=== PATIENT | female | born 1950 | race Caucasian/White ===

== ENCOUNTER → 2018-03-16 10:38 | Outpatient (CLI) | payer MEDICARE, OTHER, SELFPAY ==
--- NOTE | 2018-03-16 10:41 | BI_ITS ---
MAMMOGRAPHY - BILATERAL SCREENING REASON FOR EXAM: Female, 67 years old. Routine annual screening examination. PERTINENT HISTORY: Grandmother with breast cancer. TECHNIQUE: Digital bilateral breast festus (3D mammographic acquisition) in the CC and MLO projections. 2-D mediolateral oblique (MLO) and craniocaudad (CC) views of both breasts were obtained. CAD: Full Field Digital Mammography with Computer Added Detection was performed. COMPARISON: Comparison is made with prior study dated November 10, 2016 and July 27, 2015. FINDINGS: Breast Composition: There are scattered areas of fibroglandular density. There are no dominant masses or suspicious calcifications. There is asymmetry of breast tissue where more breast tissue is seen in the upper outer quadrant of the left breast as compared to the right side. No other significant abnormalities are identified. There has been no significant change since the prior study. BI/SCREENING MAMM (CAD), BILAT IMPRESSION: Stable bilateral screening mammogram. Yearly follow-up mammogram recommended. (A) ASSESSMENT CATEGORY: BIRADS Category 2: Benign. A letter regarding these results will be sent to the patient by the facility within 30 days. Approximately 10% of breast cancers are not detected by mammography. A normal mammogram should not delay biopsy of a clinically suspicious abnormality. [id number] Electronically Signed: Suleman Soot MD at 12:43 EDT Tel [phone], Service support ,
== END ==
PROVIDERS: Family Provider Student in an Organized Health Care Education/Training Program; PCP Student in an Organized Health Care Education/Training Program; Visit Provider Student in an Organized Health Care Education/Training Program
DX: Z12.31 Encounter for screening mammogram for malignant neoplasm of breast (principal)
CPT/HCPCS: 77063; 77067

== ENCOUNTER → 2018-07-05 06:49 | Outpatient (CLI) | payer MEDICARE, OTHER, SELFPAY ==
--- NOTE | 2018-07-05 15:05 | STRESSREP ---
Stress Test Report Exercise myocardial perfusion stress test. 68-year-old lady with a history of chest pain. Stress protocol: Resting EKG demonstrates normal sinus rhythm with a rate of 61 bpm normal intervals and noted resting blood pressure 118/70 6 m of mercury. The patient exercised according to regular Arnie protocol for total duration of 8 minutes and 30 seconds the maximum heart rate attained was 166 bpm which was 107% of maximum predicted heart rate the maximum workload was 10.1 metabolic equivalents. At rest there were no ST or T wave changes noted suggest ischemia peak exercise upsloping ST changes only were noted with no meet the criteria for ischemia. No clinical angina was noted. The test was terminated due to leg fatigue. The resting blood pressure was 118/76 with a peak blood pressure 164/72. Myocardial perfusion protocol. 11.8 mCi of technetium 99m sestamibi was injected at rest. The patient exercised according to regular Arnie protocol for 8 minutes and 30 seconds attaining 107% of maximum predicted heart rate at peak exercise 32.9 mCi of technetium 99m sestamibi was injected stress images were obtained stress and rest images were reconstructed and compared in the short axis vertical and horizontal long axis. Gated images were also obtained Perfusion SPECT analysis: Review of the stress images demonstrate normal uptake of tracer noted in all areas of the myocardium. The resting images similarly demonstrate normal uptake of tracer noted in all areas of myocardium. No areas of reversibility are noted to suggest ischemia. Gated SPECT analysis: The gated ejection fraction is 81%. Conclusion: Normal exercise myocardial perfusion stress test with no evidence of ischemia at a high workload. Preserved ejection fraction. Excellent functional capacity.
== END ==
PROVIDERS: Family Provider Student in an Organized Health Care Education/Training Program; PCP Student in an Organized Health Care Education/Training Program
DX: I25.10 Atherosclerotic heart disease of native coronary artery without angina pectoris (principal)
CPT/HCPCS: 78452; 93017; A9500; A4216

== ENCOUNTER 2018-11-06 08:59 | Emergency (ER) | payer MEDICARE, OTHER, SELFPAY ==
[2018-11-06 09:00] VITALS: BP 156/77; PULSE 72; RESP 18; TEMP 36.6; O2SAT 97; BMI 20.9
--- NOTE | 2018-11-06 10:13 | CT_ITS ---
STUDY: CTA CHEST/THORAX REASON FOR EXAM: Female, 68 years old. Left toes turning blue. RADIATION DOSAGE (If Supplied By Facility): CTDIvol = ( 5.19 ) mGy, DLP = ( 423.98 ) mGycm TECHNIQUE: The examination was performed with the intravenous administration of Isovue 370 100CC IV. Post-processing of the angiographic images was performed, with multiplanar reformation and 3D reconstruction. Individualized dose optimization techniques were used for this CT. COMPARISON: CT chest without contrast August 11, 2017 FINDINGS: Normal enhancement of the main pulmonary artery and right and left pulmonary arteries. Normal enhancement of the bilateral peripheral pulmonary arteries. There is no demonstrated pulmonary embolism. Normal thoracic aorta and visualized great vessels. There is no demonstrated aortic dissection. Normal heart and pericardium. There are calcifications of the coronary arteries. Normal mediastinum. Normal hilar regions. Normal visualized trachea and bronchi. The lungs are well expanded. Stable 2-3 mm nodular density at the anterolateral periphery of the right middle lobe on series 2 image 61. Stable 2-3 mm nodular density in the anterolateral periphery of the basilar right lower lobe on series 2 image 76. There is minor subsegmental platelike atelectasis in the inferior left lung base. Normal pleura. Normal chest wall structures. There are stable multilevel degenerative changes of the thoracic spine. There is mild left and anterior wedging of the T11 and T12 vertebrae with an exaggerated dorsal kyphosis and 25 degree dextroscoliosis centered at T12. A moderate size retrocardiac hiatal hernia is now present. IMPRESSION: 1. No demonstrated pulmonary embolism or arterial dissection. 2. Moderate size retrocardiac hiatal hernia now present. 3. Atherosclerotic vascular calcifications again noted. 4. Stable very small nodular densities in the lateral right lung base, as noted. These do not require specific radiographic follow-up. 5. Stable degenerative changes of the spine as well as exaggerated kyphosis and dextroscoliosis centered at T12. Electronically Signed: Chau Howell MD at 13:38 EST , Service support , PROCEDURE: CTA ABDOMEN AND PELVIS REASON FOR EXAM: Female, 68 years old. Left toes turning blue. RADIATION DOSAGE (If Supplied By Facility): CTDIvol = ([ ]) mGy, DLP = ([ ]) mGycm Individualized dose optimization techniques were used for this CT. ? TECHNIQUE: Axial CT angiography multi-detector data acquisition was obtained from the lung bases to the ischial tuberosities following intravenous administration of 100 ml of Isovue-370 contrast. Axial images and MIP images were reconstructed from the axial data set. Post-processing of the angiographic images was performed, with multiplanar reformation and 3D reconstruction. TECHNICAL QUALITY: Good COMPARISON: None. Descriptors of Narrowing: None (0%) Mild (< 50%) Moderate (50-70%) Severe (70-90%) Subtotal/Total Occlusion (90-100%) Non-Evaluable (technically non-diagnostic) FINDINGS: Abdominal aorta: No demonstrated plaquing, narrowing aneurysm, or dissection. Celiac artery: Mild calcific atherosclerotic ostial narrowing. Superior mesenteric artery: No demonstrated narrowing. Inferior mesenteric artery: No demonstrated narrowing. Right renal artery(arteries): No demonstrated narrowing. Left renal artery(arteries): No demonstrated narrowing. Right common iliac artery: Mild eccentric calcific atherosclerotic plaquing with no demonstrated narrowing. Right external iliac artery: No demonstrated narrowing. Right internal iliac artery: No demonstrated narrowing. Left common iliac artery: No demonstrated narrowing. Left external iliac artery: Mild narrowing at the proximal to mid third of the vessel due to mild plaquing or focal, poorly defined dissection (series 601 images 196-204). Left internal iliac artery: No demonstrated narrowing. The visualized lung bases are unremarkable. The visualized portions of the heart are within normal limits. Normal liver. The patent portal vein diameter is 10.5 mm. Normal gallbladder and extrahepatic biliary system. The diameter of the common bile duct is 5 mm. Normal spleen. Normal pancreas. Normal bilateral adrenal glands. Normal right kidney. Normal left kidney. No hydronephrosis. Normal visualized stomach. Normal small intestine. Normal colon. The appendix is visualized and appears normal. There are a few lymph nodes at the upper limits of normal size in the central left mesentery. Normal inferior vena cava. Normal retroperitoneum. Normal urinary bladder. There is absence of the uterus consistent with a prior hysterectomy. There is a very small elongated umbilical hernia containing fat. There are mild degenerative changes of the visualized lumbar spine and a 30 degree levoscoliosis centered at the upper aspect of L2. Relative lucency with coarsened trabeculae in the mid body of the L4 vertebra may represent an hemangioma. CT/CT ANGIO ABD&PEL W/O&W/DYE IMPRESSION: 1. Mild narrowing in the proximal to mid left external iliac artery due to noncalcified plaquing or focal, poorly defined dissection. No other demonstrated inflow stenosis. There is no aortic aneurysm. 2. Prior hysterectomy. 3. Degenerative changes of the spine, including a 30 degree levoscoliosis. Possible hemangioma at the L4 vertebra. Electronically Signed: Chau Howell MD at 13:50 EST , Service support ,
--- NOTE | 2018-11-06 10:14 | VDLE_ITS ---
Reason For Study: LEG PAIN RIGHT LEFT GSV is normal. GSV is normal. CFV is compressible, spontaneous, phasic, CFV is compressible, spontaneous, phasic, competent and demonstrates normal competent, and demonstrates normal augmentation. augmentation. FV is compressible, spontaneous, phasic, FV is compressible, spontaneous, phasic, competent and demonstrates normal competent and demonstrates normal augmentation. augmentation. POP V is compressible, spontaneous, phasic, POP V is compressible, spontaneous, phasic, competent and demonstrates normal competent and demonstrates normal augmentation. augmentation. T/P Trunk is compressible. T/P Trunk is compressible. PTV is compressible. PTV is compressible. RT PerV is compressible. LT PerV is compressible. Procedure Exam performed portable in ED. A preliminary report was called and/or faxed to Dr. Grullon. Interpretation Summary No evidence for acute deep venous thrombosis bilateral lower extremities with patent and compressible bilateral great saphenous veins. Ordering Physician: Maria Grullon Performed By: Jaquelin Amanda RVT
--- NOTE | 2018-11-06 10:26 | NURSING ---
LET [employer]INGLE [employer] OPERATOR KNOW OF VENOUS DOPPLER. THEY ARE IN HOUSE. HE WILL LET THEM KNOW
--- NOTE | 2018-11-06 10:32 | CT_ITS ---
STUDY: CTA CHEST/THORAX REASON FOR EXAM: Female, 68 years old. Left toes turning blue. RADIATION DOSAGE (If Supplied By Facility): CTDIvol = ( 5.19 ) mGy, DLP = ( 423.98 ) mGycm TECHNIQUE: The examination was performed with the intravenous administration of Isovue 370 100CC IV. Post-processing of the angiographic images was performed, with multiplanar reformation and 3D reconstruction. Individualized dose optimization techniques were used for this CT. COMPARISON: CT chest without contrast August 11, 2017 FINDINGS: Normal enhancement of the main pulmonary artery and right and left pulmonary arteries. Normal enhancement of the bilateral peripheral pulmonary arteries. There is no demonstrated pulmonary embolism. Normal thoracic aorta and visualized great vessels. There is no demonstrated aortic dissection. Normal heart and pericardium. There are calcifications of the coronary arteries. Normal mediastinum. Normal hilar regions. Normal visualized trachea and bronchi. The lungs are well expanded. Stable 2-3 mm nodular density at the anterolateral periphery of the right middle lobe on series 2 image 61. Stable 2-3 mm nodular density in the anterolateral periphery of the basilar right lower lobe on series 2 image 76. There is minor subsegmental platelike atelectasis in the inferior left lung base. Normal pleura. Normal chest wall structures. There are stable multilevel degenerative changes of the thoracic spine. There is mild left and anterior wedging of the T11 and T12 vertebrae with an exaggerated dorsal kyphosis and 25 degree dextroscoliosis centered at T12. A moderate size retrocardiac hiatal hernia is now present. IMPRESSION: 1. No demonstrated pulmonary embolism or arterial dissection. 2. Moderate size retrocardiac hiatal hernia now present. 3. Atherosclerotic vascular calcifications again noted. 4. Stable very small nodular densities in the lateral right lung base, as noted. These do not require specific radiographic follow-up. 5. Stable degenerative changes of the spine as well as exaggerated kyphosis and dextroscoliosis centered at T12. Electronically Signed: Chau Howell MD at 13:38 EST , Service support , PROCEDURE: CTA ABDOMEN AND PELVIS REASON FOR EXAM: Female, 68 years old. Left toes turning blue. RADIATION DOSAGE (If Supplied By Facility): CTDIvol = ([ ]) mGy, DLP = ([ ]) mGycm Individualized dose optimization techniques were used for this CT. ? TECHNIQUE: Axial CT angiography multi-detector data acquisition was obtained from the lung bases to the ischial tuberosities following intravenous administration of 100 ml of Isovue-370 contrast. Axial images and MIP images were reconstructed from the axial data set. Post-processing of the angiographic images was performed, with multiplanar reformation and 3D reconstruction. TECHNICAL QUALITY: Good COMPARISON: None. Descriptors of Narrowing: None (0%) Mild (< 50%) Moderate (50-70%) Severe (70-90%) Subtotal/Total Occlusion (90-100%) Non-Evaluable (technically non-diagnostic) FINDINGS: Abdominal aorta: No demonstrated plaquing, narrowing aneurysm, or dissection. Celiac artery: Mild calcific atherosclerotic ostial narrowing. Superior mesenteric artery: No demonstrated narrowing. Inferior mesenteric artery: No demonstrated narrowing. Right renal artery(arteries): No demonstrated narrowing. Left renal artery(arteries): No demonstrated narrowing. Right common iliac artery: Mild eccentric calcific atherosclerotic plaquing with no demonstrated narrowing. Right external iliac artery: No demonstrated narrowing. Right internal iliac artery: No demonstrated narrowing. Left common iliac artery: No demonstrated narrowing. Left external iliac artery: Mild narrowing at the proximal to mid third of the vessel due to mild plaquing or focal, poorly defined dissection (series 601 images 196-204). Left internal iliac artery: No demonstrated narrowing. The visualized lung bases are unremarkable. The visualized portions of the heart are within normal limits. Normal liver. The patent portal vein diameter is 10.5 mm. Normal gallbladder and extrahepatic biliary system. The diameter of the common bile duct is 5 mm. Normal spleen. Normal pancreas. Normal bilateral adrenal glands. Normal right kidney. Normal left kidney. No hydronephrosis. Normal visualized stomach. Normal small intestine. Normal colon. The appendix is visualized and appears normal. There are a few lymph nodes at the upper limits of normal size in the central left mesentery. Normal inferior vena cava. Normal retroperitoneum. Normal urinary bladder. There is absence of the uterus consistent with a prior hysterectomy. There is a very small elongated umbilical hernia containing fat. There are mild degenerative changes of the visualized lumbar spine and a 30 degree levoscoliosis centered at the upper aspect of L2. Relative lucency with coarsened trabeculae in the mid body of the L4 vertebra may represent an hemangioma. CT/CTA Chest W/WO Contrast IMPRESSION: 1. Mild narrowing in the proximal to mid left external iliac artery due to noncalcified plaquing or focal, poorly defined dissection. No other demonstrated inflow stenosis. There is no aortic aneurysm. 2. Prior hysterectomy. 3. Degenerative changes of the spine, including a 30 degree levoscoliosis. Possible hemangioma at the L4 vertebra. Electronically Signed: Chau Howell MD at 13:50 EST , Service support ,
[2018-11-06 10:44] LABS: Absolute Lymphocyte Count 1.25 X10^3/ul (0.83-4.51); Absolute Neutrophil Count 5.4 X10^3/uL (2.0-7.7); Basophil# 0.02 X10^3/uL; Basophil% 0.3 % (0-1); Eosinophil# 0.02 X10^3/uL; Eosinophils% 0.3 % (0-5); Hematocrit 37.7 % (37-47); Hemoglobin 12.7 g/dl (12.0-15.0); Lymphocyte # 1.25 X10^3/ul (4.0); Lymphocyte % 17.3 % (19-41); Mean Corp Hgb Conc 33.7 g/gl (32-36); Mean Corpuscular Hgb 30.1 pg (27.0-32.0); Mean Corpuscular Volume 89.3 fL (81-99); Mean Platelet Vol. 9.4 fl (6.2-12.0); Monocyte# 0.56 X10^3/uL; Monocyte% 7.8 % (0-10); Neutrophil # 5.35 X10^3/uL (2.7-7.7); Neutrophil % 74.2 % (47-70); Platelet Count 310 K/mm3 (150-450); RBC Distribution Width CV 13.3 % (11.6-14.6); RBC Distribution Width SD 42.7 fl (35.1-43.9); Red Blood Count 4.22 M/mm3 (4.2-5.4); White Blood Count 7.2 K/mm3 (4.4-11.0)
[2018-11-06 10:45] LABS: POSITIVE COUNT NO; POSITIVE DIFFERENTIAL NO; POSITIVE MORPHOLOGY NO
[2018-11-06] MEDS: 0.9% Normal Saline 1,000 ML 150 ML IV (10:50)
[2018-11-06 10:56] LABS: Anion Gap 10 (5-15); BUN 12 mg/dL (7-18); BUN/Creat Ratio 17.1 RATIO (10-20); Calcium,Total 9.2 mg/dL (8.5-10.1); Chloride 102 mmol/L (98-107); EST Glomerular Filtration Rate 88 mL/min (>60); Est Glom Filt Rate - Afr Amer 107 mL/min (>60); Estimated Creatinine Clearance 51.51 ml/min; Glucose 102 mg/dL (74-106); Sodium Level 137 mmol/L (136-145)
--- NOTE | 2018-11-06 12:04 | EKG12_ITS ---
Test Reason : CHEST PRESSUE Blood Pressure : / mmHG Vent. Rate : 068 BPM Atrial Rate : 068 BPM P-R Int : 140 ms QRS Dur : 078 ms QT Int : 428 ms P-R-T Axes : 046 001 053 degrees QTc Int : 455 ms Normal sinus rhythm with sinus arrhythmia Possible Left atrial enlargement Borderline ECG Confirmed by JIMMIE WARD, PARRIS ([id number]), video news editor ELÍAS BARBOUR ([id number]) on 11/09/2018 10:03:22 AM Referred By: YRN Confirmed By:PARRIS SAMUEL MD
[2018-11-06 12:18] VITALS: PULSE 67; RESP 16; O2SAT 100
--- NOTE | 2018-11-06 15:00 | NURSING ---
PAGED DR JONAS, VASCULAR FROM [facility]. DR DERICK WAYNE IS THE [employer] MOLDER
--- NOTE | 2018-11-06 15:28 | ED.VISSUMM ---
- ER Visit Summary Date of Service: 11/06/18 Chief Complaint: [New discoloration to toes] History of Present Illness: The patient is a 68 F [presents to the emergency department complaint of discoloration to the left toes that started 3 weeks ago. Patient was seen as an outpatient by primary care and had ABIs performed which apparently were normal. Patient was told to follow-up with vascular surgery. Patient states that over the last couple days she has noticed increased discoloration to her right toes as well intermittently. Patient also developed discomfort in her left calf today. Patient denies any claudication symptoms. Patient is able to walk on a treadmill without difficulty. Patient states that if she props her feet up the discoloration tends to resolve. She denies any chest pain or shortness of breath. She denies any fevers. Patient states overall she feels great otherwise.] Physical Examination: [HEENT-PERRLA, EOMI. Cranial nerves II through XII grossly intact. TMs clear. Mucous membranes moist. No adenopathy. Cardiovascular-regular rate and rhythm with 2 out of 6 systolic ejection murmur noted. Lungs-clear to auscultation, chest wall stable without crepitus or subcu emphysema Abdomen-normoactive bowel sounds, soft, nontender, no rebound or rigidity, no peritoneal signs. Extremities-intact ?4, normal range of motion, normal pulses, atraumatic. Evaluation of the toes does reveal a bluish discoloration to the toes on the left and right feet. Patient has normal pulses in both lower extremities. No erythema or cellulitis. There are no septic emboli noted. No petechiae. No Janeway lesions on the hands.] Test Results: [CBC with differential obtained was normal. Chemistries were normal. Venous ultrasounds of both lower extremities were negative for DVT. CTA of the chest obtained showed nothing acute. CT of the abdomen and pelvis showed a mild stenosis in the left external iliac artery with possible ill-defined dissection.] Emergency Department Course and Treatment: [Patient case was discussed with who was covering for Dr. Marie at [facility]. I discussed findings on CTA of the abdomen and it was not felt that these findings were significant however I was advised that patient follow-up with our office next week. Based on discussions I had with the vascular surgeon today and my exam I suspect patient may have a rainouts type phenomenon. I do not feel she has septic emboli or endocarditis. I was asked to have patient start nifedipine ER.] Treatment Plan: [Start patient on nifedipine ER and follow-up with vascular surgery] Disposition: [Discharged home in stable condition] Impression: [Vasculitis/Raynaud's phenomena] This note was generated with [employer] dictation software. It may contain incorrect words, spelling, and punctuation that were not noted in review of the chart prior to signing ED Disposition - Plan for ED Patient: Referrals: Naresh Payne DO [Primary Care Provider] -
--- NOTE | 2018-11-06 15:33 | ED.DCSUM_ITS ---
- ER Visit Summary Date of Service: 11/06/18 Chief Complaint: [New discoloration to toes] History of Present Illness: The patient is a 68 F [presents to the emergency department complaint of discoloration to the left toes that started 3 weeks ago. Patient was seen as an outpatient by primary care and had ABIs performed which apparently were normal. Patient was told to follow-up with vascular surgery. Patient states that over the last couple days she has noticed increased discoloration to her right toes as well intermittently. Patient also developed discomfort in her left calf today. Patient denies any claudication symptoms. Patient is able to walk on a treadmill without difficulty. Patient states that if she props her feet up the discoloration tends to resolve. She denies any chest pain or shortness of breath. She denies any fevers. Patient states overall she feels great otherwise.] Physical Examination: [HEENT-PERRLA, EOMI. Cranial nerves II through XII grossly intact. TMs clear. Mucous membranes moist. No adenopathy. Cardiovascular-regular rate and rhythm with 2 out of 6 systolic ejection murmur noted. Lungs-clear to auscultation, chest wall stable without crepitus or subcu emphysema Abdomen-normoactive bowel sounds, soft, nontender, no rebound or rigidity, no peritoneal signs. Extremities-intact ?4, normal range of motion, normal pulses, atraumatic. Evaluation of the toes does reveal a bluish discoloration to the toes on the left and right feet. Patient has normal pulses in both lower extremities. No erythema or cellulitis. There are no septic emboli noted. No petechiae. No Janeway lesions on the hands.] Test Results: [CBC with differential obtained was normal. Chemistries were normal. Venous ultrasounds of both lower extremities were negative for DVT. CTA of the chest obtained showed nothing acute. CT of the abdomen and pelvis showed a mild stenosis in the left external iliac artery with possible ill- defined dissection.] Emergency Department Course and Treatment: [Patient case was discussed with who was covering for Dr. Marie at [facility]. I discussed findings on CTA of the abdomen and it was not felt that these findings were significant however I was advised that patient follow-up with our office next week. Based on discussions I had with the vascular surgeon today and my exam I suspect patient may have a rainouts type phenomenon. I do not feel she has septic emboli or endocarditis. I was asked to have patient start nifedipine ER.] Treatment Plan: [Start patient on nifedipine ER and follow-up with vascular surgery] Disposition: [Discharged home in stable condition] Impression: [Vasculitis/Raynaud's phenomena] This note was generated with [employer] dictation software. It may contain incorrect words, spelling, and punctuation that were not noted in review of the chart prior to signing ED Disposition - Plan for ED Patient: Referrals: Naresh Payne DO [Primary Care Provider] -
--- NOTE | 2018-11-06 15:33 | ED.DEP ---
ED Disposition - Plan for ED Patient: Instructions: Raynaud's Disease Prescriptions: Nifedipine [Nifedipine ER] 30 mg PO PRN PRN #30 tablet.er PRN Reason: Rash/Topical Irritation Referrals: Naresh Payne DO [Primary Care Provider] - Additional Instructions: See Dr. Marie next week or Dr. Anthony Cartwright
[2018-11-06 15:40] VITALS: BP 116/69; PULSE 74; RESP 16; O2SAT 98
== END 2018-11-06 15:44 | disposition home or self-care (01) ==
LOC: ED 10:31
PROVIDERS: Emergency Provider Emergency Medicine; Family Provider Student in an Organized Health Care Education/Training Program; PCP Student in an Organized Health Care Education/Training Program
DX: I77.6 Arteritis, unspecified (principal); I73.00 Raynaud's syndrome without gangrene; I10 Essential (primary) hypertension; E78.00 Pure hypercholesterolemia, unspecified; M79.605 Pain in left leg; M79.604 Pain in right leg
CPT/HCPCS: 71275; 74174; 80048; 85025; 93005; 93970; 96360; 96361; 99283; J7030; Q9967; A4216

== ENCOUNTER → 2019-07-07 08:40 | Outpatient (CLI) | payer MEDICARE, OTHER, SELFPAY ==
[2019-06-01 10:21] VITALS: BMI 21.6
--- NOTE | 2019-07-07 08:48 | RAD_ITS ---
STUDY: X-RAY - LUMBAR SPINE REASON FOR EXAM: Female, 69 years old. Increasing low back pain. TECHNIQUE: 3 view(s) of the lumbar spine were obtained. COMPARISON: 07/16/2017 radiographs. FINDINGS: No visible fracture. No osseous destruction. Alignment unchanged with moderate to severe left scoliosis centered at L2. Mild degenerative changes. Soft tissues unremarkable. RAD/Lumbar Spine 2 or 3 Views IMPRESSION: No acute osseous abnormality. Moderate to severe left scoliosis centered at L2. Electronically Signed: Fabián Ribeiro, at 4:23 EDT Tel , Service support ,
== END ==
PROVIDERS: Family Provider Student in an Organized Health Care Education/Training Program; PCP Student in an Organized Health Care Education/Training Program; Referring Provider Student in an Organized Health Care Education/Training Program; Visit Provider Student in an Organized Health Care Education/Training Program
DX: M54.5 Low back pain (principal); M81.8 Other osteoporosis without current pathological fracture
CPT/HCPCS: 72100

== ENCOUNTER → 2019-07-26 10:41 | Outpatient (CLI) | payer MEDICARE, OTHER, SELFPAY ==
[2019-06-01 10:21] VITALS: BMI 21.6
--- NOTE | 2019-07-26 10:56 | BD_ITS ---
STUDY: DUAL ENERGY X-RAY ABSORPTIOMETRY / DXA REASON FOR EXAM: Female, 69 years old. The patient is postmenopausal. Loss of height. TECHNIQUE: Bone Mineral Density (BMD) measurements of lumbar spine and bilateral hips were obtained. COMPARISON: Comparison is made with prior study dated July 16, 2017. FINDINGS: Lumbar Spine (L1-L4): g/cm2 (0.822) / T-score (-3.2) / Z-score (-1.5) Findings are suggestive of osteoporosis with a high fracture risk. Increased thoracic kyphosis. Left Femur Total: g/cm2 (0.769) / T-score (-1.9) / Z-score (-0.6) Left Femoral Neck: g/cm2 (0.752) / T-score (-2.1) / Z-score (-0.5) Right Femur Total: g/cm2 (0.781) / T-score (-1.8) / Z-score (-0.5) Right Femoral Neck: g/cm2 (0.787) / T-score (-1.8) / Z-score (-0.2) The T-Scores on the most recent prior examination were: Lumbar Spine (L1-L4): There has been worsening of bone density since the previous examination. Left Femur Total: which represents a worsening of 2.5%. Right Femur Total: which represents a worsening of 2.4%. BD/Dexa Bone Density Study IMPRESSION: The patient is considered osteoporotic as outlined below according to World Jesus Organization (WHO) criteria with a high fracture risk. There has been worsening of bone density since the previous examination. Reference Information: The T-score is the number of standard deviations above or below the standard which is normal for young adults at their peak bone mineral density. The World Health Organization (WHO) interprets the T-scores as follows: Above -1 Normal bone density Between -1 and -2.5 Osteopenia Equal to / or below -2.5 Osteoporosis As a practical clinical guideline, osteopenia may be graded as follows: Mild -1 through -1.5 Moderate -1.6 through -2.0 Severe -2.1 through -2.4 The Z-score is the number of standard deviations above or below age-matched controls. A Z-score of less than -1.5 would be considered abnormal. References: 1. NIH Osteoporosis and Related Bone Diseases http://www.osteo.org 2. International Society for Clinical Densitometry http://www.iscd.org 3. National Osteoporosis Foundation http://www.nof.org Electronically Signed: Suleman Soto, at 15:14 EST , Service support ,
== END ==
PROVIDERS: Family Provider Student in an Organized Health Care Education/Training Program; PCP Student in an Organized Health Care Education/Training Program; Referring Provider Student in an Organized Health Care Education/Training Program; Visit Provider Student in an Organized Health Care Education/Training Program
DX: M81.8 Other osteoporosis without current pathological fracture (principal); M54.5 Low back pain
CPT/HCPCS: 77080

== ENCOUNTER → 2019-11-24 | Outpatient (CLI) | payer MEDICARE, SELFPAY ==
[2019-06-01 10:21] VITALS: BMI 21.6
[2019-09-26 08:23] VITALS: BMI 21.6
--- NOTE | 2019-11-24 10:05 | BI_ITS ---
MAMMOGRAPHY - BILATERAL SCREENING REASON FOR EXAM: Female, 69 years old. Routine annual screening examination. PERTINENT HISTORY: Grandmother with breast cancer. TECHNIQUE: Digital bilateral breast jude (3D mammographic acquisition) in the CC and MLO projections. 2-D mediolateral oblique (MLO) and craniocaudad (CC) views of both breasts were obtained. CAD: Full Field Digital Mammography with Computer Added Detection was performed. COMPARISON: Comparison is made with prior study dated March 16, 2018 and November 10, 2016. FINDINGS: Breast Composition: There are scattered areas of fibroglandular density. There are no dominant masses or suspicious calcifications. Stable asymmetry of breast tissue where more breast tissue is seen in the upper outer quadrant of the left breast as compared to the left side. No other significant abnormalities are identified. There has been no significant change since the prior study. BI/SCREEN MAMM (CAD) W/JUDE BILAT IMPRESSION: Stable bilateral screening mammogram. Yearly follow-up mammogram recommended. (A) ASSESSMENT CATEGORY: BIRADS Category 2: Benign. A letter regarding these results will be sent to the patient by the facility within 30 days. Approximately 10% of breast cancers are not detected by mammography. A normal mammogram should not delay biopsy of a clinically suspicious abnormality. [id number] Electronically Signed: Suleman Soto, at 12:12 EST , Service support ,
--- NOTE | 2019-11-24 10:39 | ECHOD_ITS ---
Reason For Study: MITRAL REGURGITATION Procedure This was a 2D Doppler, Color Flow transthoracic echocardiogram. Exam performed in department. Left Ventricle Normal LV size. The estimated ejection fraction is 60 %. No evidence for diastolic dysfunction. No regional wall motion abnormalities noted. Right Ventricle Normal RV size. Normal systolic function. Atria Normal left atrium. Normal right atrium. No doppler evidence for ASD. Mitral Valve Mild mitral valve prolapse, posterior leaflet. There is no mitral valve stenosis. Trivial mitral valve insufficiency. Tricuspid Valve There is no tricuspid stenosis. Trivial tricuspid valve insufficiency. Pulmonary artery systolic pressure is 30 mmHg. Aortic Valve Trisinus/trileaflet aortic valve. There is no aortic stenosis. No aortic valve insufficiency. Pulmonic Valve There is no pulmonic valvular stenosis. No pulmonic valve insufficiency. Great Vessels Normal aortic root. Pericardium/Pleural No pericardial effusion. MMode/2D Measurements & Calculations LVIDd: 4.5 cm IVSd: 0.58 cm Ao root diam: 2.9 cm LVIDs: 2.9 cm LVPWd: 0.68 cm RVDd: 3.7 cm FS: 35.9 % LAV(MOD-bp): 33.9 ml LVAd ap4: 26.8 cm2 SV(MOD-sp4): 50.5 ml LAV(MOD-bp) Indexed: 20.6 ml/m2 EDV(MOD-sp4): 76.1 ml LAV(MOD-sp2): 40.0 ml EDV(sp4-el): 81.3 ml LAV(MOD-sp4): 28.3 ml LVAs ap4: 13.6 cm2 ESV(MOD-sp4): 25.7 ml ESV(sp4-el): 27.3 ml EF(MOD-sp4): 66.3 % EF(sp4-el): 66.4 % SV(sp4-el): 54.0 ml LA A4 area: 12.4 cm2 LA dimension(2D): 3.4 cm RA A4 area: 8.4 cm2 Time Measurements MV dec time: 0.32 sec Doppler Measurements & Calculations MV E max clive: 49.7 cm/sec Lat Peak E' Clive: 14.0 cm/sec Med Peak E' Clive: 6.9 cm/sec MV A max clive: 80.4 cm/sec E/E' lat: 3.5 E/E' med: 7.2 MV E/A: 0.62 Ao V2 max: 161.5 cm/sec LV V1 max: 115.2 cm/sec PA V2 max: 159.6 cm/sec Ao max P.4 mmHg LV V1 max P.3 mmHg TR max clive: 257.4 cm/sec TR max P.5 mmHg Interpretation Summary The estimated ejection fraction is 60 %. No evidence for diastolic dysfunction. Trivial mitral valve insufficiency. Mild mitral valve prolapse, posterior leaflet Trivial tricuspid valve insufficiency. Ordering Physician: Jatin Ballesteros Referring Physician: Naresh Payne Performed By: Ayanna Almeida RDCS
== END | disposition home or self-care (01) ==
PROVIDERS: Family Provider Student in an Organized Health Care Education/Training Program; PCP Student in an Organized Health Care Education/Training Program; Referring Provider Student in an Organized Health Care Education/Training Program; Visit Provider Specialist
DX: I34.0 Nonrheumatic mitral (valve) insufficiency (principal); Z12.31 Encounter for screening mammogram for malignant neoplasm of breast
CPT/HCPCS: 77063; 77067; 93306

== ENCOUNTER 2020-07-05 08:50 | Day surgery (SDC) | payer MEDICARE, OTHER, SELFPAY ==
[2020-06-25 11:21] VITALS: BMI 21.6
--- NOTE | 2020-06-28 13:54 | RAD_ITS ---
STUDY: X-RAY CHEST REASON FOR EXAM: Female, 70 years old. chest pain, SOB -- pre heart cath TECHNIQUE: PA and lateral views of the chest. COMPARISON: 04/14/2016 FINDINGS: The lungs are clear and expanded. There is no demonstrated pleural abnormality. Normal size heart. Normal mediastinum and joe. Normal visualized pulmonary arteries. Normal visualized aortic arch and descending thoracic aorta. There is a dextroscoliosis of the thoracic spine. Normal visualized ribs, clavicles, and shoulders. There is no demonstrated abnormality of the visualized soft tissue structures of the upper abdomen. RAD/Chest PA and Lateral IMPRESSION: Normal x-ray examination of the chest. Electronically Signed: Alejo Carter MD at 15:08 EDT Tel , Service support ,
[2020-06-28 14:46] LABS: Absolute Lymphocyte Count 2.14 X10^3/uL (0.83-4.51); Absolute Neutrophil Count 4.8 X10^3/uL (2.0-7.7); Basophil# 0.04 X10^3/uL; Basophil% 0.5 % (0-1); Eosinophil# 0.06 X10^3/uL; Eosinophils% 0.8 % (0-5); Hematocrit 40.3 % (37-47); Hemoglobin 12.8 g/dL (12.0-15.0); Lymphocyte # 2.14 X10^3/ul (4.0); Lymphocyte % 28.3 % (19-41); Mean Corp Hgb Conc 31.8 g/dL (32-36); Mean Corpuscular Hgb 28.8 pg (27.0-32.0); Mean Corpuscular Volume 90.8 fL (81-99); Mean Platelet Vol. 9.8 fl (6.2-12.0); Monocyte# 0.51 X10^3/uL; Monocyte% 6.7 % (0-10); NRBC Flagged by Analyzer 0 % (0-5); Neutrophil % 63.4 % (47-70); Platelet Count 347 K/mm3 (150-450); RBC Distribution Width CV 13.1 % (11.6-14.6); RBC Distribution Width SD 43.9 fl (35.1-43.9); Red Blood Count 4.44 M/mm3 (4.2-5.4); White Blood Count 7.6 K/mm3 (4.4-11.0)
[2020-06-28 15:05] LABS: Anion Gap 6 (5-15); BUN 11 mg/dL (7-18); BUN/Creat Ratio 12.7 RATIO (10-20); Calcium,Total 9.1 mg/dL (8.5-10.1); Chloride 101 mmol/L (98-107); Creatinine, Serum 0.87 mg/dL (0.55-1.02); EST Glomerular Filtration Rate 69 mL/min (>60); Est Glom Filt Rate - Afr Amer 84 mL/min (>60); Glucose 147 mg/dL (74-106); Potassium 4.2 mmol/L (3.5-5.1); Sodium Level 136 mmol/L (136-145)
[2020-07-04 08:00] VITALS: BMI 24.0
--- NOTE | 2020-07-05 07:00 | HP_ITS ---
Intake Vital Signs 06/25/20 BMI 21.6 Intake Visit Reasons: PHONE 1 Y FU Is patient in pain?: Yes Allergies nifedipine Allergy (Intermediate, Verified 06/25/20 11:43) Unknown pantoprazole Allergy (Intermediate, Verified 06/25/20 11:43) Unknown omeprazole Adverse Reaction (Intermediate, Verified 06/25/20 11:43) Unknown Medications Multivitamin [Daily Multiple Vitamin] 1 ea PO DAILY 06/12/16 [History Confirmed 06/25/20] Lisinopril [Zestril] 5 mg PO DAILY 06/14/16 [History Confirmed 06/25/20] aspirin 325 mg tablet 325 mg PO DAILY 05/10/19 [History Confirmed 06/25/20] calcium carbonate 400 mg calcium (1,000 mg) chewable tablet 400 mg PO DAILY tab 05/10/19 [History Confirmed 06/25/20] lansoprazole 30 mg capsule,delayed release 30 mg PO DAILY 05/10/19 [History Confirmed 06/25/20] simvastatin 40 mg tablet 40 mg PO QHS 05/10/19 [History Confirmed 06/25/20] cholecalciferol (vitamin D3) 125 mcg (5,000 unit) tablet 5,000 unit PO DAILY 06/01/19 [History Confirmed 06/25/20] metoprolol tartrate 25 mg tablet 12.5 mg PO BID tab 06/01/19 [History Confirmed 06/25/20] nitroglycerin 0.4 mg sublingual tablet 0.4 mg SUBLINGUAL Q5-15M PRN 06/01/19 [History Confirmed 06/25/20] bisacodyl 5 mg tablet,delayed release 5 mg PO ONCE PRN 09/26/19 [History Confirmed 06/25/20] strontium [id number] 680 mg-30 mg tablet mg PO 09/26/19 [History Confirmed 06/25/20] zinc 50 mg tablet 50 mg PO DAILY 09/26/19 [History Confirmed 06/25/20] melatonin 10 mg capsule 30 mg PO QHS cap 06/25/20 [History Confirmed 06/25/20] [facility] Medical History Nonrheumatic mitral (valve) insufficiency (Chronic) Diastolic dysfunction (Chronic) ANDREAS treated with BiPAP (Chronic) Pulmonary hypertension (Chronic) Essential hypertension (Chronic) Hyperlipidemia (Chronic) Mitral valve prolapse (Chronic) DDD (degenerative disc disease), lumbar (Chronic) GERD (gastroesophageal reflux disease) (Chronic) Insomnia (Chronic) Osteoporosis (Chronic) Sliding hiatal hernia (Chronic) Spondylosis of lumbar region without myelopathy or radiculopathy (Chronic) Raynauds disease (Ruled-out) Surgical History History of left heart catheterization (Resolved) History of bilateral cataract extraction (Resolved) History of mandibular surgery (Resolved) History of radial keratotomy (Resolved) History of tonsillectomy (Resolved) History of total abdominal hysterectomy and bilateral salpingo-oophorectomy (Resolved) Family History Mother Seizures CVA (cerebral vascular accident) Father CVA (cerebral vascular accident) Sister , 59 years CAD (coronary artery disease) AAA (abdominal aortic aneurysm) Addiction Social History (Updated 06/25/20 @ 12:[address] Jatin Ballesteros MD) Smoking Status: Former smoker how long ago did patient quit smokin years ago alcohol intake: current alcohol intake frequency: a few times a week Alcohol type: wine substance use type: does not use caffeine: Yes Type: coffee Number of servings: 3 HPI HPI Details: Patient was informed that this visit will be billed to patient. This visit was conducted during COVID-19 pandemic 06/01/2019: 69 -year-old female with past medical history of mild coronary artery disease (50% lesion in the RCA with an FFR of 0.[address] Pereira and Dr[address] Chang), mitral valve prolapse with mild to moderate mitral regurgitation in 2017 coming to establish care with me. She had seen Dr. 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 She had a stress test in June 2018 which showed an EF of greater than 70% and no evidence of ischemia. Her last echo was in August 2017.She has some episodes of chest pain that are short-lived about 3-4 times a month. She does have a hiatal hernia and feels that it could be related to this. This has not changed since her last coronary angiogram in 2016. 06/25/2020: Patient has been having new chest discomfort that happens at rest and sometimes with exertion. It is not clearly related to exertion. However whenever she goes on a hike she has been having nausea and cold sweats. This has been over the last 1 month and symptoms appear to be getting worse. Patient does have known RCA stenosis that was diagnosed in 2016. The lesion at that time was not significant enough to perform PCI. She has also been having dyspnea on exertion. ROS Const Constitutional: Positive for excessive sweating and fatigue; no frequent falls, headache(s) or weakness Eyes Eyes: No blurry vision, change in vision, double vision, discharge, dry eyes, bulging eyes, floaters, visual disturbances, eye pain, light sensitivity, spots in vision, tunnel vision or other ENT ENT: No nosebleed/epistaxis or headache(s) Resp Respiratory: Positive for shortness of breath sob: SOB with activity (Increased from normal when hiking); no cough Cardio Cardiology: Positive for chest pain at rest (lasts about 30 seconds, increased with hiking) Symptoms: Stabbing, Squeezing, chest pain with exertion (Lasts about 30 secs, increased) Symptoms: Stabbing, Squeezing, excessive sweating, lightheadedness and palpitations (C/o heart racing, missed beats); no generalized swelling Gastro GI: Positive for nausea/dyspepsia Musc Musculoskeletal: Positive for joint pain Neuro Neurology: No dizziness, weakness, frequent falls, headache(s) or visual disturbances Endo Endocrine: Positive for excessive sweating and fatigue Exam Const Other: This is a phone visit and physical examination was not performed Details: Details:: Exam was limited due to phone visit with no video. Quality Reporting Medication Reconciliation ([facility] 68) aspirin (Sarah Aspirin) 325 mg PO DAILY bisacodyl (Dulcolax (bisacodyl)) 5 mg PO ONCE PRN calcium carbonate 400 mg PO DAILY cholecalciferol (vitamin D3) 5,000 units PO DAILY lansoprazole 30 mg PO DAILY lisinopril 5 mg PO DAILY melatonin 30 mg PO QHS metoprolol tartrate 12.5 mg PO BID multivitamin 1 ea PO DAILY nitroglycerin 0.4 mg sublingual Q5-15M PRN simvastatin 40 mg PO QHS strontium [id number] 680 mg-30 mg tablet PO zinc 50 mg PO DAILY BMI Screening (CMS 69) Body Mass Index (BMI): 21.6 Tobacco Screening (CMS 138) Smoking Status: Former smoker Assessment & Plan 1. Coronary artery disease involving [place] coronary artery of [place] heart without angina pectoris I25.10 Stable. Continue current medications. Plan Patient has some symptoms that are concerning for ischemia involving the RCA territory. She consistently gets nausea and cold sweats with hiking which she has done without any symptoms in the past. We will proceed with coronary angiography to evaluate this further. Risks and benefits explained in detail. Orders Orders: Left Heart Cath/COR/LV Percut Today Basic Metabolic Profile (BMP) Today Prothrombin Time w/INR Today CBC W/Diff, Automated Today 2. Nonrheumatic mitral (valve) insufficiency I34.0 Plan Echo in 11/2019 revealed trivial mitral insufficiency. Will monitor. 3. Diastolic dysfunction I51.89 Plan Last echo in November 2019 revealed no diastolic dysfunction. 4. History of left heart catheterization Z98.890 06/13/16, 07/03/16 No intervention 5. Essential hypertension I10 Plan Continue present management 6. Hyperlipidemia, unspecified hyperlipidemia type E78.5 Plan Continue present management 7. Pulmonary hypertension I27.20 Plan Echo in November 2019 revealed PA systolic pressure of 30 mmHg Plan Detail Additional Comments 16-minutes spent in this medical discussion/patient encounter Follow Up 4 Weeks Coding Level of Care Code Level 2 Telephone Diagnoses Coronary artery disease involving [place] coronary artery of [place] heart without angina pectoris I25.10 ??Coronary Disease-Associated Artery/Lesion type: [place] artery ??[place] vs. transplanted heart: [place] heart ??Associated angina: without angina Nonrheumatic mitral (valve) insufficiency I34.0 Diastolic dysfunction I51.89 History of left heart catheterization Z98.890 Essential hypertension I10 Hyperlipidemia, unspecified hyperlipidemia type E78.5 ??Hyperlipidemia type: unspecified Pulmonary hypertension I27.20
--- NOTE | 2020-07-05 11:33 | CL.I_ITS ---
Patient Name: JED ESTEBAN Study Date: 07/05/2020 Performing: Sigrid Ballesteros MD Ht: 62.99 inches 160 cm : 1950 Wt: 136.69 lbs 62 kg Age: 70 Gender: female BSA: 1.64 PROCEDURE(S) PERFORMED [id number]/COR/LV [id number] W OR WO PTCA, SINGLE CORONARY ARTERY CLINICAL PROFILE AND CO-MORBIDITIES Indications: Worsening Angina Heart Failure: None Stress/Imaging Stress/Image Study Performed: No CAD Presentations: Unstable angina. CONCLUSIONS CAD as described. Preserved EF. No significant or MR. Successful PCI of pRCA with MAKENZIE RECOMMENDATIONS ASA Indefinitleander Brlavellta for at least 12 months DESCRIPTION OF PROCEDURE The patient arrived to the procedure lab. The risks and benefits of the procedure as well as a full d escription of our services here and lack of surgical backup were fully explained to the patient and/o r their significant other prior to the catheterization. The Timeout was completed, verifying the mary ect patient and procedure. The patient's procedural site was prepped and draped in the usual fashion. Local anesthetic was given subcutaneously to right groin region with Lidocaine 2%. Using a modified Seldinger technique, arterial access was obtained via the right radial artery, a 6Fr sheath was inser markell.. Left Coronary Artery selective angiography was performed in multiple views using a 5 Fr. JL3.5 catheter. Left Ventriculography was performed in L[place] projection using a 5 Fr. JL 3.5 catheter. LV to AO pullback pressures were then recorded. Right Coronary Artery selective angiography was then perfo rmed in multiple views using a 5 Fr. JR 4 catheter JR4 Guide catheter was inserted and engaged into the RCA. [employer] [place] Guide wire was advanced t o the RCA. Emerge 3.0 x 12 Balloon catheter was inserted. Balloon catheter was advanced across lesion in the right coronary, proximal. PTCA balloon inflated at 12 atms for 15 secs. PTCA balloon inflated at 14 atms for 19 secs. Synergy 4.0 x 16 Drug Eluting stent was inserted. Drug Eluting stent was adv anced across the lesion in the right coronary, proximal. Angiogram performed pre stent deployment. An giogram performed post stent deployment. The arterial sheath was pulled and a TR Band was applied f or hemostasis CORONARY ANGIOGRAPHY DOMINANCE: Right Dominant LEFT HEART ASSESSMENT Left Ventricular Ejection Fraction: by LV Gram 70 % Normal LV wall motion LEFT MAIN: No significant disease noted LEFT ANTERIOR DESCENDING ARTERY: MID LAD: 30-40 % Stenosis CIRCUMFLEX ARTERY: Mild luminal irregularities RIGHT CORONARY ARTERY: PROX RCA: 80 % Stenosis VALVE FINDINGS: No Aortic Valve Stenosis No Mitral Insufficency INTERVENTION INFORMATION LESION SITE: RCA (Proximal) Lesion Complexity: High/C, Lesion Complexity: High/C, chronic total occlusion: No, lesion at bifurcat ion: No, thrombus present: No, lesion length: 12 mm, culprit lesion: Yes, Previously treated lesion: No Pre Stenosis: 80 % Pre intervention KARLA flow: 3 PROCEDURE: Drug Eluting Stent with pre dilatation. Post Stenosis: 0 % Post intervention KARLA flow: 3 Lesion Devices: Armstrong .014 [employer] [place] Straight 190cm Cardinal 6 Fr JR4 100cm Guide Catheter David Sci EMERGE MR 3.00x12 BALLOON David Sci Synergy MR MAKENZIE 4.00x16 COMPLICATIONS No Complications PROCEDURE MEDICATIONS Fentanyl 50 mcg IV Versed 1 mg IV Versed 0.5 mg IV Versed 0.5 mg IV Oxygen: 2 L/min via nasal cannula Brilinta 180 mg PO @ 07/05/2020 11:04:01 Heparin given IA 07/05/2020 10:32:07 Heparin 2000 unit(s) IV 07/05/2020 10:48:46 Verapamil 2.5mg, Ntg 100mcgs, 3000 units of Heparin given IA 07/05/2020 10:32:07 IV Bolus: .9 NaCl 400 ml total 07/05/2020 11:04:08 SUMMARY OF HEMODYNAMIC DATA Time AIR REST ECG 10:11:18 LV 105/1, 4 10:34:39 LV 105/1, 4 10:34:45 AO 103/56 (75) SA 10:37:09 LV 136/-10, 17 10:42:36 LV 108/-8, 13 10:42:43 LV 125/-8, 11 10:43:30 LVp 120/-1, 13 10:43:50 AOp 136/58 (90) 10:43:55 Signed By Sigrid Ballesteros MD On 07/05/2020 11:32:12 AM Sigrid Ballesteros MD
--- NOTE | 2020-07-05 11:45 | EKG12_ITS ---
Test Reason : POST PCI Blood Pressure : / mmHG Vent. Rate : 054 BPM Atrial Rate : 054 BPM P-R Int : 160 ms QRS Dur : 084 ms QT Int : 446 ms P-R-T Axes : 062 010 062 degrees QTc Int : 422 ms Sinus bradycardia Otherwise normal ECG Confirmed by MIKY WARD, SHIMA ([id number]), pictures editor RENNY CASTELLANOS ([id number]) on 07/09/2020 8:09:46 AM Referred By: Jatin Ballesteros Confirmed By:SHIMA BOLAÑOS MD
--- NOTE | 2020-07-05 12:50 | CRPHASE1_ITS ---
Patient Communication Former Patient:: Phase I PHII Cardiac Rehab Discussed with Patient:: Yes Guide to Cardiac Rehab Given to Patient:: Yes Cardiac Rehab Facility Choice List Given to Patient:: Yes Choice Program [facility] CR PHII:: Communication Given to CR Choice Program Other:: Communication Given to CR Application Security Developer:: Jatin Ballesteros Phase II Cardiac Rehab:: Yes Sessions:: 36 sessions - 3 days/wk, 12 weeks Risk Factors/Lifestyle Smoking Status: Former smoker Second-Hand Smoke:: No Hx Hypertension: Yes Hx Diabetes Mellitus Type 1: No Hx Diabetes Mellitus Type 2: No Hx Metabolic Disorders: No Hx Dyslipidemia: Yes Hx Obesity: No Post-Menopausal: No Stress: Recent ETOH: No Caffeine: No Substance Abuse: No Risk Factor for Sedentary Lifestyle: Lowest Risk Family History: Family History (Last Reviewed 06/25/20 @ 12:[address] Jatin Ballesteros MD) Mother Seizures CVA (cerebral vascular accident) Father CVA (cerebral vascular accident) Sister CAD (coronary artery disease) AAA (abdominal aortic aneurysm) Addiction Past Cardiac Illness: Valve Disorders, Heart Murmur, Coronary Artery Disease, Myocardial Infarction Phase I Education Given On:: [place], Nutrition, Antiplatelet medication Issues Affecting Care:: None Knowledge of Condition:: Yes Learning Preferences: Verbal Cardiac Rehabilitation Info Cardiac Rehabilitation Program Information: Cardiac Rehabilitation is important for patients like you who are recovering from a heart problem. Cardiac rehabilitation programs are recognized as integral to the continued care of the patient with coronary heart disease. The cardiac rehabilitation program is designed to optimize a patient's physical, psychological, and social functioning. Health cardiac care unit nurse work in cardiac rehabilitation programs and assist you with getting the treatments you need to get stronger and healthier - like exercise, healthy eating habits, and medications. Cardiac rehabilitation has been show to help people with heart problems live longer and have better life enjoyment than people who do not go to cardiac rehabilitation. Please contact the Cardiac Rehabilitation Program at [facility] at in two weeks if you have not heard from them.
--- NOTE | 2020-07-05 12:52 | CRPH1.INSTRU ---
General Education CAD and cardiac anatomy and function:: Patient communicates acknowledgment Explanation of diagnoses and procedures:: Patient communicates acknowledgment Sign/Symptoms of ID:: Patient communicates acknowledgment Antiplatelet therapy: Patient communicates acknowledgment Proper use of NTG-SL: Patient communicates acknowledgment Emergency procedures and activation of EMS: Patient communicates acknowledgment Compliance of all prescribed medications: Patient communicates acknowledgment Smoking Recommendations Include:: Previous smoker; encourage continued cessation Nicotine/Smoking Response Code:: Patient communicates acknowledgment Dyslipidemia Patient Dyslipidemia Risk Factors Are:: Total Cholesterol, Triglycerides, HDL, LDL Recommendations Include:: Lipid profile not available, Reviewed NCEP/ATP guidelines, Therapeutic Lifestyle Change dietary guidelines Dyslipidemia Response Code:: Patient communicates acknowledgment Overweight/Obesity Patient Overweight/Obesity Risk Factors Are:: BMI Normal [24-29 & > 65 years old] Recommendations Include:: Exercise 5-7 times/week Overweight/Obesity:: Patient communicates acknowledgment Hypertension Recommendations Include:: Maintain BP <130/85, DASH dietary guidelines, Decrease/maintain normal body weight, Moderation of ETOH Hypertension:: Patient communicates acknowledgment Heart Disease Patient Heart Disease Risk Factors Are:: Previous cardiac event Recommendations Include:: Educated family members of their risk Heart Disease Response Code:: Patient communicates acknowledgment Stress Recommendations Include:: Identification of stressors, and assessment of coping skills, Stress management techniques Stress Response Code:: Patient communicates acknowledgment
[2020-07-05 14:45] VITALS: BP 125/58; PULSE 63; RESP 16; TEMP 37; O2SAT 99
[2020-07-05 14:57] VITALS: BMI 24.0
[2020-07-05] MEDS: 0.9% Normal Saline 1,000 ML 60 ML IV (15:00)
[2020-07-05 15:16] VITALS: PULSE 64
[2020-07-05 16:41] LABS: Hematocrit 36.5 % (37-47); Hemoglobin 11.7 g/dL (12.0-15.0); Mean Corp Hgb Conc 32.1 g/dL (32-36); Mean Corpuscular Hgb 29.1 pg (27.0-32.0); Mean Corpuscular Volume 90.8 fL (81-99); Mean Platelet Vol. 9.6 fl (6.2-12.0); Platelet Count 304 K/mm3 (150-450); RBC Distribution Width CV 13.3 % (11.6-14.6); RBC Distribution Width SD 44.4 fl (35.1-43.9); Red Blood Count 4.02 M/mm3 (4.2-5.4); White Blood Count 9.9 K/mm3 (4.4-11.0)
[2020-07-05] MEDS: Acetaminophen 325 MG Tablet 650 MG PO (16:56)
[2020-07-05 18:29] VITALS: BP 112/55; PULSE 65; RESP 16; TEMP 37.1; O2SAT 99
[2020-07-05 19:00] VITALS: PULSE 60
[2020-07-05 21:21] VITALS: BP 133/69; PULSE 60; RESP 16; TEMP 37; O2SAT 98
[2020-07-05 22:59] VITALS: PULSE 57
[2020-07-06] VITALS (7 sets, daily range): BP systolic 130–144; BP diastolic 64–78; PULSE 55–68; RESP 14–16; TEMP 36.6–37; O2SAT 96–100
[2020-07-06 06:24] LABS: Hemoglobin 12.2 g/dL (12.0-15.0); Mean Corp Hgb Conc 32.1 g/dL (32-36); Mean Corpuscular Volume 90.5 fL (81-99); Mean Platelet Vol. 9.7 fl (6.2-12.0); Platelet Count 300 K/mm3 (150-450); RBC Distribution Width CV 13.4 % (11.6-14.6); RBC Distribution Width SD 44.2 fl (35.1-43.9); White Blood Count 7.2 K/mm3 (4.4-11.0)
[2020-07-06 06:53] LABS: ALB/GLOB Ratio 0.9 RATIO (0.9-2.4); AST(SGOT) 18 U/L (15-37); Alanine Aminotransfer ALT/SGPT 23 U/L (13-56); Albumin, Serum 3.5 g/dL (3.2-5.0); Alkaline Phosphatase 102 U/L (45-117); Anion Gap 4 (5-15); BUN 9 mg/dL (7-18); BUN/Creat Ratio 13.6 RATIO (10-20); Calcium,Total 9.1 mg/dL (8.5-10.1); Chloride 111 mmol/L (98-107); Creatinine, Serum 0.66 mg/dL (0.55-1.02); EST Glomerular Filtration Rate 94 mL/min (>60); Est Glom Filt Rate - Afr Amer 114 mL/min (>60); Estimated Creatinine Clearance 44.54 ml/min; Globulin 3.7 g/dL (2.2-4.2); Glucose 85 mg/dL (74-106); Potassium 3.7 mmol/L (3.5-5.1); Protein, Total 7.2 g/dL (6.4-8.2); Sodium Level 142 mmol/L (136-145)
[2020-07-06] MEDS: TICAGRELOR 90 MG TABLET PO (09:00)
--- NOTE | 2020-07-06 10:00 | EKG12_ITS ---
Test Reason : AM EKG Blood Pressure : / mmHG Vent. Rate : 059 BPM Atrial Rate : 059 BPM P-R Int : 148 ms QRS Dur : 074 ms QT Int : 438 ms P-R-T Axes : 053 004 054 degrees QTc Int : 433 ms Sinus bradycardia Otherwise normal ECG Confirmed by MIKY WARD, SHIMA ([id number]), video effects editor RENNY CASTELLANOS ([id number]) on 07/09/2020 8:04:56 AM Referred By: Jatin Ballesteros Confirmed By:SHIMA BOLAÑOS MD
[2020-07-06] MEDS: Lisinopril 5 MG Tablet PO (10:12)
[2020-07-06] MEDS: Metoprolol Tartrate 25 MG Tablet 12.5 MG PO (10:12)
[2020-07-06] MEDS: Aspirin 81 MG TAB.CHEW PO (10:37)
--- NOTE | 2020-07-06 12:17 | DCINST_ITS ---
Discharge Diet: Low fat/ Low Cholesterol Lifting Restrictions: 10 pounds and also avoid any pushing or pulling for 3 days after your test. Call your doctor if your incision/area has: Continuous Slow Oozing, Sudden Increased Bleeding, Increased Pain/ Swelling, Increased Redness, Foul Smelling Discharge, Swelling at the incision site Call your doctor if you observe: Fever of 101 or Higher, Coldness, Increased Pain, Numbness or Tingling, Change in Color, Inability to urinate, Inability to have a bowel movement, Using more than one pad per hour, Shortness of breath, Dizziness, Fainting spells, Swelling in the ankles, Chest pain, Prolonged hiccoughing, Uncontrolled pain Remove Dressing in (days):: 1 Additional Dressing/Incision Instructions:: Keep the dressing (bandage) on until the next morning. You may then shower, but do not take a tub bath for 5 days after your test. It is normal to have some tenderness and discomfort at the puncture site. Sometimes bruising also occurs. However, if pain, numbness, or coldness occurs below the puncture site (in your leg, toes, arms or fingers) call your doctor at once. You may have a small, marble sized knot at the puncture site. This is normal. Do not rub it. It will go away in 4-6 weeks. Bleeding can occur from the area where the puncture was done. Blood may spurt or drip from the site. If blood spurts, apply pressure right away to stop bleeding and call 911. Although rare, bleeding into the tissue (hematoma) can also occur. If this happens, a large, firm area goose egg under the skin will appear. If any of these occur, lie down as flat as you can and have someone apply firm pressure to the cath site with a gauze pad or a clean washcloth for 10-15 minutes. Call 911 or go to the Emergency Department. Allergies/Adverse Reactions: Allergies nifedipine Allergy (Intermediate, Verified 06/25/20 11:43) Unknown pantoprazole Allergy (Intermediate, Verified 06/25/20 11:43) Unknown omeprazole Adverse Reaction (Intermediate, Verified 06/25/20 11:43) Unknown Medications to take at Discharge Multivitamin [Daily Multiple Vitamin] 1 ea PO DAILY 06/12/16 Lisinopril [Zestril] 5 mg PO DAILY 06/14/16 calcium carbonate 400 mg calcium (1,000 mg) chewable tablet 400 mg PO DAILY tab 05/10/19 lansoprazole 30 mg capsule,delayed release 30 mg PO DAILY 05/10/19 simvastatin 40 mg tablet 40 mg PO QHS 05/10/19 cholecalciferol (vitamin D3) 125 mcg (5,000 unit) tablet 5,000 unit PO DAILY 06/01/19 metoprolol tartrate 25 mg tablet 12.5 mg PO BID tab 06/01/19 nitroglycerin 0.4 mg sublingual tablet 0.4 mg SUBLINGUAL Q5-15M PRN 06/01/19 bisacodyl 5 mg tablet,delayed release 5 mg PO ONCE PRN 09/26/19 strontium gluconate-vitamins [id number]-jlwis acid 680 mg-30 mg tablet mg PO 09/26/19 zinc 50 mg tablet 50 mg PO DAILY 09/26/19 melatonin 10 mg capsule 30 mg PO QHS cap 06/25/20 Aspirin [Aspirin, Baby] 81 mg PO DAILYCM tab.chew 07/06/20 Ticagrelor [Brilinta] 90 mg PO BID #60 tab 07/06/20 The following prescriptions were given: Ticagrelor [Brilinta] 90 mg PO BID #60 tab Transmission Status: Pending to [facility] Orders to be completed after discharge: Phase II, Outpatient Cardiac Rehab Location: None Selected Primary Care Physician: Naresh Payne DO [Primary Care Provider] - Test Results: Test results from this visit will be discussed in further detail at your follow- up appointment, if applicable. Please Follow Up With: Jatin Ballesteros MD - 2-4 weeks Cardiac Rehabilitation Info Cardiac Rehabilitation Program Information: Cardiac Rehabilitation is important for patients like you who are recovering from a heart problem. Cardiac rehabilitation programs are recognized as integral to the continued care of the patient with coronary heart disease. The cardiac rehabilitation program is designed to optimize a patient's physical, psychological, and social functioning. Health patient care manager work in cardiac rehabilitation programs and assist you with getting the treatments you need to get stronger and healthier - like exercise, healthy eating habits, and medications. Cardiac rehabilitation has been show to help people with heart problems live longer and have better life enjoyment than people who do not go to cardiac rehabilitation. Please contact the Cardiac Rehabilitation Program at [facility] at in two weeks if you have not heard from them.
--- NOTE | 2020-07-06 12:38 | PCM.PN.BLA ---
Progress Note Discharge summary Date of admission 07/05/2020 Date of discharge: 07/06/2020 Reason for the hospital visit: For cardiac catheterization Diagnosis: coronary artery disease Hospital course: Patient underwent cardiac catheterization without any complications she had PCI of the RCA and was observed in the hospital overnight. She is doing well and is being discharged home in a stable condition. She will follow-up with me as an outpatient. STROKE Vital Signs/Narrative: Vital Signs Temp Pulse Resp BP Pulse Ox 07/06/20 12:33 97.9 F 55 L 14 130/72 H 100 07/06/20 10:12 68 07/06/20 08:54 98.6 F 68 16 144/78 H 98
--- NOTE | 2020-07-06 12:39 | CASEMGMT ---
Pt provided with Brilinta 30 day free card at this time. Pt voices no further questions/concerns/needs at this time. Kj SOTO CM
== END 2020-07-06 12:21 | disposition home or self-care (01) ==
LOC: CLSP 08:50 → PCU 15:29
PROVIDERS: PCP Student in an Organized Health Care Education/Training Program; Referring Provider Specialist; Visit Provider Specialist
DX: I25.119 Atherosclerotic heart disease of native coronary artery with unspecified angina pectoris (principal); I34.0 Nonrheumatic mitral (valve) insufficiency; I51.89 Other ill-defined heart diseases; I10 Essential (primary) hypertension; E78.5 Hyperlipidemia, unspecified; I27.20 Pulmonary hypertension, unspecified; K21.9 Gastro-esophageal reflux disease without esophagitis; Z79.899 Other long term (current) drug therapy; Z87.891 Personal history of nicotine dependence
CPT/HCPCS: 36415; 71046; 80048; 80053; 85025; 85027; 85610; 92928; 93005; 93458; 99152; 99153; J7030; J7040; Q9967; C1725; C1769; C1874; C1887; C1894; C9600; J1327

== ENCOUNTER → 2020-07-18 12:36 | Outpatient (CLI) | payer MEDICARE, OTHER, SELFPAY ==
[2020-07-05 14:57] VITALS: BMI 24.0
[2020-07-16 09:49] VITALS: BMI 22.1
--- NOTE | 2020-07-18 12:47 | CR.HP_ITS ---
CR - History & Physical - General Arrival date:: 07/18/20 - 3 Arrival time:: 12:48 Date of Referral:: 07/05/20 Date of CR Evaluation:: 07/18/20 Referring Physician: Dr. Jatin Ballesteros Primary Diagnosis: Z95.5 PCI with stent - History of Present Cardiac Event Onset Date: Enter Onset Date of cardiac illnesses in Comment field below PTCA or coronary stenting:: Yes - 07/05/2020 Were there any complications?: fatigue, SOB, headaches - Medications Home Medications: Ambulatory Orders Medication Instructions Recorded Multivitamin [Daily Multiple 1 ea PO DAILY 06/12/16 Vitamin] Lisinopril [Zestril] 5 mg PO DAILY 06/14/16 calcium carbonate 400 mg calcium 400 mg PO DAILY tab 05/10/19 (1,000 mg) chewable tablet lansoprazole 30 mg capsule,delayed 30 mg PO DAILY 05/10/19 release simvastatin 40 mg tablet 40 mg PO QHS 05/10/19 cholecalciferol (vitamin D3) 125 5,000 unit PO DAILY 06/01/19 mcg (5,000 unit) tablet metoprolol tartrate 25 mg tablet 12.5 mg PO BID tab 06/01/19 bisacodyl 5 mg tablet,delayed 5 mg PO ONCE PRN 09/26/19 release strontium gluconate-vitamins mg PO 09/26/19 [id number]-wpqre acid 680 mg-30 mg tablet zinc 50 mg tablet 50 mg PO DAILY 09/26/19 melatonin 10 mg capsule 30 mg PO QHS cap 06/25/20 Aspirin [Aspirin, Baby] 81 mg PO DAILYCM tab.chew 07/06/20 nitroglycerin 0.4 mg sublingual 0.4 mg SUBLINGUAL Q5-15M PRN #25 07/12/20 tablet tab clopidogrel 75 mg tablet 75 mg PO QDAY #90 tab 07/16/20 - Allergies Allergies/Adverse Reactions: Allergies nifedipine Allergy (Intermediate, Verified 07/16/20 09:44) Unknown pantoprazole Allergy (Intermediate, Verified 07/16/20 09:44) Unknown omeprazole Adverse Reaction (Intermediate, Verified 07/16/20 09:44) Unknown - Sleep Disorder Evaluation Hx of Sleep Apnea: Yes Do you snore loudly (louder than talking or can be heard through closed doors)?: No Do you often feel tired/ fatigued/ sleepy during daytime?: Yes Has anyone observed you stop breathing during sleep?: No History of Hypertension (for STOP score): Yes - Pt is treated with BiPAP STOP Results: Positive Advanced Directives - Advanced Directives Power of Electronic Component Processor: Yes Living Will: Yes Advance Directives Information Provided: Yes Advance Directives on File: No DNR Order?:: No Past Medical History - Covid-19 Screening Fever: No Unexplained muscle aches: No Current respiratory symptoms: No Upper respiratory infections symptoms: No Gastro-intestinal symptoms: No Zig-Nibo-Zdaqsi symptoms: No Has tested positive for COVID-19 in last 30 days: No Had contact w/person w/symptoms or Covid-19 (+) last 14 days: No Has High Risk Exposures ID'd by Health dept/Inf Control team: No 65 years or older:: No Lives in Assisted Living facility:: No Has a chronic lung disease or moderate to severe asthma:: No Has a serious heart condition:: Yes Immunocompromised:: No Severely obese (Body Mass Index of 40 or higher):: No Diabetic:: No Has chronic kidney disease undergoing dialysis:: No Has liver disease:: No - Past Medical Illness Medical History: Past Medical History (Last Updated 07/05/20 @ 11:37 by Monica Henderson) Atherosclerosis of coronary artery of [place] heart without angina pectoris (Chronic) I25.10 Nonrheumatic mitral (valve) insufficiency (Chronic) I34.0 Diastolic dysfunction (Chronic) I51.89 ANDREAS treated with BiPAP (Chronic) G47.33 Pulmonary hypertension (Chronic) I27.20 Essential hypertension (Chronic) I10 Hyperlipidemia (Chronic) E78.5 Mitral valve prolapse (Chronic) I34.1 DDD (degenerative disc disease), lumbar M51.36 GERD (gastroesophageal reflux disease) K21.9 Insomnia G47.00 Osteoporosis M81.0 Sliding hiatal hernia K44.9 Spondylosis of lumbar region without myelopathy or radiculopathy M47.816 Raynauds disease I73.00 - Past Surgical History Surgical History: Past Surgical History (Last Updated 07/05/20 @ 11:37 by Monica Henderson) History of coronary artery stent placement (Chronic) Z95.5 4.00 x 16 mm Synergy MR MAKENZIE to pRCA 07/05/20 History of left heart catheterization (Resolved) Z98.890 06/13/16, 07/03/16 No intervention History of bilateral cataract extraction Z98.41, Z98.42 History of mandibular surgery Z98.890 History of radial keratotomy Z98.890 bilateral History of tonsillectomy Z90.89 History of total abdominal hysterectomy and bilateral salpingo-oophorectomy Z90.710, Z90.722, Z90.79 - Family History Summary Family History: Family History (Last Reviewed 06/25/20 @ 12:[address] 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 Left click = Reports ([place]) Review of Present Symptoms: Reports: Shortness of Breath with Exertion, Angina, Dizziness/Lightheadedness, Fatigue, Heart Arrhythmia/Irregularities - feels heart racing, Appetite - Normal, Appetite - Special Diet, Sleep - Normal. Denies: Shortness of Breath at Rest, PVD, Operative Discomfort, Wound Healing, Sexual Changes - Pain Is Patient Pain Free?: No Pain Location: chest - little bit of CP Pain Level: 2/10 Risk Factor Assessment - Chief Complaint Chief Complaint: PCI with stent - Vital Signs Pulse Ox: 98 - Pulse Pulse Rate: 66 Pulse Rhythm: Regular - Hypertension Blood Pressure Sitting - Left Arm: 124/80 - Diabetes Nutrition Referral for Diabetes: No - Obesity Height: 5 ft 5 in Weight:: 58.967 kg Weight in Pounds: 130.0 lbs Body Mass Index (BMI): 21.6 Nutritional Referral for Obesity: No - Physical Inactivity Physical Inactivity: Reg Exercise 30 min/day - was walking on a regular basis - Risk Stratification Risk Guidelines: Lowest Risk: Risk Factor for Obesity, Moderate Risk: Risk Factor for Smoking, Risk Factor for Dyslipidemia, Risk Factor for Diabetes, Risk Factor for Hypertension, Risk Factor for Sedentary Lifestyle, Risk Factor for Depression - For Smoking Smoking Risk Guidelines: Smoking Low Risk: None or quit greater than 6 months ago. Smoking Moderate Risk: Smoker or quit 6 months or less ago. Smoking High Risk: Smoker - For Dyslipidemia Dyslipidemia Risk Guidelines: Low Risk: Moderate Risk: High Risk: 15-25% fat 25.1-29% fat >/= 30% fat. <7% sat fat 7-9% sat fat >9% sat fat. <150 mg chol 150-299 mg chol >/= 300 mg chol. LDL <100 LDL 100-129 LDL >/= 130. Chol/HDL ratio <5.0 Chol/HDL ratio 5.0-6.0 Chol/HDL ratio >6.0. Triglycerides <100 Triglycerides 100-149 Triglycerides >/= 150 - For Diabetes Mellitus Diabetes Risk Guidelines: Diabetes Low Risk: HgA1c <6.5% and/or FBG <120. Diabetes Moderate Risk: HgA1c 6.6-7.9% and/or FBG 120-180. Diabetes High Risk: HgA1c >/= 8% and/or FBG >180 - For Obesity/Overweight Obesity/Overweight Risk Guidelines: Obesity Low Risk: BMI <25.0. Obesity Moderate Risk: BMI 25-29.9. Obesity High Risk: BMI >/= 30.0 - For Hypertension Hypertension Risk Guidelines: Hypertension Low Risk: Systolic <120 and Diastolic <80. Hypertension Moderate Risk: Systolic 120-139 and Diasto lic 80-89. Hypertension High Risk: Systolic >/= 140 and Diastolic >/= 90 - For Sedentary Lifestyle Sedentary Lifestyle Risk Guidelines: Sedentary Lifestyle Low Risk: >/= 1,500 kcal/week. Sedentary Lifestyle Moderate Risk: 700-1,499 kcal/week. Sedentary Lifestyle High Risk: < 700 kcal/week - For Depression Depression Risk Guidelines: Depression Low Risk: Not clinically depressed. Depression Moderate Risk: Mildly depressed. Depression High Risk: Clinically depressed - Family History Family History: Family History (Last Reviewed 06/25/20 @ 12:[address] Jatin Ballesteros MD) Mother Seizures CVA (cerebral vascular accident) Father CVA (cerebral vascular accident) Sister CAD (coronary artery disease) AAA (abdominal aortic aneurysm) Addiction Motivation - Motivation to Participate On a scale of 1 to 10, how prepared are you to commit to attending program?: 10 What do you see as barriers to successfully being able to complete the program?: none What do you see as the benefits of succesfully completing the program? In other words, what do you hope to get out of participating in the program?: improved health Are there issues you are dealing with that will interfere with completing the program?: none Do you have a spouse or signficant other, family or friends who will help support you to complete the program?: spouse
--- NOTE | 2020-07-18 12:48 | CR.ITP_ITS ---
Diagnosis - General Information Admitting Diagnosis: Z95.5 PCI with stent Personal Learning Style:: Audio/Visual Barriers to Learning: Vision Impairment Stage of change r/t lifestyle modifications:: Contemplation Gave educational material for:: Treating Heart Disease, Emotions & Heart Disease, Stress Management & Relaxation, Sleep Disorders & Heart Disease, How The Heart Works, What it means to have Heart Disease, How Coronary Artery Disease is Diagnosed, Heart Procedures, What Heart Medications Do, Risk Factors & Modifications, Living an Active Life, Nutrition - Education/Goals Cardiac Rehabilitation Goals: 1. Maintain the individual as the primary focus of care. 2. To improve the patient's quality of life. 3. Identification of cardiac risk factors and provide cardiac risk factor management. 4. Enhance the psychosocial status of the patient. 5. Reconditioning enough to allow the patient to resume customary activities. 6. Control symptoms of cardiac disease Personal Goals: Initial Assessment: Improve energy level, Participate in home exercise program, Get back to work, or to resume activities faster, Improve muscle strength and endurance Scale for measuring improvement of personal goals: Enter appropriate number in Comments. 2 = Unchanged. 3 = Slightly Better. 4 = Moderate Improvement. 5 = Met my Goal - Diagnosis & Disease Process Outcomes/Goals: Pt IDs own risk factors & lifestyle modifications by Session 10, Verbalizes symptoms of angina & response by session 3., Pt independently manages, Other Additional Outcomes/Goals: Plan/Interventions: Assist Pt to ID & engage in lifestyle modification to reduce CVD risk, Instruct on individual risk factors, Review symptoms of angina & emergency actions, Review secondary diagnosis & identify educational needs., Other see comment 30 day Reassessments:: Not Met 30 day Reassessments:: Not Met 30 day Reassessments:: Not Met 30 day Reassessments:: Not Met Final Reassessments:: Not Met - Safety Referral to Physical Therapy: No Referral to [facility] Case Management: No Fall Risk Assessed:: Yes Assistive Devices:: None Exercise - Initial Assessment - Visit Date of Eval: 07/18/20 - initial eval - Physician Prescribed Exercise Modalities: Treadmill, Biodyne, Rower, Airdyne, NuStep, SciFit Frequency: 3x/week for 12 weeks [36 sessions] Intensity: 60-80% of age predicted maximum heart rate reserve Current METSs:: 3.0 Target Heart Rate:: 99-129 Resting Blood Pressure: 124/80 EKG Type: NSR - Outcomes & Goals Goals:: Verbalizes understanding of THR, RPE & goal METS by session 6, Documents in home exercise log/reports 30 min aerobic 5 day/wk by DC, Demonstrates accurate pulse taking by DC, Other additional outcome/goals: see below - Intervention & Plan Exercise Program Goals: Instruct on personal THR & RPE, Instruct on MET level & personal MET goal, Show patient to take own pulse /validate performance until accurate, Instruct on home exercise, Other additional plan/int - Physical Activity Home Exercise Physical Activity - Home Exercise: Safe Exercise, Warm-up, Self-monitoring, Cool-Down, Home Exercise > 30 min Daily, Sitting Time <3 hours/daily - Outcomes & Goals Outcomes/Goals: Demonstrates correct Warm-up/exercise Cool-Down (S3) if = 2.5 METs, Verbalizes symptoms of exercise intolerance by Session 3 (S3), Demonstrate safe equipment use (S3) & follows exercise prescrition (6), Other: See below - Intervention & Plan Plan/Intervention: Instruct warm-up & cool-down if exercising at > 2 METs, Instruct on symptoms of exercise intolerance & actions to take, Instruct & monitor on saf, Assess intial functional capacity & safety risk, Other See below Nutrition - Initial Assessment - Program Goals Nutrition Program Goals: LDL <100 optimal. 100 - 129 Near optimal. 130 - 159 Borderline High. 160 - 189 High. Total Cholesterol <200 desirable. 200 - 239 Borderline High. >/= 240 High. HDL < 40 Low >/=60 High. Triglycerides <150 desirable. <199 optimal. VlDL 5 - 40. HgbA1C <7%. BMI <25 Patient has diagnosis of Hyperlipidemia (ICD E78)?: Yes - Visit Date of Assessment:: 07/18/20 - initial eval - Cholesterol/Lipids Determine presence & major risk factors that modify LDL goal: Hypertension or hypertensive medication Outcomes/Goals: Pt IDs own risk factors & lifestyle modifications by Session 10, Verbalizes symptoms of angina & response by session 3., Pt independently manages, Other Additional Outcomes/Goals: Intervention/Plan: Advocate for lipid panel cholesterol medication if applicable, Instruct on personal lipid levels & lipid goals/NCEP guidelines, Instruct on cholesterol, Other additional plan/int Referral to dietitian:: No - Diabetes (Other Core Measures) Diabetes Type: Not Applicable - Weight Mgt (Other Care) Height: 5 ft 5 in Weight:: 58.967 kg BMI: 21.6 Outcomes/Goals: Pt sets, maintains & shows weight loss goal & trend during rehab, Other additional outcomes/goals Intervention/Plan: Instruct on ideal BMI & set weight loss goal w/patient, Assist pt to ID & incorporate diet changes for weight loss by S9, Refer to Structured Weight Loss program as appropriate, Encourage goal of using 250- 300dcal per session for weight loss, Other additional plan/interventions - Healthy Eating Habits Will attend diet classes:: Yes Outcomes/Goals:: Consume diet rich in vegs,fruits,whole grain/high fiber,fish,lean meat, Limit sat/trans fats,cholesterol & added salts & sugars, Other additional outcome/goals: Intervention/Plan:: Assess current eating habits, Other Additional plan/interventions - Education Gave educational materials for:: Signs & symptoms of hypoglycemia, Signs & symptoms of hyperglycemia, Relate diabetes to coronary artery disease, Healthy eating Medical - Initial Assessment - Visit Date of Eval: 07/18/20 - initial eval - Medication Compliance H/O mental health issues: depression, anxiety, or addiction?: No Doesn?t believe in the benefits of treatment?: No Believes medications are unnecessary or harmful?: No Has a concern about medication side effects?: Yes - brilinta Expresses concern over the cost of medications?: No Outcomes/Goals: Verbalizes medications,desired effect & common side effects @ DC, Pt self-reports following medication regimen, Keeps card in wallet w/medications listed by DC, Other additional outcome/goals: Interventions/plans: Instruct on medication effects & side effects, Review medication list w/patient every two weeks, Instruct importance of taking meds as ordered & assist problem solving, Other additional - Tobacco Use How long ago did you quit using tobacco products?: Greater than or equal to 6 months ago - quit 45 years ago Do you use smokeless tobacco?: No - Hypertension Hypertension Diagnosis:: Hypertension ICD-10 I10 [place] [employer] Hypertension Guidelines: [place] [employer] Hypertension Guidelines. Normal BP Less than 120/80. Elevated BP 120/80. Hypertension Stage 1: BP 130-139/80-89. Hypertesnion Stage 2: BP 140 or higher/90 or higher. Hypertension Crisis: BP higher than 180/120 Outcomes/Goals: Able to verbalize/achieve optimal blood pressure <130/80, Incorporates diet changes & exercise for blood pressure control by DC, Other additional outcomes/goals Interventions/plan: Instruct on optimal blood pressure, hypertension & medications, Instruct on effects of sodium, alcohol, stress, exercise &hypertension, Other additional plan/interventions - Tobacco Cessation Referral Smoking Cessation Referral:: No Individual Education/Counseling:: No Education Schedule Given:: Yes Psychosocial - Initial Assess - VIsit Date of Eval: 07/18/20 - initial eval History of previous Mental disease:: No - Target Goals Target Goals: Assess presence or absence of depression. Using a valid screening tool, maximizes coping skills. Positive support system - Psychosocial Test Tool Used:: [employer] QOL Cardiac, PHQ-9 Questionnaire phq-9 Severity: Severity. 1-4 Minimal Depression. 5-9 Mild Depression. 10-14 Moderate Depression. 15-19 Moderately Sever Depression. 20-27 Severe Depression. Rule: See PHQ-9 Score: 4 - Referral to Behavioral Health PS - Interventions: Yes Referral to Behavioral Health if PHQ-9 score >9:, Yes Referral to Physician if PHQ-9 if score is 5-9:, Yes Attend Stress Management Classes, No Referral to [facility] - Outcomes/Goals: See list Psychosocial Outcomes/Goals:: ID's personal stressors & 2 strategies to manage stress by discharge, Other Additional outcome/goals: - Intervention/Plan: See List Interventions/Plan:: Assess stressors,coping strategies & signs of derpression on admission, Instruct/assist pt to develop coping & personal stress Mgt strategies, Refer to Behavioral Health if appropriate, Refer to Physician if appropriate, Instruct patient to recognize signs & symptoms of depression, Instruct patient to recog, Other additional plan/intervention Patient Health Questionnaire Initial Assessment 1. Little interest or pleasure in doing things: Not at all 2. Feeling down, depressed, or hopeless: Not at all 3. Trouble falling or staying asleep, or sleeping too much: More than half the days 4. Feeling tired or having little energy: More than half the days 5. Poor appetite or overeating: Not at all 6. Feeling bad about yourself -- or that you are a failure or have let yourself or your family down: Not at all 7. Trouble concentrating on things, such as reading the newspaper or watching television: Not at all 8. Moving or speaking so slowly that other people could have noticed. Or the opposite - being so fidgety or restless that you have been moving around a lot more than usual: Not at all 9. Thoughts that you would be better off , or of hurting yourself in some way: Not at all How difficult have these problems made it for you to do your work, take care of things at home, or get along with other people?: Somewhat difficult Total Score: 4 BORIS-Q SV Test - Statements CAD is a disease of the arteries in the heart: False Examples of risk factors for heart disease: True Angina is chest pain or discomfort: True The benefits of resistance training include: True Eating more meat and dairy products: False Anti-platelet medications such as aspirin are important: True The only effective way to manage stress: False An exercise warm-up slowly increases heart rate: True Prepared, processed foods usually have high sodium: True Depression is common after a heart attack: True The statin medications lower cholesterol: True To control blood pressure, lower the amount of sodium: True If someone gets chest discomfort during walking: False Transfats are partially hydrogenated vegetable oils: True Sleep apnea that is not treated increases the risk: False To control cholesterol, one should become a vegetarian: False Someone knows if he/she is exercising at the right level: False Diabetes cannot be prevented with exercise & health eating: True Stress is a large risk for heart attack: True A diet that can help lower blood pressure is rich in: True - Total Score Total Correct Responses: 18 Self-Efficacy Initial Assessment We would like to know how confident you are in doing certain activities. Please select your confidence level for:: Select your confidence level for the following using the scale 1-10 where 1 is not at all confident and 10 is totally confident. Your score is the average of all 6 responses. Fatigue: How confident are you that you can keep the fatigue caused by your disease from interfering with the things you want to do? Select Number: 9 Physical Discomfort or Pain: How confident are you that you can keep the physical discomfort or pain of your disease from interfering with the things you want to do? Select Number: 9 Emotional Distress: How confident are you that you can keep the emotional distress caused by your disease from interfering with the things you want to do? Select Number: 10 Other Symptoms or Health Problems: How confident are you that you can keep other symptoms or health problems from interfering with the things you want to do? Select Number: 9 Different Tasks and Activities: How confident are you that you can do the different tasks and activities needed to manage your health condition so as to reduce your need to see a doctor? Select Number: 10 Medication: How confident are you that you can do things other than just taking medication to reduce how much your illness affects your everyday life? Nutrition Survey - Nutrition Survey Instructions Scoring Instructions: Scoring is as follows: Yes = 1 points. No = 0 point. Patient score that is >/=12 is considered to be at potential nutritional risk and could benefit from a referral to a registered dietitian. - Nutrition Survey Initial Have you lost >10 lbs over the past 2 months without trying?: No Are you following a special diet at home for diabetes, low fat, or low salt?: Yes Are you interested in meeting with a dietitian for help understanding your diet?: No Do you eat less than 3 meals a day?: No Do you eat fatty meats (fernandez, sausage, ribs, etc), fried foods, desserts, large amounts of salad dressings, margarine, butter, or cheese most days?: No Do you have food allergies? [Enter types in comment field]: No Do you eat in restaurants more than 3 times a week?: No Do you season food with salt, seasoning salt, or garlic salt?: Yes Do you used canned, boxed, frozen meals, or soups, seasoning packets?: Yes Total Score:: 3
[2020-07-18 14:13] VITALS: BP 124/80; PULSE 66; O2SAT 98; BMI 21.6
[2020-07-18 14:14] VITALS: BP 124/80; BMI 21.6
== END ==
PROVIDERS: PCP Student in an Organized Health Care Education/Training Program; Referring Provider Specialist; Visit Provider Specialist
DX: Z95.5 Presence of coronary angioplasty implant and graft (principal)

== ENCOUNTER → 2020-07-25 14:39 | Outpatient (CLI) | payer MEDICARE, OTHER, SELFPAY ==
[2020-07-18 14:13] VITALS: BMI 21.6
[2020-07-18 14:14] VITALS: BMI 21.6
== END ==
PROVIDERS: PCP Student in an Organized Health Care Education/Training Program; Referring Provider Nurse Practitioner Family; Visit Provider Nurse Practitioner Family
DX: S55.101A Unspecified injury of radial artery at forearm level, right arm, initial encounter (principal); R09.89 Other specified symptoms and signs involving the circulatory and respiratory systems; Z95.5 Presence of coronary angioplasty implant and graft; I25.10 Atherosclerotic heart disease of native coronary artery without angina pectoris; E78.5 Hyperlipidemia, unspecified; I34.0 Nonrheumatic mitral (valve) insufficiency; I11.9 Hypertensive heart disease without heart failure
CPT/HCPCS: 93798; 93931

== ENCOUNTER 2020-08-20 10:15 | Outpatient (RCR) | payer MEDICARE, OTHER, SELFPAY ==
[2020-07-18 14:13] VITALS: BMI 21.6
[2020-07-18 14:14] VITALS: BMI 21.6
== END 2020-08-20 23:59 ==
LOC: CR 10:15
PROVIDERS: PCP Student in an Organized Health Care Education/Training Program; Referring Provider Specialist; Visit Provider Specialist
DX: I25.10 Atherosclerotic heart disease of native coronary artery without angina pectoris (principal); E78.5 Hyperlipidemia, unspecified; Z95.5 Presence of coronary angioplasty implant and graft; I34.0 Nonrheumatic mitral (valve) insufficiency; I11.9 Hypertensive heart disease without heart failure
CPT/HCPCS: 93798

== ENCOUNTER 2020-09-10 10:15 | Outpatient (RCR) | payer MEDICARE, OTHER, SELFPAY ==
[2020-07-18 14:13] VITALS: BMI 21.6
[2020-07-18 14:14] VITALS: BMI 21.6
--- NOTE | 2020-08-22 13:15 | CR.ITP_ITS ---
Diagnosis - General Information Admitting Diagnosis: PCI with Stent - Education/Goals Cardiac Rehabilitation Goals: 1. Maintain the individual as the primary focus of care. 2. To improve the patient's quality of life. 3. Identification of cardiac risk factors and provide cardiac risk factor management. 4. Enhance the psychosocial status of the patient. 5. Reconditioning enough to allow the patient to resume customary activities. 6. Control symptoms of cardiac disease Scale for measuring improvement of personal goals: Enter appropriate number in Comments. 2 = Unchanged. 3 = Slightly Better. 4 = Moderate Improvement. 5 = Met my Goal Exercise - 30-day Assessment - Visit Date of Eval: 08/22/20 Session #:: 9 - Physician Prescribed Exercise Modalities: Treadmill, Rower, NuStep Frequency: 3x/week for 12 weeks [36 sessions] Intensity: 60-80% of age predicted maximum heart rate reserve Target Heart Rate:: 99-129 Current RPE:: 11-12 Maximum Excercise HR:: 133 Resting Blood Pressure: 124/70 Maximum Exercise Blood Pressure: 142/68 EKG Type: sinus vipul - Outcomes & Goals Goals:: Verbalizes understanding of THR, RPE & goal METS by session 6, Documents in home exercise log/reports 30 min aerobic 5 day/wk by DC, Demonstrates accurate pulse taking by DC, Other additional outcome/goals: see below - Intervention & Plan Exercise Program Goals: Instruct on personal THR & RPE, Instruct on MET level & personal MET goal, Show patient to take own pulse /validate performance until accurate, Instruct on home exercise, Other additional plan/int - 30-day Reassessments 30 day Reassessments:: Progressing - Physical Activity Home Exercise Physical Activity - Home Exercise: Safe Exercise, Warm-up, Self-monitoring, Cool-Down, Home Exercise > 30 min Daily, Sitting Time <3 hours/daily - Outcomes & Goals Outcomes/Goals: Demonstrates correct Warm-up/exercise Cool-Down (S3) if = 2.5 METs, Verbalizes symptoms of exercise intolerance by Session 3 (S3), Demonstrate safe equipment use (S3) & follows exercise prescrition (6), Other: See below - Intervention & Plan Plan/Intervention: Instruct warm-up & cool-down if exercising at > 2 METs, Instruct on symptoms of exercise intolerance & actions to take, Instruct & monitor on saf, Assess intial functional capacity & safety risk, Other See below - 30-day Reassessments 30 day Reassessments:: Progressing Nutrition - 30-Day Assessment - Program Goals Nutrition Program Goals: LDL <100 optimal. 100 - 129 Near optimal. 130 - 159 Borderline High. 160 - 189 High. Total Cholesterol <200 desirable. 200 - 239 Borderline High. >/= 240 High. HDL < 40 Low >/=60 High. Triglycerides <150 desirable. <199 optimal. VlDL 5 - 40. HgbA1C <7%. BMI <25 Patient has diagnosis of Hyperlipidemia (ICD E78)?: Yes - Visit Date of Assessment:: 08/22/20 Session #:: 9 - Cholesterol/Lipids Outcomes/Goals: Pt IDs own risk factors & lifestyle modifications by Session 10, Verbalizes symptoms of angina & response by session 3., Pt independently manages, Other Additional Outcomes/Goals: Intervention/Plan: Advocate for lipid panel cholesterol medication if applicable, Instruct on personal lipid levels & lipid goals/NCEP guidelines, Instruct on cholesterol, Other additional plan/int Referral to dietitian:: No 30-day Reassessments:: Progressing - Weight Mgt (Other Care) Height: 5 ft 5 in Weight:: 59.647 kg BMI: 21.9 Diagnosis Overweight/Obesity BMI> 30% ICD-10 E66: No Diagnosis High BMI/Morbid Obesity BMI> 35% ICD-10 Z68: No Outcomes/Goals: Pt sets, maintains & shows weight loss goal & trend during rehab, Other additional outcomes/goals Intervention/Plan: Instruct on ideal BMI & set weight loss goal w/patient, Assist pt to ID & incorporate diet changes for weight loss by S9, Refer to Structured Weight Loss program as appropriate, Encourage goal of using 250- 300dcal per session for weight loss, Other additional plan/interventions 30 day Reassessments:: Progressing - Healthy Eating Habits Will attend diet classes:: Yes Outcomes/Goals:: Consume diet rich in vegs,fruits,whole grain/high fiber,fish,lean meat, Limit sat/trans fats,cholesterol & added salts & sugars, Other additional outcome/goals: Intervention/Plan:: Assess current eating habits, Other Additional plan/interventions 30-day Reassessments:: Progressing Medical- 30-Day Assessment - Visit Date of Eval: 08/22/20 Session #:: 9 - Medication Compliance H/O mental health issues: depression, anxiety, or addiction?: No Doesn?t believe in the benefits of treatment?: No Believes medications are unnecessary or harmful?: No Has a concern about medication side effects?: Yes - brilinta Expresses concern over the cost of medications?: No Outcomes/Goals: Verbalizes medications,desired effect & common side effects @ DC, Pt self-reports following medication regimen, Keeps card in wallet w/ medications listed by DC, Other additional outcome/goals: Interventions/plans: Instruct on medication effects & side effects, Review medication list w/patient every two weeks, Instruct importance of taking meds as ordered & assist problem solving, Other additional 30-day Reassessments:: Progressing - Tobacco Use Tobacco Use: Non-smoker How long ago did you quit using tobacco products?: Greater than or equal to 6 months ago 30-day Reassessments:: Progressing - Hypertension Hypertension Diagnosis:: Hypertension ICD-10 I10 Resting Blood Pressure:: 124/70 [place] [employer] Hypertension Guidelines: [place] [employer] Hypertension Guidelines. Normal BP Less than 120/80. Elevated BP 120/80. Hypertension Stage 1: BP 130-139/80-89. Hypertesnion Stage 2: BP 140 or higher/90 or higher. Hypertension Crisis: BP higher than 180/120 Outcomes/Goals: Able to verbalize/achieve optimal blood pressure <130/80, Incorporates diet changes & exercise for blood pressure control by DC, Other additional outcomes/goals Interventions/plan: Instruct on optimal blood pressure, hypertension & medications, Instruct on effects of sodium, alcohol, stress, exercise &hypertension, Other additional plan/interventions 30 day Reassessments:: Progressing - Tobacco Cessation Referral Smoking Cessation Referral:: No Individual Education/Counseling:: No Education Schedule Given:: Yes Psychosocial - 30-Day Assess - VIsit Date of Eval: 08/22/20 Session #:: 9 History of previous Mental disease:: No - Target Goals Target Goals: Assess presence or absence of depression. Using a valid screening tool, maximizes coping skills. Positive support system - Psychosocial Test Tool Used:: [employer] QOL Cardiac, PHQ-9 Questionnaire phq-9 Severity: Severity. 1-4 Minimal Depression. 5-9 Mild Depression. 10-14 Moderate Depression. 15-19 Moderately Sever Depression. 20-27 Severe Depression. Rule: - Outcomes/Goals: See list Psychosocial Outcomes/Goals:: ID's personal stressors & 2 strategies to manage stress by discharge, Other Additional outcome/goals: - Intervention/Plan: See List Interventions/Plan:: Assess stressors,coping strategies & signs of derpression on admission, Instruct/assist pt to develop coping & personal stress Mgt strategies, Refer to Behavioral Health if appropriate, Refer to Physician if appropriate, Instruct patient to recognize signs & symptoms of depression, Instruct patient to recog, Other additional plan/intervention - 30-day Reassessments: 30 day Reassessments:: Progressing Patient Health Questionnaire 30-Day Re-eval Assessment 1. Little interest or pleasure in doing things: Not at all 2. Feeling down, depressed, or hopeless: Not at all 3. Trouble falling or staying asleep, or sleeping too much: More than half the days 4. Feeling tired or having little energy: More than half the days 5. Poor appetite or overeating: Not at all 6. Feeling bad about yourself -- or that you are a failure or have let yourself or your family down: Not at all 7. Trouble concentrating on things, such as reading the newspaper or watching television: Not at all 8. Moving or speaking so slowly that other people could have noticed. Or the opposite - being so fidgety or restless that you have been moving around a lot more than usual: Not at all 9. Thoughts that you would be better off , or of hurting yourself in some way: Not at all How difficult have these problems made it for you to do your work, take care of things at home, or get along with other people?: Somewhat difficult Total Score: 4 Self-Efficacy 30-Day Re-eval Assessment We would like to know how confident you are in doing certain activities. Please select your confidence level for:: Select your confidence level for the following using the scale 1-10 where 1 is not at all confident and 10 is totally confident. Your score is the average of all 6 responses. Fatigue: How confident are you that you can keep the fatigue caused by your disease from interfering with the things you want to do? Select Number: 9 Physical Discomfort or Pain: How confident are you that you can keep the physical discomfort or pain of your disease from interfering with the things you want to do? Select Number: 9 Emotional Distress: How confident are you that you can keep the emotional distress caused by your disease from interfering with the things you want to do? Select Number: 10 Other Symptoms or Health Problems: How confident are you that you can keep other symptoms or health problems from interfering with the things you want to do? Select Number: 9 Different Tasks and Activities: How confident are you that you can do the different tasks and activities needed to manage your health condition so as to reduce your need to see a doctor? Select Number: 10 Medication: How confident are you that you can do things other than just taking medication to reduce how much your illness affects your everyday life? Select Number: 10 Total Score:: 9
[2020-08-22 13:26] VITALS: BP 124/70; BMI 21.9
--- NOTE | 2020-09-17 07:16 | CR.ITP_ITS ---
Exercise - 60-day Assessment - Visit Date of Eval: 09/17/20 Session #:: 16 - Physician Prescribed Exercise Modalities: Treadmill, Rower, NuStep Frequency: 3x/week for 12 weeks [36 sessions] Intensity: 60-80% of age predicted maximum heart rate reserve Current METSs:: 6.9 Target Heart Rate:: 99-129 Current RPE:: 12 Maximum Excercise HR:: 136 Resting Blood Pressure: 106/58 Maximum Exercise Blood Pressure: 162/82 EKG Type: SB to sinus tachy - Outcomes & Goals Goals:: Verbalizes understanding of THR, RPE & goal METS by session 6, Documents in home exercise log/reports 30 min aerobic 5 day/wk by DC, Demonstrates accurate pulse taking by DC, Other additional outcome/goals: see below - Intervention & Plan Exercise Program Goals: Instruct on personal THR & RPE, Instruct on MET level & personal MET goal, Show patient to take own pulse /validate performance until accurate, Instruct on home exercise, Other additional plan/int - 30-day Reassessments 30 day Reassessments:: Progressing - Physical Activity Home Exercise Physical Activity - Home Exercise: Safe Exercise, Warm-up, Self-monitoring, Cool-Down, Home Exercise > 30 min Daily, Sitting Time <3 hours/daily - Outcomes & Goals Outcomes/Goals: Demonstrates correct Warm-up/exercise Cool-Down (S3) if = 2.5 METs, Verbalizes symptoms of exercise intolerance by Session 3 (S3), Demonstrate safe equipment use (S3) & follows exercise prescrition (6), Other: See below - Intervention & Plan Plan/Intervention: Instruct warm-up & cool-down if exercising at > 2 METs, Instruct on symptoms of exercise intolerance & actions to take, Instruct & beatrice tor on saf, Assess intial functional capacity & safety risk, Other See below - 30-day Reassessments 30 day Reassessments:: Progressing Nutrition - 60-Day Assessment - Program Goals Nutrition Program Goals: LDL <100 optimal. 100 - 129 Near optimal. 130 - 159 Borderline High. 160 - 189 High. Total Cholesterol <200 desirable. 200 - 239 Borderline High. >/= 240 High. HDL < 40 Low >/=60 High. Triglycerides <150 desirable. <199 optimal. VlDL 5 - 40. HgbA1C <7%. BMI <25 - Visit Date of Assessment:: 09/17/20 Session #:: 16 - Cholesterol/Lipids Determine presence & major risk factors that modify LDL goal: Hypertension or hypertensive medication, Low HDL cholesterol <40 mg/dL*, Family history of premature CHD in Male < 55 years: female <65 yearsFa, Age men > 45 years; women >/= 55 years Outcomes/Goals: Pt IDs own risk factors & lifestyle modifications by Session 10, Verbalizes symptoms of angina & response by session 3., Pt independently manages, Other Additional Outcomes/Goals: Intervention/Plan: Advocate for lipid panel cholesterol medication if applicable, Instruct on personal lipid levels & lipid goals/NCEP guidelines, Instruct on cholesterol, Other additional plan/int 30-day Reassessments:: Progressing - Diabetes (Other Core Measures) Diabetes Type: Not Applicable - Weight Mgt (Other Care) Height: 5 ft 5 in Weight:: 60.101 kg BMI: 22.0 Outcomes/Goals: Pt sets, maintains & shows weight loss goal & trend during rehab, Other additional outcomes/goals Intervention/Plan: Instruct on ideal BMI & set weight loss goal w/patient, Assist pt to ID & incorporate diet changes for weight loss by S9, Refer to Structured Weight Loss program as appropriate, Encourage goal of using 250- 300dcal per session for weight loss, Other additional plan/interventions 30 day Reassessments:: Progressing - Healthy Eating Habits Will attend diet classes:: Yes Outcomes/Goals:: Consume diet rich in vegs,fruits,whole grain/high fiber,fish,lean meat, Limit sat/trans fats,cholesterol & added salts & sugars, Other additional outcome/goals: Intervention/Plan:: Assess current eating habits, Other Additional plan/interventions 30-day Reassessments:: Progressing - Education Gave educational materials for:: Signs & symptoms of hypoglycemia, Signs & symptoms of hyperglycemia, Relate diabetes to coronary artery disease, Healthy eating Medical- 60-Day Assessment - Visit Date of Eval: 09/17/20 Session #:: 16 - Medication Compliance H/O mental health issues: depression, anxiety, or addiction?: No Doesn?t believe in the benefits of treatment?: No Believes medications are unnecessary or harmful?: No Has a concern about medication side effects?: Yes - [place]il[place] Expresses concern over the cost of medications?: No Outcomes/Goals: Verbalizes medications,desired effect & common side effects @ DC, Pt self-reports following medication regimen, Keeps card in wallet w/medications listed by DC, Other additional outcome/goals: Interventions/plans: Instruct on medication effects & side effects, Review medication list w/patient every two weeks, Instruct importance of taking meds as ordered & assist problem solving, Other additional 30-day Reassessments:: Progressing - Tobacco Use Tobacco Use: Non-smoker Do you use smokeless tobacco?: No - Hypertension Hypertension Diagnosis:: Hypertension ICD-10 I10 Resting Blood Pressure:: 106/58 [place] [employer] Hypertension Guidelines: [place] [employer] Hypertension Guidelines. Normal BP Less than 120/80. Elevated BP 120/80. Hypertension Stage 1: BP 130-139/80-89. Hypertesnion Stage 2: BP 140 or higher/90 or higher. Hypertension Crisis: BP higher than 180/120 Peak Exercise Blood Pressure:: 162/82 Outcomes/Goals: Able to verbalize/achieve optimal blood pressure <130/80, Incorporates diet changes & exercise for blood pressure control by DC, Other additional outcomes/goals Interventions/plan: Instruct on optimal blood pressure, hypertension & medications, Instruct on effects of sodium, alcohol, stress, exercise &hypertension, Other additional plan/interventions 30 day Reassessments:: Progressing - Tobacco Cessation Referral Smoking Cessation Referral:: No Individual Education/Counseling:: No Education Schedule Given:: Yes Psychosocial - 60-Day Assess - VIsit Date of Eval: 09/17/20 Session #:: 16 History of previous Mental disease:: No - Target Goals Target Goals: Assess presence or absence of depression. Using a valid screening tool, maximizes coping skills. Positive support system - Psychosocial Test phq-9 Severity: Severity. 1-4 Minimal Depression. 5-9 Mild Depression. 10-14 Moderate Depression. 15-19 Moderately Sever Depression. 20-27 Severe Depression. Rule: - Outcomes/Goals: See list Psychosocial Outcomes/Goals:: ID's personal stressors & 2 strategies to manage stress by discharge, Other Additional outcome/goals: - Intervention/Plan: See List Interventions/Plan:: Assess stressors,coping strategies & signs of derpression on admission, Instruct/assist pt to develop coping & personal stress Mgt strategies, Refer to Behavioral Health if appropriate, Refer to Physician if appropriate, Instruct patient to recognize signs & symptoms of depression, Instruct patient to recog, Other additional plan/intervention - 30-day Reassessments: 30 day Reassessments:: Progressing Patient Health Questionnaire 60-Day Re-eval Assessment 1. Little interest or pleasure in doing things: Not at all 2. Feeling down, depressed, or hopeless: More than half the days 3. Trouble falling or staying asleep, or sleeping too much: More than half the days 4. Feeling tired or having little energy: Not at all 5. Poor appetite or overeating: Not at all 6. Feeling bad about yourself -- or that you are a failure or have let yourself or your family down: Not at all 7. Trouble concentrating on things, such as reading the newspaper or watching television: Not at all 8. Moving or speaking so slowly that other people could have noticed. Or the opposite - being so fidgety or restless that you have been moving around a lot more than usual: Not at all 9. Thoughts that you would be better off , or of hurting yourself in some way: Not at all How difficult have these problems made it for you to do your work, take care of things at home, or get along with other people?: Somewhat difficult Total Score: 4 Self-Efficacy 60-Day Re-eval Assessment We would like to know how confident you are in doing certain activities. Please select your confidence level for:: Select your confidence level for the following using the scale 1-10 where 1 is not at all confident and 10 is totally confident. Your score is the average of all 6 responses. Fatigue: How confident are you that you can keep the fatigue caused by your disease from interfering with the things you want to do? Select Number: 9 Physical Discomfort or Pain: How confident are you that you can keep the physical discomfort or pain of your disease from interfering with the things you want to do? Select Number: 9 Emotional Distress: How confident are you that you can keep the emotional distress caused by your disease from interfering with the things you want to do? Select Number: 10 Other Symptoms or Health Problems: How confident are you that you can keep other symptoms or health problems from interfering with the things you want to do? Select Number: 9 Different Tasks and Activities: How confident are you that you can do the different tasks and activities needed to manage your health condition so as to reduce your need to see a doctor? Select Number: 10 Medication: How confident are you that you can do things other than just taking medication to reduce how much your illness affects your everyday life? Select Number: 10 Total Score:: 9
[2020-09-17 07:24] VITALS: BP 106/58; BP 162/82; BMI 22.0
== END 2020-09-20 23:59 ==
LOC: CR 10:15
PROVIDERS: PCP Student in an Organized Health Care Education/Training Program; Referring Provider Specialist; Visit Provider Specialist
DX: I25.10 Atherosclerotic heart disease of native coronary artery without angina pectoris (principal); I11.9 Hypertensive heart disease without heart failure; I34.0 Nonrheumatic mitral (valve) insufficiency; E78.5 Hyperlipidemia, unspecified; Z95.5 Presence of coronary angioplasty implant and graft
CPT/HCPCS: 93798

== ENCOUNTER 2020-10-17 09:15 | Outpatient (RCR) | payer MEDICARE, OTHER, SELFPAY ==
[2020-09-21 00:11] VITALS: BP 106/58; BP 162/82
--- NOTE | 2020-10-17 07:12 | CR.ITP_ITS ---
Exercise - 90-day Assessment - Visit Date of Eval: 10/17/20 Session #:: 25 - Physician Prescribed Exercise Modalities: Treadmill, Rower, NuStep Frequency: 3x/week for 12 weeks [36 sessions] Intensity: 60-80% of age predicted maximum heart rate reserve Current METSs:: 7.0 Target Heart Rate:: 99-129 Current RPE:: 12-13 Maximum Excercise HR:: 129 Resting Blood Pressure: 118/68 Maximum Exercise Blood Pressure: 144/74 EKG Type: Sinus bradycardia to sinus tachycardia with rare PACs. - Outcomes & Goals Goals:: Verbalizes understanding of THR, RPE & goal METS by session 6, Documents in home exercise log/reports 30 min aerobic 5 day/wk by DC, Demonstrates accurate pulse taking by DC - Intervention & Plan Exercise Program Goals: Instruct on personal THR & RPE, Instruct on MET level & personal MET goal, Show patient to take own pulse /validate performance until accurate, Instruct on home exercise - 30-day Reassessments 30 day Reassessments:: Met - Physical Activity Home Exercise Physical Activity - Home Exercise: Safe Exercise, Warm-up, Self-monitoring, Cool-Down, Home Exercise > 30 min Daily, Sitting Time <3 hours/daily - Outcomes & Goals Outcomes/Goals: Demonstrates correct Warm-up/exercise Cool-Down (S3) if = 2.5 METs, Verbalizes symptoms of exercise intolerance by Session 3 (S3), Demonstrate safe equipment use (S3) & follows exercise prescrition (6) - Intervention & Plan Plan/Intervention: Instruct warm-up & cool-down if exercising at > 2 METs, Instruct on symptoms of exercise intolerance & actions to take, Instruct & monitor on saf, Assess intial functional capacity & safety risk - 30-day Reassessments 30 day Reassessments:: Met Nutrition - 90-Day Assessment - Program Goals Nutrition Program Goals: LDL <100 optimal. 100 - 129 Near optimal. 130 - 159 Borderline High. 160 - 189 High. Total Cholesterol <200 desirable. 200 - 239 Borderline High. >/= 240 High. HDL < 40 Low >/=60 High. Triglycerides <150 desirable. <199 optimal. VlDL 5 - 40. HgbA1C <7%. BMI <25 Patient has diagnosis of Hyperlipidemia (ICD E78)?: Yes - Visit Date of Assessment:: 10/17/20 Session #:: 25 - no recent labs - Cholesterol/Lipids Determine presence & major risk factors that modify LDL goal: Hypertension or hypertensive medication, Age men > 45 years; women >/= 55 years Outcomes/Goals: Pt IDs own risk factors & lifestyle modifications by Session 10, Verbalizes symptoms of angina & response by session 3., Pt independently manages Intervention/Plan: Instruct on personal lipid levels & lipid goals/NCEP guidelines, Instruct on cholesterol Referral to dietitian:: No 30-day Reassessments:: Progressing - Diabetes (Other Core Measures) Diabetes Type: Not Applicable - Weight Mgt (Other Care) Not Applicable: Yes Height: 5 ft 5 in Weight:: 132 lb BMI: 21.9 Diagnosis Overweight/Obesity BMI> 30% ICD-10 E66: No Diagnosis High BMI/Morbid Obesity BMI> 35% ICD-10 Z68: No Outcomes/Goals: Pt sets, maintains & shows weight loss goal & trend during rehab Intervention/Plan: Instruct on ideal BMI & set weight loss goal w/patient 30 day Reassessments:: Met - Healthy Eating Habits Will attend diet classes:: Yes Outcomes/Goals:: Consume diet rich in vegs,fruits,whole grain/high fiber,fish,lean meat, Limit sat/trans fats,cholesterol & added salts & sugars Intervention/Plan:: Assess current eating habits 30-day Reassessments:: Met Medical- 90-Day Assessment - Visit Date of Eval: 10/17/20 Session #:: 25 - Medication Compliance Preventative Medication(s):: Aspirin, Clopidogrel/P2Y12 inhibit, Statin/lipid, Beta timur H/O mental health issues: depression, anxiety, or addiction?: No Doesn?t believe in the benefits of treatment?: No Believes medications are unnecessary or harmful?: No Has a concern about medication side effects?: No Expresses concern over the cost of medications?: No Outcomes/Goals: Verbalizes medications,desired effect & common side effects @ DC, Pt self-reports following medication regimen, Keeps card in wallet w/medications listed by DC Interventions/plans: Instruct on medication effects & side effects, Review medication list w/patient every two weeks, Instruct importance of taking meds as ordered & assist problem solving 30-day Reassessments:: Progressing - Tobacco Use Tobacco Use: Non-smoker - Hypertension Hypertension Diagnosis:: Hypertension ICD-10 I10 Resting Blood Pressure:: 118/68 [place] [employer] Hypertension Guidelines: [place] [employer] Hypertension Guidelines. Normal BP Less than 120/80. Elevated BP 120/80. Hypertension Stage 1: BP 130-139/80-89. Hypertesnion Stage 2: BP 140 or higher/90 or higher. Hypertension Crisis: BP higher than 180/120 Peak Exercise Blood Pressure:: 144/74 Outcomes/Goals: Able to verbalize/achieve optimal blood pressure <130/80, Incorporates diet changes & exercise for blood pressure control by DC Interventions/plan: Instruct on optimal blood pressure, hypertension & medications, Instruct on effects of sodium, alcohol, stress, exercise &hypertension 30 day Reassessments:: Met - Tobacco Cessation Referral Smoking Cessation Referral:: No Individual Education/Counseling:: No Education Schedule Given:: Yes Psychosocial - 90-Day Assess - VIsit Date of Eval: 10/17/20 Session #:: 25 Not Applicable: Yes History of previous Mental disease:: No - Target Goals Target Goals: Assess presence or absence of depression. Using a valid screening tool, maximizes coping skills. Positive support system - Psychosocial Test Tool Used:: PHQ-9 Questionnaire phq-9 Severity: Severity. 1-4 Minimal Depression. 5-9 Mild Depression. 10-14 Moderate Depression. 15-19 Moderately Sever Depression. 20-27 Severe Depression. Rule: - Referral to Behavioral Health PS - Interventions: Yes Attend Stress Management Classes, No Referral to Behavioral Health if PHQ-9 score >9:, No Referral to [facility], No Referral to Physician if PHQ-9 if score is 5-9: - Outcomes/Goals: See list Psychosocial Outcomes/Goals:: ID's personal stressors & 2 strategies to manage stress by discharge - Intervention/Plan: See List Interventions/Plan:: Assess stressors,coping strategies & signs of derpression on admission, Instruct/assist pt to develop coping & personal stress Mgt strategies, Instruct patient to recognize signs & symptoms of depression, Instruct patient to recog - 30-day Reassessments: 30 day Reassessments:: Met Patient Health Questionnaire 90-Day Re-eval Assessment 1. Little interest or pleasure in doing things: Not at all 2. Feeling down, depressed, or hopeless: Not at all 3. Trouble falling or staying asleep, or sleeping too much: Not at all 4. Feeling tired or having little energy: Not at all 5. Poor appetite or overeating: Not at all 6. Feeling bad about yourself -- or that you are a failure or have let yourself or your family down: Not at all 7. Trouble concentrating on things, such as reading the newspaper or watching television: Not at all 8. Moving or speaking so slowly that other people could have noticed. Or the opposite - being so fidgety or restless that you have been moving around a lot more than usual: Not at all 9. Thoughts that you would be better off , or of hurting yourself in some way: Not at all Total Score: 0 Self-Efficacy 90-Day Re-eval Assessment We would like to know how confident you are in doing certain activities. Please select your confidence level for:: Select your confidence level for the following using the scale 1-10 where 1 is not at all confident and 10 is totally confident. Your score is the average of all 6 responses. Fatigue: How confident are you that you can keep the fatigue caused by your disease from interfering with the things you want to do? Select Number: 10 Physical Discomfort or Pain: How confident are you that you can keep the physical discomfort or pain of your disease from interfering with the things you want to do? Select Number: 10 Emotional Distress: How confident are you that you can keep the emotional distress caused by your disease from interfering with the things you want to do? Select Number: 10 Other Symptoms or Health Problems: How confident are you that you can keep other symptoms or health problems from interfering with the things you want to do? Select Number: 10 Different Tasks and Activities: How confident are you that you can do the different tasks and activities needed to manage your health condition so as to reduce your need to see a doctor? Select Number: 10 Medication: How confident are you that you can do things other than just taking medication to reduce how much your illness affects your everyday life? Select Number: 10 Total Score:: 10
[2020-10-17 07:17] VITALS: BP 118/68; BP 144/74; BMI 21.9
== END 2020-10-21 23:59 ==
LOC: CR 09:15
PROVIDERS: PCP Student in an Organized Health Care Education/Training Program; Referring Provider Specialist; Visit Provider Specialist
DX: I25.10 Atherosclerotic heart disease of native coronary artery without angina pectoris (principal); I11.9 Hypertensive heart disease without heart failure; I34.0 Nonrheumatic mitral (valve) insufficiency; E78.5 Hyperlipidemia, unspecified; Z95.5 Presence of coronary angioplasty implant and graft
CPT/HCPCS: 93798

== ENCOUNTER → 2020-10-25 06:17 | Outpatient (CLI) | payer MEDICARE, OTHER, SELFPAY ==
[2020-10-17 07:17] VITALS: BMI 21.9
[2020-10-18 16:29] VITALS: BMI 22.1
[2020-10-25 06:39] LABS: Absolute Lymphocyte Count 1.57 X10^3/uL (0.83-4.51); Basophil# 0.05 X10^3/uL; Basophil% 0.9 % (0-1); Eosinophil# 0.08 X10^3/uL; Eosinophils% 1.5 % (0-5); Lymphocyte # 1.57 X10^3/ul (4.0); Lymphocyte % 29.4 % (19-41); Mean Corp Hgb Conc 31.7 g/dL (32-36); Mean Corpuscular Hgb 28.5 pg (27.0-32.0); Mean Corpuscular Volume 89.9 fL (81-99); Mean Platelet Vol. 9.4 fl (6.2-12.0); Monocyte# 0.59 X10^3/uL; NRBC Flagged by Analyzer 0 % (0-5); Neutrophil # 3.04 X10^3/uL (2.7-7.7); Platelet Count 358 K/mm3 (150-450); RBC Distribution Width CV 13.2 % (11.6-14.6); RBC Distribution Width SD 43.6 fl (35.1-43.9); Red Blood Count 4.56 M/mm3 (4.2-5.4); White Blood Count 5.3 K/mm3 (4.4-11.0)
[2020-10-25 07:31] LABS: ALB/GLOB Ratio 1.1 RATIO (0.9-2.4); AST(SGOT) 20 U/L (15-37); Alanine Aminotransfer ALT/SGPT 29 U/L (13-56); Albumin, Serum 4.1 g/dL (3.2-5.0); Alkaline Phosphatase 120 U/L (45-117); Anion Gap 4 (5-15); BUN 12 mg/dL (7-18); BUN/Creat Ratio 15.4 RATIO (10-20); Calcium,Total 9.7 mg/dL (8.5-10.1); Chloride 108 mmol/L (98-107); Cholesterol 178 mg/dL (200); Creatinine, Serum 0.78 mg/dL (0.55-1.02); EST Glomerular Filtration Rate 78 mL/min (>60); Est Glom Filt Rate - Afr Amer 94 mL/min (>60); Globulin 3.7 g/dL (2.2-4.2); Glucose 118 mg/dL (74-106); High Density Lipoprotein 84 mg/dL; Potassium 5.3 mmol/L (3.5-5.1); Protein, Total 7.8 g/dL (6.4-8.2); Sodium Level 138 mmol/L (136-145); Triglycerides 82 mg/dL; Very Low Density Lipoprotein 16 mg/dL (5-40)
[2020-10-25 07:58] LABS: BNP,B-Type NATRIURETIC PEPTIDE 33.2 pg/mL (0-100)
--- NOTE | 2020-10-25 18:27 | STRESSREP ---
Stress Test Report Pharmacologic myocardial perfusion stress test. 70-year-old lady with a history of coronary artery disease presenting with chest discomfort. Stress protocol: Resting KG demonstrates normal sinus rhythm with a rate of 60 bpm normal intervals are noted resting blood pressure is 120/82 mmHg. 0.4 mg of regadenoson was infused per usual protocol followed by Intravenous saline flush injection continuous online merchandiser was performed. Maximum heart rate was 99 bpm which was 65% of maximum predicted heart rate the maximum workload was 1 metabolic equivalent. At rest there were no ST or T wave changes noted suggest abnormal flow reserve. At peak infusion nonspecific ST-T wave changes were noted. The peak blood pressure was 122/78 mmHg. Myocardial perfusion protocol. 11.2 mCi of technetium 99 sestamibi was injected at rest. 0.4 mg of regadenoson was infused per usual protocol. At peak infusion 32.8 mCi of technetium 99m sestamibi was injected stress images were obtained stress and rest images were reconstructed and compared in the short axis vertical long horizontal long axis. Gated images were also obtained Perfusion SPECT analysis: Review of the stress images demonstrate normal uptake of tracer noted in all areas of myocardium the resting images similar demonstrate normal uptake of tracer noted in all areas of myocardium. No reversibility is no suggest ischemia no previous infarct is noted. Gated SPECT analysis: The gated ejection fraction is 82%. Conclusion: Normal pharmacologic myocardial perfusion stress test with no evidence of ischemia. Preserved ejection fraction.
== END ==
PROVIDERS: PCP Student in an Organized Health Care Education/Training Program; Referring Provider Nurse Practitioner Family; Visit Provider Nurse Practitioner Family
DX: I25.10 Atherosclerotic heart disease of native coronary artery without angina pectoris (principal); R06.00 Dyspnea, unspecified; I34.1 Nonrheumatic mitral (valve) prolapse; I10 Essential (primary) hypertension; E78.5 Hyperlipidemia, unspecified; Z95.5 Presence of coronary angioplasty implant and graft
CPT/HCPCS: 36415; 78452; 80053; 80061; 83880; 85025; 93017; A9500; A4216; J2785

== ENCOUNTER 2020-11-09 09:15 | Outpatient (RCR) | payer MEDICARE, OTHER, SELFPAY ==
[2020-10-18 16:29] VITALS: BMI 22.1
[2020-10-22 00:13] VITALS: BP 118/68; BP 144/74
--- NOTE | 2020-11-14 10:03 | CR.ITP_ITS ---
Exercise - Final/Discharge - Visit Date of Eval: 11/14/20 Session #:: 29 Comments:: Patient has missed 16 scheduled sessions over the course of her scheduled appointments. - Physician Prescribed Exercise Modalities: Treadmill, Rower, Airdyne, NuStep Frequency: 3x/week for 12 weeks [36 sessions] Intensity: 60-80% of age predicted maximum heart rate reserve Target Heart Rate:: 99-129 Current RPE:: 11-14 Resting Blood Pressure: 118/68 Maximum Exercise Blood Pressure: 142/82 EKG Type: NSR with a rare PVCs - Outcomes & Goals Goals:: Verbalizes understanding of THR, RPE & goal METS by session 6, Documents in home exercise log/reports 30 min aerobic 5 day/wk by DC, Demonstrates accurate pulse taking by DC - Intervention & Plan Exercise Program Goals: Instruct on personal THR & RPE, Instruct on MET level & personal MET goal, Show patient to take own pulse /validate performance until accurate, Instruct on home exercise - 30-day Reassessments 30 day Reassessments:: Met - Physical Activity Home Exercise Physical Activity - Home Exercise: Safe Exercise, Warm-up, Self-monitoring, Cool-Down, Home Exercise > 30 min Daily, Sitting Time <3 hours/daily - Outcomes & Goals Outcomes/Goals: Demonstrates correct Warm-up/exercise Cool-Down (S3) if = 2.5 METs, Verbalizes symptoms of exercise intolerance by Session 3 (S3), Demonstrate safe equipment use (S3) & follows exercise prescrition (6) - Intervention & Plan Plan/Intervention: Instruct warm-up & cool-down if exercising at > 2 METs, Instruct on symptoms of exercise intolerance & actions to take, Instruct & monitor on saf, Assess intial functional capacity & safety risk - 30-day Reassessments 30 day Reassessments:: Met Nutrition - Final Assessment - Program Goals Nutrition Program Goals: LDL <100 optimal. 100 - 129 Near optimal. 130 - 159 Borderline High. 160 - 189 High. Total Cholesterol <200 desirable. 200 - 239 Borderline High. >/= 240 High. HDL < 40 Low >/=60 High. Triglycerides <150 desirable. <199 optimal. VlDL 5 - 40. HgbA1C <7%. BMI <25 Patient has diagnosis of Hyperlipidemia (ICD E78)?: Yes - Visit Date of Assessment:: 11/14/20 Session #:: 29 - Cholesterol/Lipids Determine presence & major risk factors that modify LDL goal: Hypertension or hypertensive medication, Age men > 45 years; women >/= 55 years Outcomes/Goals: Pt IDs own risk factors & lifestyle modifications by Session 10, Verbalizes symptoms of angina & response by session 3., Pt independently manages Intervention/Plan: Instruct on personal lipid levels & lipid goals/NCEP guidelines, Instruct on cholesterol Referral to dietitian:: No - Diabetes (Other Core Measures) Diabetes Type: Not Applicable - Weight Mgt (Other Care) Not Applicable: Yes Height: 5 ft 5 in Weight:: 131 lb BMI: 21.8 Diagnosis Overweight/Obesity BMI> 30% ICD-10 E66: No Diagnosis High BMI/Morbid Obesity BMI> 35% ICD-10 Z68: No Outcomes/Goals: Pt sets, maintains & shows weight loss goal & trend during rehab Intervention/Plan: Instruct on ideal BMI & set weight loss goal w/patient 30 day Reassessments:: Met - Healthy Eating Habits Will attend diet classes:: Yes Outcomes/Goals:: Consume diet rich in vegs,fruits,whole grain/high fiber,fish,le an meat, Limit sat/trans fats,cholesterol & added salts & sugars Intervention/Plan:: Assess current eating habits 30-day Reassessments:: Met Medical - Final Assessment - Visit Date of Eval: 11/14/20 Session #:: 29 - Medication Compliance Preventative Medication(s):: Aspirin, Clopidogrel/P2Y12 inhibit, Statin/lipid, Beta timur H/O mental health issues: depression, anxiety, or addiction?: No Doesn?t believe in the benefits of treatment?: No Believes medications are unnecessary or harmful?: No Has a concern about medication side effects?: No Expresses concern over the cost of medications?: No Outcomes/Goals: Verbalizes medications,desired effect & common side effects @ DC, Pt self-reports following medication regimen, Keeps card in wallet w/medications listed by DC Interventions/plans: Instruct on medication effects & side effects, Review medication list w/patient every two weeks, Instruct importance of taking meds as ordered & assist problem solving 30-day Reassessments:: Met - Tobacco Use Tobacco Use: Non-smoker - Hypertension Hypertension Diagnosis:: Hypertension ICD-10 I10 Resting Blood Pressure:: 118/68 [place] [employer] Hypertension Guidelines: [place] [employer] Hypertension Guidelines. Normal BP Less than 120/80. Elevated BP 120/80. Hypertension Stage 1: BP 130-139/80-89. Hypertesnion Stage 2: BP 140 or higher/90 or higher. Hypertension Crisis: BP higher than 180/120 Peak Exercise Blood Pressure:: 142/82 Outcomes/Goals: Able to verbalize/achieve optimal blood pressure <130/80, Incorporates diet changes & exercise for blood pressure control by DC Interventions/plan: Instruct on optimal blood pressure, hypertension & medications, Instruct on effects of sodium, alcohol, stress, exercise &hypertension 30 day Reassessments:: Met - Tobacco Cessation Referral Smoking Cessation Referral:: No Individual Education/Counseling:: No Education Schedule Given:: Yes Psychosocial - Final Assessmen - VIsit Date of Eval: 11/14/20 Session #:: 29 Not Applicable: No History of previous Mental disease:: No - Target Goals Target Goals: Assess presence or absence of depression. Using a valid screening tool, maximizes coping skills. Positive support system - Psychosocial Test Tool Used:: PHQ-9 Questionnaire phq-9 Severity: Severity. 1-4 Minimal Depression. 5-9 Mild Depression. 10-14 Moderate Depression. 15-19 Moderately Sever Depression. 20-27 Severe Depression. Rule: - Referral to Behavioral Health PS - Interventions: Yes Attend Stress Management Classes, No Referral to Behavioral Health if PHQ-9 score >9:, No Referral to [facility], No Referral to Physician if PHQ-9 if score is 5-9: - Outcomes/Goals: See list Psychosocial Outcomes/Goals:: ID's personal stressors & 2 strategies to manage stress by discharge - Intervention/Plan: See List Interventions/Plan:: Assess stressors,coping strategies & signs of derpression on admission, Instruct/assist pt to develop coping & personal stress Mgt strategies, Instruct patient to recognize signs & symptoms of depression, Instruct patient to recog - 30-day Reassessments: 30 day Reassessments:: Met Patient Health Questionnaire Discharge Assessment 1. Little interest or pleasure in doing things: Not at all 2. Feeling down, depressed, or hopeless: Not at all 3. Trouble falling or staying asleep, or sleeping too much: Not at all 4. Feeling tired or having little energy: Not at all 5. Poor appetite or overeating: Not at all 6. Feeling bad about yourself -- or that you are a failure or have let yourself or your family down: Not at all 7. Trouble concentrating on things, such as reading the newspaper or watching television: Not at all 8. Moving or speaking so slowly that other people could have noticed. Or the opposite - being so fidgety or restless that you have been moving around a lot more than usual: Not at all 9. Thoughts that you would be better off , or of hurting yourself in some way: Not at all Total Score: 0 Self-Efficacy Discharge Assessment We would like to know how confident you are in doing certain activities. Please select your confidence level for:: Select your confidence level for the following using the scale 1-10 where 1 is not at all confident and 10 is totally confident. Your score is the average of all 6 responses. Fatigue: How confident are you that you can keep the fatigue caused by your disease from interfering with the things you want to do? Select Number: 10 Physical Discomfort or Pain: How confident are you that you can keep the physical discomfort or pain of your disease from interfering with the things you want to do? Select Number: 10 Emotional Distress: How confident are you that you can keep the emotional distress caused by your disease from interfering with the things you want to do? Select Number: 10 Other Symptoms or Health Problems: How confident are you that you can keep other symptoms or health problems from interfering with the things you want to do? Select Number: 10 Different Tasks and Activities: How confident are you that you can do the different tasks and activities needed to manage your health condition so as to reduce your need to see a doctor? Select Number: 10 Medication: How confident are you that you can do things other than just taking medication to reduce how much your illness affects your everyday life? Select Number: 10 Total Score:: 10
[2020-11-14 10:10] VITALS: BP 118/68; BP 142/82; BMI 21.8
== END 2020-11-18 23:59 ==
LOC: CR 09:15
PROVIDERS: PCP Student in an Organized Health Care Education/Training Program; Referring Provider Specialist; Visit Provider Specialist
DX: I25.10 Atherosclerotic heart disease of native coronary artery without angina pectoris (principal); I11.9 Hypertensive heart disease without heart failure; I34.0 Nonrheumatic mitral (valve) insufficiency; E78.5 Hyperlipidemia, unspecified; Z95.5 Presence of coronary angioplasty implant and graft
CPT/HCPCS: 93798

== ENCOUNTER 2020-11-19 06:13 | Outpatient (RCR) | payer MEDICARE, OTHER, SELFPAY ==
[2020-10-18 16:29] VITALS: BMI 22.1
[2020-11-19 00:13] VITALS: BP 118/68; BP 142/82
== END 2020-12-19 23:59 ==
LOC: CR 06:13
PROVIDERS: PCP Student in an Organized Health Care Education/Training Program; Referring Provider Specialist; Visit Provider Specialist
DX: I25.10 Atherosclerotic heart disease of native coronary artery without angina pectoris (principal); I11.9 Hypertensive heart disease without heart failure; I34.0 Nonrheumatic mitral (valve) insufficiency; E78.5 Hyperlipidemia, unspecified; Z95.5 Presence of coronary angioplasty implant and graft
CPT/HCPCS: 93798

== ENCOUNTER → 2020-12-18 13:06 | Outpatient (CLI) | payer MEDICARE, OTHER, SELFPAY ==
[2020-10-18 16:29] VITALS: BMI 22.1
--- NOTE | 2020-12-18 13:09 | BI_ITS ---
MAMMOGRAPHY - UNILATERAL DIAGNOSTIC: LEFT BREAST REASON FOR EXAM: Female, 70 years old. Abnormal screening mammogram. PERTINENT HISTORY: Grandmother with breast cancer. Remote left breast aspiration. TECHNIQUE: 90 degree view of the right breast was obtained. CAD: Full Field Digital Mammography with Computer Added Detection was performed. COMPARISON: Comparison is made with prior mammogram dated 11/24/2019 and outside examination dated 12/13/2020. FINDINGS: Breast Composition: There are scattered areas of fibroglandular density. There are no dominant masses or suspicious calcifications. No other significant abnormalities are identified. There has been no significant change since the prior study. BI/DIAG MAMM W/CAD, UNILAT IMPRESSION: Stable unilateral diagnostic mammogram. Correlation with ultrasound of the right breast is recommended. ASSESSMENT CATEGORY: BIRADS Category 0: Incomplete. Need additional imaging evaluation. A letter regarding these results will be sent to the patient by the facility within 30 days. Approximately 10% of breast cancers are not detected by mammography. A normal mammogram should not delay biopsy of a clinically suspicious abnormality. Electronically Signed: Suleman Soto MD at 13:53 EDT , Service support ,
--- NOTE | 2020-12-18 13:09 | US_ITS ---
STUDY: ULTRASOUND BREAST - RIGHT REASON FOR EXAM: Female, 70 years old. Abnormal screening mammogram. TECHNIQUE: Axial and longitudinal images of the RIGHT breast were performed with a high resolution ultrasound transducer. # OF IMAGES: 113 COMPARISON: Comparison is made with prior outside examination dated 12/13/2020. FINDINGS: RIGHT Breast: There is a 1 cm x 0.6 cm x 1.1 cm hypoechoic irregular nodular density at the 7:30 position of the breast at 6 cm from the nipple. A biopsy is recommended. IMPRESSION: 1 cm x 1.1 cm x 0.6 cm hypoechoic irregular nodular density at the 7:30 position of the right breast at 6 cm from nipple. Biopsy recommended. ASSESSMENT CATEGORY: BIRADS Category 4: Suspicious - Biopsy Should Be Considered. A letter regarding these results will be sent to the patient by the facility within 30 days. Electronically Signed: Suleman Soto MD at 12:47 EDT , Service support , STUDY: ULTRASOUND BREAST - LEFT REASON FOR EXAM: Female, 70 years old. Abnormal screening mammogram. TECHNIQUE: Axial and longitudinal images of the LEFT breast were performed with a high resolution ultrasound transducer. # OF IMAGES: 113 COMPARISON: Comparison is made with prior mammogram done earlier in the day as well as prior outside mammogram dated 12/13/2020. FINDINGS: LEFT Breast: At 3 o''clock and 4 o''clock position of the breast and 5 cm from the nipple, there are 2 benign appearing lymph nodes. US/Breast Limited Unilateral IMPRESSION: Small benign-appearing left axillary lymph nodes. ASSESSMENT CATEGORY: BIRADS Category 2: Benign. A letter regarding these results will be sent to the patient by the facility within 30 days. Electronically Signed: Suleman Soto MD at 12:48 EDT , Service support ,
== END ==
PROVIDERS: PCP Student in an Organized Health Care Education/Training Program; Referring Provider Nurse Practitioner Family; Visit Provider Nurse Practitioner Family
DX: R92.8 Other abnormal and inconclusive findings on diagnostic imaging of breast (principal)
CPT/HCPCS: 76642; 77065

== ENCOUNTER 2021-12-04 11:26 | Outpatient (CLI) | payer MEDICARE, OTHER, SELFPAY ==
--- NOTE | 2021-12-04 11:30 | BD_ITS ---
STUDY: DUAL ENERGY X-RAY ABSORPTIOMETRY / DXA REASON FOR EXAM: Female, 71 years old. M81.0. Patient is postmenopausal. TECHNIQUE: Bone Mineral Density (BMD) measurements of lumbar spine and bilateral hips were obtained. COMPARISON: Comparison is made with prior study dated 07/26/2019. FINDINGS: Lumbar Spine (L1-L4): g/cm2 (0.749) / T-score (-3.0) / Z-score (-0.8) Findings are suggestive of osteoporosis with a high fracture risk. Left Femur Total: g/cm2 (0.674) / T-score (-2.2) / Z-score (-0.7) Left Femoral Neck: g/cm2 (0.578) / T-score (-2.4) / Z-score (-0.7) Right Femur Total: g/cm2 (0.691) / T-score (-2.1) / Z-score (-0.6) Right Femoral Neck: g/cm2 (0.624) / T-score (-2.0) / Z-score (-0.2) The T-Scores on the most recent prior examination were: Lumbar Spine (L1-L4): There has been improvement of bone density since the previous examination. Left Femur Total: which represents a worsening of 5.1%. Right Femur Total: which represents a worsening of 4.2%. BD/Dexa Bone Density Study IMPRESSION: The patient is considered osteoporotic as outlined below according to World Jesus Organization (WHO) criteria with a high fracture risk. There has been worsening of bone density since the previous examination. Reference Information: The T-score is the number of standard deviations above or below the standard which is normal for young adults at their peak bone mineral density. The World Health Organization (WHO) interprets the T-scores as follows: Above -1 Normal bone density Between -1 and -2.5 Osteopenia Equal to / or below -2.5 Osteoporosis As a practical clinical guideline, osteopenia may be graded as follows: Mild -1 through -1.5 Moderate -1.6 through -2.0 Severe -2.1 through -2.4 The Z-score is the number of standard deviations above or below age-matched controls. A Z-score of less than -1.5 would be considered abnormal. References: 1. NIH Osteoporosis and Related Bone Diseases www osteo.org 2. International Society for Clinical Densitometry www iscd.org 3. National Osteoporosis Foundation www nof.org Electronically Signed: Suleman Soto MD at 15:45 EDT ,
== END 2021-12-04 23:59 | disposition home or self-care (01) ==
LOC: OPBI 11:27
PROVIDERS: PCP Student in an Organized Health Care Education/Training Program; Referring Provider Nurse Practitioner Family; Visit Provider Nurse Practitioner Family
DX: M81.0 Age-related osteoporosis without current pathological fracture (principal); M25.561 Pain in right knee; M25.562 Pain in left knee; M25.521 Pain in right elbow; M25.522 Pain in left elbow; M25.551 Pain in right hip; M25.552 Pain in left hip
CPT/HCPCS: 77080

== ENCOUNTER 2021-12-24 14:07 | Outpatient (CLI) | payer MEDICARE, OTHER, SELFPAY ==
--- NOTE | 2021-12-24 14:11 | BI_ITS ---
MAMMOGRAPHY - BILATERAL SCREENING REASON FOR EXAM: Female, 71 years old. Routine annual screening examination. PERTINENT HISTORY: Grandmother with breast cancer. TECHNIQUE: Digital bilateral breast jude (3D mammographic acquisition) in the CC and MLO projections. 2-D mediolateral oblique (MLO) and craniocaudad (CC) views of both breasts were obtained. CAD: Full Field Digital Mammography with Computer Added Detection was performed. COMPARISON: Comparison is made with prior study of 11/24/2019 and 12/18/2020. FINDINGS: Breast Composition: There are scattered areas of fibroglandular density. There are no dominant masses or suspicious calcifications. Stable asymmetry of breast tissue with more breast tissue is seen in the upper-outer quadrant of the left breast as compared to the right breast. A tissue clip marker is now seen in the deep central lateral portion of the right breast. No other significant abnormalities are identified. There has been no significant change since the prior study. BI/SCRN MAMM (CAD)W/JUDE BILAT IMPRESSION: Stable bilateral screening mammogram. Yearly follow-up mammogram recommended. (A) ASSESSMENT CATEGORY: BIRADS Category 2: Benign. A letter regarding these results will be sent to the patient by the facility within 30 days. Approximately 10% of breast cancers are not detected by mammography. A normal mammogram should not delay biopsy of a clinically suspicious abnormality. [id number] Electronically Signed: Suleman Soto MD at 15:46 EDT ,
== END 2021-12-24 23:59 | disposition home or self-care (01) ==
LOC: OPBI 14:08
PROVIDERS: PCP Student in an Organized Health Care Education/Training Program; Referring Provider Student in an Organized Health Care Education/Training Program; Visit Provider Student in an Organized Health Care Education/Training Program
DX: Z12.31 Encounter for screening mammogram for malignant neoplasm of breast (principal)
CPT/HCPCS: 77063; 77067

== ENCOUNTER → 2022-01-29 | Outpatient (CLI) | payer MEDICARE, OTHER, SELFPAY ==
[2022-01-29 11:04] LABS: Absolute Lymphocyte Count 1.91 X10^3/uL (0.83-4.51); Absolute Neutrophil Count 4.4 X10^3/uL (2.0-7.7); Basophil# 0.06 X10^3/uL; Basophil% 0.8 % (0-1); Eosinophil# 0.05 X10^3/uL; Eosinophils% 0.7 % (0-5); Hematocrit 38.8 % (37-47); Hemoglobin 13.1 g/dL (12.0-15.0); Lymphocyte # 1.91 X10^3/ul (0.83-4.51); Lymphocyte % 26.9 % (19-41); Mean Corp Hgb Conc 33.8 g/dL (32-36); Mean Corpuscular Hgb 28.8 pg (27.0-32.0); Mean Corpuscular Volume 85.3 fL (81-99); Mean Platelet Vol. 9.9 fl (6.2-12.0); Monocyte# 0.68 X10^3/uL; Monocyte% 9.6 % (0-10); NRBC Flagged by Analyzer 0 % (0-5); Neutrophil # 4.38 X10^3/uL (2.7-7.7); Neutrophil % 61.7 % (47-70); Platelet Count 407 K/mm3 (150-450); RBC Distribution Width CV 13.2 % (11.6-14.6); RBC Distribution Width SD 41.2 fl (35.1-43.9); Red Blood Count 4.55 M/mm3 (4.2-5.4); White Blood Count 7.1 K/mm3 (4.4-11.0)
[2022-01-29 12:00] LABS: Anion Gap 6 (5-15); BUN 11 mg/dL (7-18); BUN/Creat Ratio 16.4 RATIO (10-20); Calcium,Total 9.4 mg/dL (8.5-10.1); Chloride 100 mmol/L (98-107); Creatinine, Serum 0.67 mg/dL (0.55-1.02); EST Glomerular Filtration Rate 92 mL/min (>60); Est Glom Filt Rate - Afr Amer 112 mL/min (>60); Glucose 103 mg/dL (74-106); Sodium Level 134 mmol/L (136-145); Thyroid Stim Hormone (TSH) 1.55 uIU/mL (0.358-3.74)
== END | disposition home or self-care (01) ==
LOC: LAB 10:07
PROVIDERS: PCP Student in an Organized Health Care Education/Training Program; Referring Provider Nurse Practitioner Gerontology; Visit Provider Nurse Practitioner Gerontology
DX: R06.00 Dyspnea, unspecified (principal); R00.2 Palpitations
CPT/HCPCS: 36415; 80048; 84443; 85025

== ENCOUNTER 2022-02-11 08:00 | Outpatient (RCR) | payer MEDICARE, OTHER, SELFPAY ==
--- NOTE | 2022-02-20 16:14 | HP.PTEVAL_ITS ---
Patient's Visit Information JED ESTEBAN is a 71 year old F referred to Physical Therapy by ANNETTE Samuel with a diagnosis of R sided sciatica, age related osteoporosis, and B hip pain. Date of Evaluation: 02/07/22 Physical Therapist: Luis Diaz DPT - Visit Plan Frequency: 2x /Week Duration: 4 Weeks Plan: Start with light prone extension (small ROM), add in US or manual as needed. May use DN. Progress core stability exercises to gym program. - Subjective Pt. is here today for her initial evaluation with diagnosis of chronic low back pain with R sided sciatica, age related osteoporosis, and B hip pain. Pt. reports overall being very active between working at home and at local gym. She does most cardio including walking on [employer] and does some core strengthening. Pt. reports walking between 2-3 miles per day, but has been doing less since her back pain started. She reports no mech of injury. She does have a significant lumbar scoliosis. She did attend an alternate PT clinic which gave her some strengthening exercises to work on in neutral spine. Pt. reports no change with the 2 visits she attended there. She reports N/T in her RLE in to calf and thigh, unchanging. Her symptoms are okay in AMs, worsen throughout the day. She is hopeful to reduce symptoms in order to get back to all recreational and gym exercises without limitations. - Pain Lumbar spine Pain Intensity (Out of 10): 3 Pain Intensity Range: 2, 5 R hip Pain Intensity (Out of 10): 3 Pain Intensity Range: 2, 5 - Objective POSTURE: Pt. has slight flexed posture. Normal iliac crest heights noted. Pt. has marked scoliosis of her lumbar spine. PALPATION: pt. has hypomobility noted throughout lumbar spine. She as very tender at B SI joints and L4/L5 region. No pain with rest of palpation. NEURO: Pt has normal sensation in BLEs. Pt. has normal DTR in BLEs. Pt. is able to rise on heels and toes without limitations. ROM: LUMBAR SPINE: flexion min loss mild increase NW, ext min loss mild increase NW, SB min loss NE, rotation min loss increase NW bilat. Pt. has normal hip ROM without increase in symptoms. She does have tight HS bilat. MMT: pt. has good strength in BLEs. No myotomal weakness. Pt. has poor core stability and loses her PPT with leg lifts and bridging. GAIT: Pt. has fairly normal gait pattern with mild increase in symptoms in RLE and hip. She has marked lateral hip sway in gait. STAIRS: Normal reciprocal pattern with 1 HR increased lateral hip sway noted. - Special Tests L/S Slump test left side: Negative L/S Slump test right side: Positive L/S Left Straight Leg Raise: Negative L/S Right Straight Leg Raise: Positive Lumbar Standing: Flexion - Mechanical Response: No effect Lumbar Standing: Flexion - Symptoms During Testing: Increases Lumbar Standing: Flexion - Symptoms After Testing: Worse Lumbar Standing: Extension - Mechanical Response: No effect Lumbar Standing: Extension - Symptoms During Testing: Increases Lumbar Standing: Extension - Symptoms After Testing: No worse Lumbar Lying: Flexion - Mechanical Response: No effect Lumbar Lying: Flexion - Symptoms During Testing: Increases Lumbar Lying: Flexion - Symptoms After Testing: No worse Lumbar Lying: Extension - Mechanical Response: No effect Lumbar Lying: Extension - Symptoms During Testing: Abolishes Lumbar Lying: Extension - Symptoms After Testing: Better Comments:: slightly better upon standing - Balance/Special Test Scores Oswestry Low Back Score: 22 - Goals Goal 1:: LTG: pt. to be I with HEP for back prophylaxis and core stability. Goal Time Frame: 4-6 Weeks Goal 2:: STG: Pt. to have increased lumbar ROM to full without increase in symptoms. Goal Time Frame: 2-4 Weeks Goal 3:: LTG: Pt. to sleep throughout the night without increase in symptoms. Goal Time Frame: 2-4 Weeks Goal 4:: LTG: pt. to resume all gym exercises without increase in RLE pain or low back pain. Goal Time Frame: 4-6 Weeks Goal 5:: LTG: Pt. to have increased core strength to fair allowing for increased stability of lumbar spine. Goal Time Frame: 4-6 Weeks - Rehabilitation Potential Physical Therapy Diagnosis: Pt. has signs and symptoms consistent with R sided sciatica, age related osteoporosis, and B hip pain. Pt. has marked lumbar scoliosis which may be effecting her symptoms. She did have a positive response with light lumbar extension. She has increased pain to even light pressure of sacrum and B SI joints as well. I would like to explore a bit into light extension then core on core stability. Rehabilitation Potential: Good - Anticipated Interventions Patient/Client Instruction: Educate patient on: Condition, Plan of Care, Risk Factors, Benefits of Fitness Program For the Purpose of:: To foster healthy habits, To improve decision making, To facilitate caregiver knowledge, To improve self management, To prevent re- injury, To improve ability to perform tasks related to life management Therapeutic Exercise to Include: Strength training, Power training, Body mechanics, Postural training, Flexibilty training, Passive ROM, Active ROM, Dynamic Lumbar Stabilization, Johny Exercises For the Purpose of:: To decrease pain, To increase ROM, To improve nutrient delivery to tissue, To increase oxygenation perfusion, To improve muscle performance and motor function, To improve ability to perform ADL's, To improve ability of physical actions for home/community/work/leisure, To improve health of tissue, To decrease soft tissue restriction Manual Therapy Techniques to Include: Mobilization, Functional dry needling, Soft tissue mobilization For the Purpose of:: To decrease pain, To decrease swelling/inflammation, To increase ROM, To improve nutrient delivery to tissue Ultrasound (thermal/non thermal): Yes For the Purpose of:: To decrease pain, To decrease swelling/inflammation, To increase ROM Thank you for the opportunity to evaluate your patient. For Medicare and Medicare HMO plans, please review the plan of care and approve it. It will need to be FAXED BACK to us at [phone] for Medicare purposes. For Medicare only, by signing this I certify the plan of care. Please let me know if there are questions or concerns regarding this plan of care. Physician Signature: ___Date:
== END 2022-02-11 19:00 | disposition home or self-care (01) ==
LOC: PT 08:00
PROVIDERS: PCP Student in an Organized Health Care Education/Training Program; Referring Provider Nurse Practitioner Family; Visit Provider Nurse Practitioner Family
DX: M54.41 Lumbago with sciatica, right side (principal); G89.29 Other chronic pain; M25.551 Pain in right hip; M25.552 Pain in left hip; M81.0 Age-related osteoporosis without current pathological fracture; M25.561 Pain in right knee; M25.562 Pain in left knee
CPT/HCPCS: 97035; 97110; 97161

== ENCOUNTER → 2022-02-18 | Outpatient (CLI) | payer MEDICARE, OTHER, SELFPAY ==
--- NOTE | 2022-02-18 06:38 | ECHOD_ITS ---
Reason For Study: Dyspnea/SOB Procedure This was a 2D Doppler, Color Flow transthoracic echocardiogram. Exam performed in department. Left Ventricle Normal LV size. Left ventricular systolic function is normal. The estimated ejection fraction is 60 %. Stage 1 diastolic dysfunction. No regional wall motion abnormalities noted. Right Ventricle Normal RV size. Normal systolic function. Atria Normal left atrium. Normal right atrium. Mitral Valve Mild mitral valve prolapse. Mild (1+) eccentric mitral valve insufficiency. Tricuspid Valve Normal tricuspid valve. Mild (1+) tricuspid valve insufficiency. Pulmonary artery systolic pressure is 40 mmHg. Aortic Valve Normal aortic valve. Trisinus/trileaflet aortic valve. Pulmonic Valve Normal pulmonic valve. Great Vessels Normal aortic root. The pulmonary artery is normal size. Normal inferior vena cava. Pericardium/Pleural No pericardial effusion. MMode/2D Measurements & Calculations LVIDd: 4.5 cm IVSd: 0.77 cm Ao root diam: 3.1 cm LVIDs: 2.7 cm LVPWd: 0.71 cm LA dimension: 4.4 cm RVDd: 4.0 cm FS: 40.5 % LAV(MOD-bp): 67.6 ml LVAd ap4: 27.7 cm2 SV(MOD-sp4): 52.9 ml LAV(MOD-bp) Indexed: 41.2 ml/m2 LVLd ap4: 7.2 cm LAV(MOD-sp2): 61.3 ml EDV(MOD-sp4): 83.4 ml LAV(MOD-sp4): 74.7 ml EDV(sp4-el): 90.3 ml LVAs ap4: 14.9 cm2 LVLs ap4: 5.9 cm ESV(MOD-sp4): 30.5 ml ESV(sp4-el): 32.1 ml EF(MOD-sp4): 63.4 % EF(sp4-el): 64.4 % SV(sp4-el): 58.1 ml LA A4 area: 22.5 cm2 RA A4 area: 14.7 cm2 Time Measurements MV dec time: 0.28 sec Doppler Measurements & Calculations MV E max clive: 75.1 cm/sec Lat Peak E' Clive: 13.0 cm/sec Med Peak E' Clive: 8.7 cm/sec MV A max clive: 105.7 cm/sec E/E' lat: 5.8 E/E' med: 8.6 MV E/A: 0.71 MV V2 max: 127.3 cm/sec MV P1/2t max clive: 118.8 cm/sec Ao V2 max: 144.9 cm/sec MV max P.5 mmHg MV P1/2t: 106.7 msec Ao max P.4 mmHg MV V2 mean: 71.0 cm/sec MV mean P.4 mmHg MV dec slope: 326.0 cm/sec2 MV V2 VTI: 37.5 cm MVA(P1/2t): 2.1 cm2 LV V1 max: 149.1 cm/sec PA V2 max: 132.9 cm/sec TR max clive: 306.8 cm/sec LV V1 max P.9 mmHg TR max P.7 mmHg ECHO/Echo Complete Interpretation Summary Normal LV size. Left ventricular systolic function is normal. The estimated ejection fraction is 60 %. Pulmonary artery systolic pressure is 40 mmHg. Stage 1 diastolic dysfunction. Mild mitral valve prolapse. Mild (1+) eccentric mitral valve insufficiency. Ordering Physician: Lilly Dove Referring Physician: Naresh Payne Performed By: Edson Fields RCS
--- NOTE | 2022-02-18 09:46 | STRESSREP_ITS ---
Stress Test Report Pharmacologic myocardial perfusion stress test. 71-year-old lady with a history of chest pain. Stress protocol: Resting EKG demonstrates normal sinus rhythm with a rate of 51 bpm normal intervals are noted. 0.4 mg of regadenoson was infused per usual protocol followed Intravenous saline flush injection continuous EKG monitoring was performed. The maximum heart rate attained was 84 bpm which was 55% of max impacted heart rate the maximum workload was 1 metabolic equivalent. At rest there were no ST or T wave changes noted to suggest abnormal flow reserve and at peak infusion nonspecific ST changes were noted with did not meet the criteria for ischemia. No clinical angina was noted. Test was terminated due to completion of the t est. The peak blood pressure is 124/80 mmHg. Myocardial perfusion protocol. 10.6 mCi of technetium 99m sestamibi was injected at rest. 0.4 mg of regadenoson was infused per usual protocol. At peak infusion 32.3 mCi of technetium 99m sestamibi was injected stress images were obtained stress and rest images were reconstructed and compared in the short axis vertical long and horizontal long axis. Gated images were also obtained to Perfusion SPECT analysis: Review of the stress images demonstrate normal uptake of tracer noted in all areas of the myocardium. The resting images similarly demonstrate normal uptake of tracer noted in all areas of the myocardium. No areas of reversibility are noted to suggest ischemia and no previous infarct is noted. Gated SPECT analysis: The gated ejection fraction is 78%. Conclusion: Normal pharmacologic myocardial perfusion stress test. Preserved ejection fraction.
== END | disposition home or self-care (01) ==
PROVIDERS: PCP Student in an Organized Health Care Education/Training Program; Referring Provider Nurse Practitioner Gerontology; Visit Provider Nurse Practitioner Gerontology
DX: R07.9 Chest pain, unspecified (principal); I25.10 Atherosclerotic heart disease of native coronary artery without angina pectoris; R00.2 Palpitations; I34.1 Nonrheumatic mitral (valve) prolapse; R06.00 Dyspnea, unspecified; Z95.5 Presence of coronary angioplasty implant and graft
CPT/HCPCS: 78452; 93017; 93225; 93226; 93306; A9500; A4216; J2785

== ENCOUNTER 2022-09-01 09:00 | Outpatient (RCR) | payer MEDICARE, OTHER, SELFPAY ==
--- NOTE | 2022-06-10 11:05 | HP.PTEVAL ---
Patient's Visit Information JED ESTEBAN is a 72 year old F referred to Physical Therapy by ANNETTE Samuel with a diagnosis of lumbar spine pain with R sided sciatica, B hip pain and chronic B knee pain. Date of Evaluation: 06/05/22 Physical Therapist: Luis Diaz DPT - Visit Plan Frequency: 3x /Week Duration: 6 Weeks Plan: Start with neutral spine core/glute/multifidus strengthening. Add in DN as needed to increase tolerance. Progress to gym exercises as able. - Subjective Pt. is here today for her initial evaluation with diagnosis of lumbar spine pain with R sided sciatica, B hip pain and chronic B knee pain. Pt. was seen here previously, but had held off to get MRIs and pain management, but is now back. She reports having increased back pain for a few months now. No N/T. She reports pain mostly in lower lumbar and upper gluteal region. She does report having some increased B knee pain at times. She reports being very active in gym, but has had to hold off due to pain in her back. Was previously walking longer distances on [employer] and doing ab/core circuits. Pt. has had several MRIs showing: moderate/sever lumbar scoliosis, minimal glute medius tendinosis, prominent thoracic kyphoscoliosis, severe C5-C6 R blaine foraminal stenosis. She has not been to pain management but is supposed to see them later this month. She reports increased pain sitting, better with walking. Pt. is sleeping well. She reports having a very difficult time sitting in worship. She reports not being able to do much working out secondary to pain. Pt. is hopeful to reduce symptoms in order to get back to all recreational and household work without increase in symptoms. - Pain Lumbar spine Pain Intensity (Out of 10): 3 Pain Intensity Range: 2, 8 B gluteal region Pain Intensity (Out of 10): 2 Pain Intensity Range: 2, 8 - Objective POSTURE: Pt. has a more of a sway back posture in stance, but is able to improve. She has marked scoliosis through lumbar and thoracic spine with trunk correction. Fairly equal iliac crest heights. Pt. has. PALPATION: pt. has increased tenderness at Lower lumbar, SI joints and to B superior aspects of gluteal musculature. She is tender along her erector spinae as well. NEURO: pt. has normal sensation in BLEs, normal DTR of BLEs as well. She is able to rise on heels and toes without limitations as well. ROM: LUMBAR SPINE: flexion nil loss NE, ext min/mod loss increase NW, SB mod los bilat NE, rotation min/mod loss B increase NW. Pt. has normal hip ROM bilaterally. MMT: Pt. has decent distal LE strength of BLEs. She has 4/5 glute and hip abductor strength. She has 4/5 trunk flexion strength and 4-5/ trunk extensor strength. Pain noted with lumbar extension MMT. GAIT: Pt. has fairly normal gait pattern, maintains her sway back posture in stance, no larger lateral hip translation noted. STAIRS: 1 HR with reciprocal pattern, no increase in symptoms. - Balance/Special Test Scores Oswestry Low Back Score: 22 - Goals Goal 1:: LTG: Pt. to be I with HEP for core and lumbar extensor strengthening in gym and home setting. Goal Time Frame: 4-6 Weeks Goal 2:: STG: Pt. to be able to sit for 1 hour with 0-2/10 pain in lumbar spine allowing for increased quality of life. Goal Time Frame: 2 Weeks Goal 3:: LTG: Pt. to have increased core, glute and lumbar extensor strength to at least 5-/5 allowing for increased core stability. Goal Time Frame: 4-6 Weeks Goal 4:: LTG: pt. to be able to stand and do all household work with 0-2/10 pain in lumbar spine. Goal Time Frame: 4-6 Weeks Goal 5:: LTG: Pt. to resume all gym activities without increase in symptoms. Goal Time Frame: 6-8 Weeks - Rehabilitation Potential Physical Therapy Diagnosis: Pt. has signs and symptoms consistent with lumbar spine pain. She has marked weakness and postural changes to her spine, but where I can provide more assistance is with her marked core and hip weakness. I would like to work on this in order to reduce stress to spine with all functional and recreational activities. Rehabilitation Potential: Good - Anticipated Interventions Patient/Client Instruction: Educate patient on: Condition, Plan of Care, Risk Factors, Benefits of Fitness Program For the Purpose of:: To improve decision making, To facilitate caregiver knowledge, To improve self management, To prevent re-injury, To improve ability to perform tasks related to life management, To improve tolerance to ADL's Therapeutic Exercise to Include: Strength training, Body mechanics, Postural training, Flexibilty training, Active ROM, Dynamic Lumbar Stabilization For the Purpose of:: To decrease pain, To decrease swelling/inflammation, To increase ROM, To improve nutrient delivery to tissue, To increase oxygenation perfusion, To improve muscle performance and motor function, To increase tolerance to activity/condition/position, To improve health of tissue, To decrease soft tissue restriction, To increase flexibility/ROM Manual Therapy Techniques to Include: Functional dry needling, Soft tissue mobilization For the Purpose of:: To decrease pain, To decrease swelling/inflammation, To increase ROM, To improve nutrient delivery to tissue, To increase oxygenation perfusion, To improve muscle performance and motor function Thank you for the opportunity to evaluate your patient. For Medicare and Medicare HMO plans, please review the plan of care and approve it. It will need to be FAXED BACK to us at [phone] for Medicare purposes. For Medicare only, by signing this I certify the plan of care. Please let me know if there are questions or concerns regarding this plan of care. Physician Signature: Date:
--- NOTE | 2022-07-17 09:00 | HP.PTREVAL_ITS ---
Reina Hobbs, MARY-C, It has been my pleasure to treat JED ESTEBAN over the last 9 visits for lumbar spine pain with R sided sciatica, B hip pain and chronic B knee pain. Please see the progress note below for an update on the physical therapy plan of care! Subjective: Pt. reports being a little bit more sore after last visit, yesterday, but is okay right now. She reports overall doing better. 3/10 pain today. Objective/Function: Pt. is overall doing much better. She is progressing with strengthening. She has marked improvement in her lumbar spine pain and strength. I want to continue to progress multifidus and core stability exercises. Plan Plan: Start with neutral spine core/glute/multifidus strengthening. Add in DN as needed to increase tolerance. Progress to gym exercises as able. Balance/Gait/Functional tests - Balance/Special Test Scores Oswestry Low Back Score: 15 Goals Goal 1:: LTG: Pt. to be I with HEP for core and lumbar extensor strengthening in gym and home setting. Goal Time Frame: 4-6 Weeks Goal Progress: Progressing Goal 2:: STG: Pt. to be able to sit for 1 hour with 0-2/10 pain in lumbar spine allowing for increased quality of life. Goal Time Frame: 2 Weeks Goal Progress: Progressing Goal 3:: LTG: Pt. to have increased core, glute and lumbar extensor strength to at least 5-/5 allowing for increased core stability. Goal Time Frame: 4-6 Weeks Goal Progress: Progressing Goal 4:: LTG: pt. to be able to stand and do all household work with 0-2/10 pain in lumbar spine. Goal Time Frame: 4-6 Weeks Goal Progress: Progressing Goal 5:: LTG: Pt. to resume all gym activities without increase in symptoms. Goal Time Frame: 6-8 Weeks Goal Progress: Progressing Anticipated Interventions Patient/Client Instruction: Educate patient on: Condition, Plan of Care, Risk Factors, Benefits of Fitness Program For the Purpose of:: To improve decision making, To facilitate caregiver knowledge, To improve self management, To prevent re-injury, To improve ability to perform tasks related to life management, To improve tolerance to ADL's Therapeutic Exercise to Include: Strength training, Body mechanics, Postural training, Flexibilty training, Active ROM, Dynamic Lumbar Stabilization For the Purpose of:: To decrease pain, To decrease swelling/inflammation, To increase ROM, To improve nutrient delivery to tissue, To increase oxygenation perfusion, To improve muscle performance and motor function, To increase tolerance to activity/condition/position, To improve health of tissue, To decre ase soft tissue restriction, To increase flexibility/ROM Manual Therapy Techniques to Include: Functional dry needling, Soft tissue mobilization For the Purpose of:: To decrease pain, To decrease swelling/inflammation, To increase ROM, To improve nutrient delivery to tissue, To increase oxygenation perfusion, To improve muscle performance and motor function Please do not hesitate to contact me at [phone] by phone or if you have questions or concerns regarding this new plan of care! Sincerely, SEA MurilloT
--- NOTE | 2022-08-04 09:55 | HP.PTREVAL ---
Reina Hobbs, MARY-C, It has been my pleasure to treat JED ESTEBAN over the last 14 visits for lumbar spine pain with R sided sciatica, B hip pain and chronic B knee pain. Please see the progress note below for an update on the physical therapy plan of care! Subjective: Pt. reports overall pain has reduced. She believes PT has been helpful. She has had 1 night when she had intense pain, but alleviated by the morning. Pt. is scheduled Aug 21, or earlier. HEP compliant. Objective/Function: Pt. continues to have pain with sitting for longer periods of time and statically standing. POSTURE: Pt. still has some sway back posture, Pt. is able to correct with VC/TCing. ROM: LUMBAR SPINE: min loss NE, extension min loss NE, SB L min loss increase R side, SB R nil loss NE, rotation nil loss bilat NE. MMT: RLE: ankle 5/5 throughout; knee: ext 38.0#, flexion 39.9#; hip: flexion 28.1#, abd: 26.3#, ext: 34.9#. LLE: ankle 5/5 throughout; knee: ext 37.3#, flexion 38.9#; hip: flexion 27.7#; abd: 26.8#, ext 36.7#. Core strength: poor + no Pain. Pt. does have increased pain with increased lumbar lordosis positioning. GAIT: Pt. has normal gait pattern. Slight sway back posture. Good arm swing. STAIRS: normal pattern noted. Overall she is improving nicely. I want to work on strengthening of her core, hip and LE musculature. She still stands and walks in a sway back posture. I would like to work on maintain her strength for better pelvic control. Plan Plan: Cont. with PT with focus on core strengthening. Progress multifidus strengthening, gym exercises as able. Increase resistances as tolerated. Balance/Gait/Functional tests - Balance/Special Test Scores Oswestry Low Back Score: 12 Goals Goal 1:: LTG: Pt. to be I with HEP for core and lumbar extensor strengthening in gym and home setting. Goal Time Frame: 4-6 Weeks Goal Progress: Progressing Goal 2:: STG: Pt. to be able to sit for 1 hour with 0-2/10 pain in lumbar spine allowing for increased quality of life. Goal Time Frame: 2 Weeks Goal Progress: Progressing Goal 3:: LTG: Pt. to have increased core, glute and lumbar extensor strength to at least 5-/5 allowing for increased core stability. Goal Time Frame: 4-6 Weeks Goal Progress: Progressing Goal 4:: LTG: pt. to be able to stand and do all household work with 0-2/10 pain in lumbar spine. Goal Time Frame: 4-6 Weeks Goal Progress: Progressing Goal 5:: LTG: Pt. to resume all gym activities without increase in symptoms. Goal Time Frame: 6-8 Weeks Goal Progress: Progressing Anticipated Interventions Patient/Client Instruction: Educate patient on: Condition, Plan of Care, Risk Factors, Benefits of Fitness Program For the Purpose of:: To improve decision making, To facilitate caregiver knowledge, To improve self management, To prevent re-injury, To improve ability to perform tasks related to life management, To improve tolerance to ADL's Therapeutic Exercise to Include: Strength training, Body mechanics, Postural training, Flexibilty training, Active ROM, Dynamic Lumbar Stabilization For the Purpose of:: To decrease pain, To decrease swelling/inflammation, To increase ROM, To improve nutrient delivery to tissue, To increase oxygenation perfusion, To improve muscle performance and motor function, To increase tolerance to activity/condition/position, To improve health of tissue, To decrease soft tissue restriction, To increase flexibility/ROM Manual Therapy Techniques to Include: Functional dry needling, Soft tissue mobilization For the Purpose of:: To decrease pain, To decrease swelling/inflammation, To increase ROM, To improve nutrient delivery to tissue, To increase oxygenation perfusion, To improve muscle performance and motor function Please do not hesitate to contact me at [phone] by phone or if you have questions or concerns regarding this new plan of care! Sincerely, Luis Diaz DPT
--- NOTE | 2022-09-01 10:04 | HP.PTREVAL ---
Reina Hobbs, MARY-C, It has been my pleasure to treat JED ESTEBAN over the last 20 visits for lumbar spine pain with R sided sciatica, B hip pain and chronic B knee pain. Please see the progress note below for an update on the physical therapy plan of care! Subjective: Pt. reports overall doing okay. She reports still having some pain across her low back, but has pain at her SI region. Objective/Function: ROM: Pt. has good ROM throughout her lumbar spine. Mild less ROM with SB to the R side. Pt. has good HS length bilaterally as well. MMT: Core strength: upper abdominal fair, lower abdominal: fair. RLE: knee: ext 43.1#, flexion 31.7# hip: flexion: 40#, abd 31.1#. LLE: knee: ext 47.1#, flexion 33.1#; hip flexion 43.3#, abd: 33.6#. GAIT: Pt. continues to ambulate with a sway back posture. Overall she is improving well. She still maintains some postural abnormalities. including sway back posture. Plan Plan: I will continue with jed with working on core stability progressing to I gym workout program. Balance/Gait/Functional tests - Balance/Special Test Scores Oswestry Low Back Score: 12 Goals Goal 1:: LTG: Pt. to be I with HEP for core and lumbar extensor strengthening in gym and home setting. Goal Time Frame: 4-6 Weeks Goal Progress: Goal Met Goal 2:: STG: Pt. to be able to sit for 1 hour with 0-2/10 pain in lumbar spine allowing for increased quality of life. Goal Time Frame: 2 Weeks Goal Progress: Progressing Goal 3:: LTG: Pt. to have increased core, glute and lumbar extensor strength to at least 5-/5 allowing for increased core stability. Goal Time Frame: 4-6 Weeks Goal Progress: Progressing Goal 4:: LTG: pt. to be able to stand and do all household work with 0-2/10 pain in lumbar spine. Goal Time Frame: 4-6 Weeks Goal Progress: Goal Met Goal 5:: LTG: Pt. to resume all gym activities without increase in symptoms. Goal Time Frame: 6-8 Weeks Goal Progress: Progressing Anticipated Interventions Patient/Client Instruction: Educate patient on: Condition, Plan of Care, Risk Factors, Benefits of Fitness Program For the Purpose of:: To improve decision making, To facilitate caregiver knowledge, To improve self management, To prevent re-injury, To improve ability to perform tasks related to life management, To improve tolerance to ADL's Therapeutic Exercise to Include: Strength training, Body mechanics, Postural training, Flexibilty training, Active ROM, Dynamic Lumbar Stabilization For the Purpose of:: To decrease pain, To decrease swelling/inflammation, To increase ROM, To improve nutrient delivery to tissue, To increase oxygenation perfusion, To improve muscle performance and motor function, To increase tolerance to activity/condition/position, To improve health of tissue, To decrease soft tissue restriction, To increase flexibility/ROM Manual Therapy Techniques to Include: Functional dry needling, Soft tissue mobilization For the Purpose of:: To decrease pain, To decrease swelling/inflammation, To increase ROM, To improve nutrient delivery to tissue, To increase oxygenation perfusion, To improve muscle performance and motor function Please do not hesitate to contact me at [phone] by phone or if you have questions or concerns regarding this new plan of care! Sincerely, Luis Diaz DPT
== END 2022-09-01 19:00 | disposition home or self-care (01) ==
LOC: PT 09:00
PROVIDERS: PCP Student in an Organized Health Care Education/Training Program; Referring Provider Nurse Practitioner Family; Visit Provider Nurse Practitioner Family
DX: M54.41 Lumbago with sciatica, right side (principal); M25.551 Pain in right hip; M25.552 Pain in left hip; M25.561 Pain in right knee; M25.562 Pain in left knee; M81.0 Age-related osteoporosis without current pathological fracture; M47.816 Spondylosis without myelopathy or radiculopathy, lumbar region
CPT/HCPCS: 97110; 97161; 97164

== ENCOUNTER 2022-12-18 11:51 | Emergency (ER) | payer MEDICARE, OTHER, SELFPAY ==
[2022-12-18 11:56] VITALS: BP 170/67; PULSE 71; RESP 13; TEMP 36.7; O2SAT 100; BMI 21.7
[2022-12-18 12:01] VITALS: BP 146/61
--- NOTE | 2022-12-18 12:30 | EKG12_ITS ---
Test Reason : CP Blood Pressure : / mmHG Vent. Rate : 065 BPM Atrial Rate : 065 BPM P-R Int : 132 ms QRS Dur : 076 ms QT Int : 426 ms P-R-T Axes : 004 008 058 degrees QTc Int : 443 ms Normal sinus rhythm Septal infarct , age undetermined Abnormal ECG Confirmed by SONJA WARD, ZONIA ([id number]), content editor RICH MIRANDA ([id number]) on 12/22/2022 10:47:30 AM Referred By: NORMA Confirmed By:KEVON CASILLAS MD
--- NOTE | 2022-12-18 12:30 | RAD_ITS ---
STUDY: X-RAY CHEST REASON FOR EXAM: Female, 72 years old. Chest pain TECHNIQUE: Single AP portable view of the chest. COMPARISON: Comparison is made with prior study June 28, 2020. FINDINGS: EKG electrode are seen. Hyperinflation. The lungs are clear. There is no demonstrated pleural abnormality. Normal size heart. Findings suggestive of prior stenting of the right coronary artery. Normal mediastinum and joe. Normal visualized pulmonary arteries. Normal visualized aortic arch and descending thoracic aorta. There is a dextroscoliosis of the thoracic spine. Normal visualized ribs, clavicles, and shoulders. There is no demonstrated abnormality of the visualized soft tissue structures of the upper abdomen. RAD/Chest 1 View (Portable) IMPRESSION: Hyperinflation. The lungs are clear. Electronically Signed: Suleman Soto MD at 12:54 EDT ,
--- NOTE | 2022-12-18 12:30 | ED.VIS.CHEST ---
HPI History of Present Illness Chief Complaint: Chest Pain Detail of Chief Complaint: Chest pain Informant: patient Narrative Narrative: Patient presents the emergency department chest discomfort that she has had for over a week. Patient tells me that she had a trip to [place] about 3 weeks ago where they drove. Patient was eating a lot of salt and noted that she had some leg swelling. She was then seen by her primary care physician when she came back and had some basic lab work obtained and she had a BNP that was elevated at 249. Patient states now her swelling has resolved. She does complain of some mild exertional dyspnea and intermittent chest discomfort that feels like an ache and pressure at times that can last up to 10 to 20 seconds. The discomfort is not necessarily exertional. Patient is concerned because she has a history of a cardiac stent 2 years ago in her RCA. She is on Plavix. Patient was ordered to have a repeat stress and echo to be performed the pain does not seem to radiate anywhere. She denies nausea or vomiting with it. But not scheduled yet. Patient did have her last stress and echo in January 2022 that was unremarkable from what she tells me. [facility] Medical History Atherosclerosis of coronary artery of [place] heart without angina pectoris COVID-19 virus detected (02/2021) DDD (degenerative disc disease), lumbar Essential hypertension GERD (gastroesophageal reflux disease) Hyperlipidemia Insomnia Nonrheumatic mitral (valve) prolapse ANDREAS treated with BiPAP Osteoporosis Raynauds disease Sliding hiatal hernia Spondylosis of lumbar region without myelopathy or radiculopathy Home Medications multivitamin 1 ea PO DAILY 06/12/16 [History Last Taken 11/06/18] calcium carbonate 400 mg calcium (1,000 mg) chewable tablet 400 mg PO DAILY 05/10/19 [History Last Taken Unknown] lansoprazole 30 mg capsule,delayed release 30 mg PO DAILY 05/10/19 [History Last Taken 07/05/20] simvastatin 40 mg tablet 40 mg PO QHS 05/10/19 [History Last Taken Unknown] cholecalciferol (vitamin D3) 125 mcg (5,000 unit) tablet 5,000 unit PO DAILY 06/01/19 [History Last Taken Unknown] bisacodyl 5 mg tablet,delayed release (Dulcolax (bisacodyl)) 5 mg PO ONCE PRN constipation 09/26/19 [History Last Taken Unknown] zinc 50 mg tablet 50 mg PO DAILY 09/26/19 [History Last Taken Unknown] aspirin 81 mg chewable tablet 81 mg PO DAILYCM 07/06/20 [Rx Last Taken Unknown] nitroglycerin 0.4 mg sublingual tablet 0.4 mg sublingual Q5-15M PRN Cardiac/Chest Pain #25 tabs 07/12/20 [Rx Last Taken Unknown] lisinopril 5 mg tablet 2.5 mg PO DAILY 08/13/20 [History Last Taken Unknown] melatonin 10 mg capsule 15 mg PO QHS 07/18/21 [History Last Taken Unknown] clopidogrel 75 mg tablet (Plavix) 75 mg PO DAILY #90 tabs 08/09/21 [Rx Last Taken Unknown] ibuprofen 600 mg tablet 600 mg PO BID inflammation #28 tabs 08/12/21 [Rx Last Taken Unknown] metoprolol tartrate 25 mg tablet 12.5 mg PO BID #180 tabs 08/12/21 [Rx Last Taken Unknown] Allergy/AdvReac Type Severity Reaction Status Date / Time nifedipine Allergy Intermediate Unknown Verified 12/18/22 11:52 pantoprazole Allergy Intermediate Unknown Verified 12/18/22 11:52 omeprazole AdvReac Intermediate Unknown Verified 12/18/22 11:52 Family History Mother Seizures CVA (cerebral vascular accident) Father CVA (cerebral vascular accident) Sister , 59 years CAD (coronary artery disease) AAA (abdominal aortic aneurysm) Addiction Surgical History History of bilateral cataract extraction History of coronary artery stent placement (07/05/20) History of left heart catheterization (2015) History of mandibular surgery History of radial keratotomy History of tonsillectomy History of total abdominal hysterectomy and bilateral salpingo-oophorectomy Social History Smoking Status: Former smoker how long ago did patient quit smokin years ago alcohol intake: current alcohol intake frequency: a few times a week Alcohol type: wine substance use type: does not use caffeine: Yes Type: coffee Number of servings: 3 ROS ROS ED Review of Systems ROS Unobtainable: other Constitutional Constitutional ED: Reports lethargy; Denies chills, fever(s), sweats or weight loss Eyes Eyes: Denies blurry vision, change in vision or diplopia ENT ENT ED: Denies rhinorrhea or sore throat Cardiovascular Cardiovascular: Reports chest pain; Denies orthopnea or racing heartbeat Respiratory/Chest Respiratory/Chest: Reports dyspnea and dyspnea on exertion; Denies cough, orthopnea or sputum Gastrointestinal Gastrointestinal: Denies abdominal pain, diarrhea, nausea or vomiting Genitourinary Genitourinary ED: Denies dysuria, hematuria or urinary frequency Musculoskeletal Musculoskeletal: Denies arthralgias, back pain, myalgias or neck pain Integumentary Denies abscess, Abrasions or rash Neurologic Neurologic: Denies headache(s) or weakness Psychiatric Psychiatric: Denies anxiety, depression or suicidal thoughts Endocrine Endocrinology: Denies polydipsia, polyphagia or polyuria Hematologic/Lymphatic Hematologic/Lymphatic: Denies easy bleeding, easy bruising or lymphadenopathy Allergic/Immunologic Allergic/Immunologic ED: Denies mouth swelling, tongue swelling or urticaria EXAM Physical Exam Const Vital Signs: 12/18/22 11:56 12/18/22 11:58 12/18/22 12:01 Temperature 98.1 F Temperature Source Temporal Pulse Rate 71 Respiratory Rate 13 Respiratory Effort Normal Non-Labored Blood Pressure 170/67 H 146/61 H Blood Pressure Mean 101 89 Pulse Ox 100 Oxygen Delivery Method Room Air 12/18/22 12:32 Temperature Temperature Source Pulse Rate Respiratory Rate Respiratory Effort Blood Pressure Blood Pressure Mean Pulse Ox Oxygen Delivery Method Room Air Positive well nourished and well developed General Appearance ED: well developed and NAD HEENT Reports TM's clear and moist mucous membranes normocephalic and atraumatic; Negative for trauma or tenderness Tympanic Membrane ED: Yes TM's clear Eyes PERRL and EOMs intact bilaterally General Eye ED: Negative for pale conjunctiva or scleral icterus Neck no lymphadenopathy, supple and no JVD General: Negative for tenderness Chest Wall inspection of chest normal and palpation of chest normal Chest: Negative for tenderness Resp normal respiratory effort and clear to auscultation bilaterally Effort and Inspection: Negative for respiratory distress or pain with movement Auscultation: Negative for rhonchi, wheezes or diminished lung sounds Cardio regular rate, regular rhythm, S1 normal heart sound, S2 normal heart sound and no murmurs Peripheral Pulses: pulses 2+ throughout GI normal to inspection, nondistended, normoactive bowel sounds, soft to palpation, non-tender, non-distended and no masses Back/Spine no CVA tenderness and no thoracic nor lumbar tenderness Extremity normal to inspection General Extremety ED: Negative for edema General Extremity: Negative for edema Neuro oriented x3, CN's II-XII intact bilaterally, no sensory deficits noted and gait normal Sensorium / Orientation: awake, alert, oriented to person, oriented to place and oriented to time Motor Exam: strength 5/5 throughout and strength abnormal Psych mental status grossly normal Skin no rashes or lesions noted and no wounds Heart Score History: Slightly/Non-Suspicious ECG: Normal Age: >/= 65 years Risk Factors: >/= 3 Risk Factors or History of CAD Troponin: </= Normal Limit Score: 4 MDM MDM MDM Narrative Medical decision making narrative: IV line established on arrival. Patient placed on a monitoring tech. No aspirin was given as she does take Plavix. In the differential would be PE versus acute coronary syndrome versus pleurisy versus musculoskeletal etiology. I will ask general. EKG obtained arrival shows sinus rhythm with a rate of 65 bpm with old septal infarct noted. No acute ST segment changes otherwise noted. Patient had a CBC with differential that was normal. Troponin was normal at 4. D-dimer was less than 0.27. Chest x-ray was normal. Etiology of patient's chest pain unclear. Suspicion for acute coronary syndrome is low. She does have a heart score of 4 given her prior history of coronary artery disease. She has had ongoing pain for over a week. She will have an an outpatient stress test and echo upcoming that has been ordered. I did review her last stress test result and echo from January 2022 which was essentially unremarkable. Patient advised to return if worsening pain, exertional dyspnea, or condition should worsen anyway. Lab Data Labs: Laboratory Results - last 24 hr 12/18/22 12/18/22 12/18/22 12:30 12:30 12:30 WBC 9.2 RBC 4.27 Hgb 12.4 Hct 38.1 MCV 89.2 MCH 29.0 MCHC 32.5 RDW Std Deviation 42.6 RDW Coeff of Addie 13.1 Plt Count 373 MPV 10.1 Immature Gran % (Auto) 0.400 Neut % (Auto) 67.1 Lymph % (Auto) 24.4 [place] % (Auto) 7.1 Eos % (Auto) 0.3 Baso % (Auto) 0.7 Absolute Neuts (auto) 6.1 Absolute Lymphs (auto) 2.23 Nucleated RBC % 0 D-Dimer Quant (PE/DVT) < 0.27 L Sodium 134 L Potassium 3.9 Chloride 100 Carbon Dioxide 23.0 Anion Gap 11 BUN 14 Creatinine 0.76 Estim Creat Clear Calc 47.10 Est GFR (MDRD) Af Amer 97 Est GFR (MDRD) Non-Af 80 BUN/Creatinine Ratio 18.4 Glucose 116 H Calcium 9.5 Troponin I High Sens 4 Radiography Chest X-Ray - ED: 1 View Diagnostic Testing: Clinical Impression(s) from Imaging Studies Chest X-Ray 12/18/22 12:30 IMPRESSION: Hyperinflation. The lungs are clear. Electronically Signed: Suleman Soto MD at 12:54 EDT , 1 view chest x-ray obtained interpreted by myself as no evidence of infiltrate or pneumothorax. No acute disease process. Radiology in agreement. EKG Initial EKG: Attestation: I personally reviewed and interpreted this EKG as follows: Comments: Sinus rhythm with a ventricular rate of 65 bpm with old septal infarct Discharge Plan Triage Chief Complaint: Chest Pain ED Provider: Maria Grullon Dx/Rx/DC Orders Clinical Impression: Chest pain Instructions: ED Chest Pain, Uncertain Cause Prescriptions: No Action cholecalciferol (vitamin D3) 5,000 unit tablet 5,000 unit PO DAILY simvastatin 40 mg tablet 40 mg PO QHS lansoprazole 30 mg capsule,delayed release(DR/EC) 30 mg PO DAILY bisacodyl [Dulcolax (bisacodyl)] 5 mg tablet,delayed release (DR/EC) 5 mg PO ONCE PRN (Reason: constipation) zinc 50 mg tablet 50 mg PO DAILY multivitamin 1 EACH tablet 1 ea PO DAILY calcium carbonate 400 mg calcium (1,000 mg) tablet,chewable 400 mg PO DAILY melatonin 10 mg capsule 15 mg PO QHS aspirin 81 MG tablet,chewable 81 mg PO DAILYCM 0RF nitroglycerin 0.4 mg tablet, sublingual 0.4 mg SUBLINGUAL Q5-15M PRN (Reason: Cardiac/Chest Pain) Qty: 25 3RF lisinopril 5 mg tablet 2.5 mg PO DAILY clopidogrel [Plavix] 75 mg tablet 75 mg PO DAILY Qty: 90 3RF ibuprofen 600 mg tablet 600 mg PO BID Qty: 28 0RF metoprolol tartrate 25 mg tablet 12.5 mg PO BID Qty: 180 3RF Primary Care Provider: Naresh Payne Referrals: Andres Mathews MD [Non-Staff] - 5-7 Days Naresh Payne DO [Primary Care Provider] - Disposition Disposition: Home, Self Care
[2022-12-18 12:57] LABS: Absolute Lymphocyte Count 2.23 X10^3/uL (0.83-4.51); Absolute Neutrophil Count 6.1 X10^3/uL (2.0-7.7); Basophil# 0.06 X10^3/uL; Basophil% 0.7 % (0-1); Eosinophil# 0.03 X10^3/uL; Eosinophils% 0.3 % (0-5); Hematocrit 38.1 % (37-47); Hemoglobin 12.4 g/dL (12.0-15.0); Lymphocyte # 2.23 X10^3/ul (0.83-4.51); Lymphocyte % 24.4 % (19-41); Mean Corp Hgb Conc 32.5 g/dL (32-36); Mean Corpuscular Volume 89.2 fL (81-99); Mean Platelet Vol. 10.1 fl (6.2-12.0); Monocyte# 0.65 X10^3/uL; Monocyte% 7.1 % (0-10); NRBC Flagged by Analyzer 0 % (0-5); Neutrophil # 6.14 X10^3/uL (2.7-7.7); Neutrophil % 67.1 % (47-70); Platelet Count 373 K/mm3 (150-450); RBC Distribution Width CV 13.1 % (11.6-14.6); RBC Distribution Width SD 42.6 fl (35.1-43.9); Red Blood Count 4.27 M/mm3 (4.2-5.4); White Blood Count 9.2 K/mm3 (4.4-11.0)
[2022-12-18 13:05] LABS: Anion Gap 11 (5-15); BUN 14 mg/dL (7-18); BUN/Creat Ratio 18.4 RATIO (10-20); Calcium,Total 9.5 mg/dL (8.5-10.1); Chloride 100 mmol/L (98-107); Creatinine, Serum 0.76 mg/dL (0.55-1.02); EST Glomerular Filtration Rate 80 mL/min (>60); Est Glom Filt Rate - Afr Amer 97 mL/min (>60); Glucose 116 mg/dL (74-106); Potassium 3.9 mmol/L (3.5-5.1); Sodium Level 134 mmol/L (136-145); Troponin-I HS (w/2H Reflex) 4 pg/mL (3.0-54.0)
[2022-12-18 13:11] LABS: D-Dimer Quantitative (DVT/PE) < 0.27 FEU/ug/m (0.27-0.49)
[2022-12-18 13:28] VITALS: BP 138/54; PULSE 79; RESP 16; O2SAT 97
[2022-12-18 14:47] LABS: Reflex Troponin-HS? (from REC) Y
== END 2022-12-18 13:40 | disposition home or self-care (01) ==
PROVIDERS: Emergency Provider Emergency Medicine; PCP Student in an Organized Health Care Education/Training Program; Visit Provider Emergency Medicine
DX: R07.9 Chest pain, unspecified (principal); I25.10 Atherosclerotic heart disease of native coronary artery without angina pectoris; I10 Essential (primary) hypertension; Z87.891 Personal history of nicotine dependence; E78.5 Hyperlipidemia, unspecified; R06.09 Other forms of dyspnea
CPT/HCPCS: 71045; 80048; 84484; 85025; 85379; 93005; 99284; A4216

== ENCOUNTER → 2022-12-29 | Outpatient (CLI) | payer MEDICARE, OTHER, SELFPAY ==
--- NOTE | 2022-12-29 12:15 | BI_ITS ---
MAMMOGRAPHY - BILATERAL SCREENING 3-D TOMOSYNTHESIS REASON FOR EXAM: Female, 72 years old. Routine screening PERTINENT HISTORY: Grandmother with breast cancer.. TECHNIQUE: 2-D mammograms and 3-D Tomosynthesis of the breast (s) were performed. CAD was performed. COMPARISON: 11/24/2019 FINDINGS: The breast composition is composed of scattered fibroglandular density. Scattered benign calcifications are seen. No dense spiculated masses or suspicious microcalcifications are identified. No architectural distortion is identified. There is no skin thickening or retraction. There has been no significant change since the prior study. BI/SCRN MAMM (CAD)W/JUDE BILAT IMPRESSION: No mammographic signs of malignancy. Routine yearly mammograms recommended. ASSESSMENT CATEGORY: BIRADS Category 2: Benign. A letter regarding these results will be sent to the patient by the facility within 30 days. FOLLOW UP RECOMMENDATION: Yearly follow up mammogram recommended. (A) Approximately 10% of breast cancers are not detected by mammography. A normal mammogram should not delay biopsy of a clinically suspicious abnormality. Electronically Signed: Chau Rosas MD at 13:02 EDT ,
== END | disposition home or self-care (01) ==
LOC: OPBI 12:12
PROVIDERS: PCP Student in an Organized Health Care Education/Training Program; Visit Provider Student in an Organized Health Care Education/Training Program
DX: Z12.31 Encounter for screening mammogram for malignant neoplasm of breast (principal)
CPT/HCPCS: 77063; 77067

== ENCOUNTER → 2023-01-12 | Outpatient (CLI) | payer MEDICARE, OTHER, SELFPAY ==
--- NOTE | 2023-01-12 06:22 | ECHOD_ITS ---
Reason For Study: CAD/ASHD Procedure This was a 2D Doppler, Color Flow transthoracic echocardiogram. Exam performed in department. Left Ventricle Normal LV size. Left ventricular systolic function is normal. The estimated ejection fraction is 60 %. Stage 1 diastolic dysfunction. No regional wall motion abnormalities noted. Right Ventricle Normal RV size. Normal systolic function. Atria Normal left atrium. Normal right atrium. Mitral Valve Normal mitral valve. Tricuspid Valve Normal tricuspid valve. Mild (1+) tricuspid valve insufficiency. Pulmonary artery systolic pressure is 42 mmHg. Aortic Valve Trisinus/trileaflet aortic valve. Pulmonic Valve Normal pulmonic valve. Great Vessels Normal aortic root. The pulmonary artery is normal size. Normal inferior vena cava. Pericardium/Pleural No pericardial effusion. MMode/2D Measurements & Calculations LVIDd: 4.4 cm IVSd: 0.75 cm Ao root diam: 3.1 cm LVIDs: 3.4 cm LVPWd: 1.0 cm RVDd: 4.0 cm FS: 22.5 % LAV(MOD-bp): 74.5 ml LVAd ap4: 26.3 cm2 SV(MOD-sp4): 49.4 ml LAV(MOD-bp) Indexed: 45.2 ml/m2 LVLd ap4: 7.5 cm LAV(MOD-sp2): 53.1 ml EDV(MOD-sp4): 74.1 ml LAV(MOD-sp4): 95.5 ml EDV(sp4-el): 78.2 ml LVAs ap4: 13.1 cm2 LVLs ap4: 5.4 cm ESV(MOD-sp4): 24.7 ml ESV(sp4-el): 26.8 ml EF(MOD-sp4): 66.7 % EF(sp4-el): 65.8 % SV(sp4-el): 51.5 ml LA A4 area: 26.2 cm2 LA dimension(2D): 4.0 cm RA A4 area: 15.9 cm2 Time Measurements MV dec time: 0.20 sec Doppler Measurements & Calculations MV E max clive: 63.2 cm/sec Lat Peak E' Clive: 17.5 cm/sec Med Peak E' Clive: 6.8 cm/sec MV A max clive: 102.4 cm/sec E/E' lat: 3.6 E/E' med: 9.3 MV E/A: 0.62 MV V2 max: 106.1 cm/sec Ao V2 max: 143.5 cm/sec MV max P.5 mmHg MV dec slope: 495.2 cm/sec2 Ao max P.3 mmHg MV V2 mean: 58.0 cm/sec Ao V2 mean: 95.5 cm/sec MV mean P.6 mmHg Ao mean P.2 mmHg MV V2 VTI: 38.9 cm Ao V2 VTI: 35.3 cm AV (velocity ratio): 0.86 LV V1 max: 124.0 cm/sec MR max clive: 526.4 cm/sec PA V2 max: 140.4 cm/sec LV V1 max P.1 mmHg MR max P.9 mmHg PA V2 mean: 106.0 cm/sec LV V1 mean P.0 mmHg LV V1 mean: 81.3 cm/sec LV V1 VTI: 30.3 cm TR max clive: 313.0 cm/sec TR max P.2 mmHg ECHO/Echo Complete Interpretation Summary Normal LV size. Left ventricular systolic function is normal. The estimated ejection fraction is 60 %. Stage 1 diastolic dysfunction. Pulmonary artery systolic pressure is 42 mmHg. Ordering Physician: HELENE HUDDLESTON Referring Physician: HELENE HUDDLESTON Performed By: Minal Bermudez RCS
--- NOTE | 2023-01-12 14:00 | STRESSREP_ITS ---
Stress Test Report Pharmacologic myocardial perfusion stress test. 72-year-old lady with a history of coronary artery disease and intermittent chest pain Resting EKG demonstrates sinus bradycardia with a rate of 51 bpm. Resting blood pressure is 132/78 mmHg. 0.4 mg of regadenoson was infused per usual protocol followed by rapid intravenous saline flush injection. Continuous EKG monitoring was performed. The maximum heart rate was 86 bpm which was 57% of max impacted heart rate the maximum workload was 1 metabolic equivalent. At rest there were no ST or T wave changes noted to suggest ischemia and at peak infusion nonspecific ST changes were noted which did not meet the criteria for ischemia. No clinical angina is noted. The final blood pressure was 130/68 mmHg. Myocardial perfusion protocol. 11.2 mCi of technetium 99m sestamibi was injected at rest. 0.4 mg of regadenoson was infused per usual protocol. At peak infusion 35 mCi of techne tium 99m sestamibi was injected stress images were obtained stress and rest images were reconstructed and compared in the short axis vertical long and horizontal long axis. Gated images were also obtained. Perfusion SPECT analysis: Review of the stress images demonstrate normal uptake of tracer noted in all areas of the myocardium. The resting images similar demonstrated normal uptake of tracer noted in all areas of the myocardium. No areas of reversibility are noted to suggest ischemia and no previous infarct is noted. Gated SPECT analysis: The gated ejection fraction is 79%. Conclusion: Normal pharmacologic myocardial perfusion stress test. Preserved ejection fraction.
== END | disposition home or self-care (01) ==
LOC: CVS 06:19
PROVIDERS: PCP Student in an Organized Health Care Education/Training Program
DX: I25.119 Atherosclerotic heart disease of native coronary artery with unspecified angina pectoris (principal); R07.9 Chest pain, unspecified
CPT/HCPCS: 78452; 93017; 93306; A9500; A4216; J2785

== ENCOUNTER → 2023-02-09 | Outpatient (CLI) | payer MEDICARE, OTHER, SELFPAY ==
--- NOTE | 2023-02-09 11:41 | ECHOD_ITS ---
Reason For Study: CAD, chest pain, palps Procedure This was a 2D Doppler, Color Flow transthoracic echocardiogram. Exam performed in department. Left Ventricle Normal LV size. Tiny VSD likely present. Left ventricular systolic function is normal. The estimated ejection fraction is 60 %. Stage 1 diastolic dysfunction. No regional wall motion abnormalities noted. Right Ventricle Normal RV size. Normal systolic function. Atria Normal left atrium. Normal right atrium. Mitral Valve Mild mitral valve prolapse. Mild mitral valve prolapse, posterior leaflet. Mild (1+) eccentric mitral valve insufficiency. Tricuspid Valve Normal tricuspid valve. Mild tricuspid valve insufficiency. Pulmonary artery systolic pressure is 42 mmHg. Aortic Valve Trisinus/trileaflet aortic valve. Trivial aortic valve insufficiency. Pulmonic Valve Normal pulmonic valve. Trivial pulmonic valve insufficiency. Great Vessels Normal aortic root. The pulmonary artery is normal size. Normal inferior vena cava. Pericardium/Pleural No pericardial effusion. MMode/2D Measurements & Calculations LVIDd: 4.0 cm IVSd: 1.1 cm Ao root diam: 2.9 cm LVIDs: 2.4 cm LVPWd: 0.72 cm RVDd: 3.8 cm FS: 39.5 % LAV(MOD-bp): 59.5 ml LVAd ap4: 27.0 cm2 LVAd ap2: 28.9 cm2 LAV(MOD-bp) Indexed: 36.8 ml/m2 LVLd ap4: 7.6 cm LVLd ap2: 8.1 cm LAV(MOD-sp2): 74.1 ml EDV(MOD-sp4): 75.9 ml EDV(MOD-sp2): 88.0 ml LAV(MOD-sp4): 45.5 ml EDV(sp4-el): 80.9 ml EDV(sp2-el): 87.7 ml LVAs ap4: 14.5 cm2 LVAs ap2: 13.6 cm2 LVLs ap4: 6.5 cm LVLs ap2: 6.6 cm ESV(MOD-sp4): 26.7 ml ESV(MOD-sp2): 24.3 ml ESV(sp4-el): 27.6 ml ESV(sp2-el): 23.7 ml EF(MOD-sp4): 64.8 % EF(MOD-sp2): 72.4 % EF(sp4-el): 65.9 % SV(MOD-sp4): 49.2 ml SV(MOD-sp2): 63.6 ml SV(sp4-el): 53.4 ml LA dimension(2D): 4.3 cm LA A4 area: 17.0 cm2 RA A4 area: 12.5 cm2 TAPSE: 1.8 cm Time Measurements MV dec time: 0.31 sec Doppler Measurements & Calculations MV E max clive: 77.7 cm/sec Lat Peak E' Clive: 15.7 cm/sec Med Peak E' Clive: 6.9 cm/sec MV A max clive: 115.3 cm/sec E/E' lat: 4.9 E/E' med: 11.3 MV E/A: 0.67 MV dec slope: 251.0 cm/sec2 Ao V2 max: 177.6 cm/sec LV V1 max: 137.5 cm/sec Ao max P.6 mmHg LV V1 max P.6 mmHg Ao V2 mean: 114.0 cm/sec LV V1 mean P.5 mmHg Ao mean P.1 mmHg LV V1 mean: 87.0 cm/sec Ao V2 VTI: 44.3 cm LV V1 VTI: 33.8 cm AV (velocity ratio): 0.76 PA V2 max: 144.1 cm/sec TR max clive: 312.1 cm/sec TR max P.0 mmHg ECHO/Echo Complete Interpretation Summary Normal LV size. Left ventricular systolic function is normal. The estimated ejection fraction is 60 %. Mild mitral valve prolapse, posterior leaflet Mild (1+) eccentric mitral valve insufficiency. Pulmonary artery systolic pressure is 42 mmHg. Stage 1 diastolic dysfunction. Tiny VSD likely present Ordering Physician: Roberto Syed Referring Physician: Naresh Payne Performed By: Sandra Morales RDCS
== END | disposition home or self-care (01) ==
LOC: CVS 11:40
PROVIDERS: PCP Student in an Organized Health Care Education/Training Program; Referring Provider Internal Medicine Cardiovascular Disease; Visit Provider Internal Medicine Cardiovascular Disease
DX: I34.1 Nonrheumatic mitral (valve) prolapse (principal)
CPT/HCPCS: 93306

== ENCOUNTER 2023-02-11 10:54 | Day surgery (SDC) | payer MEDICARE, OTHER, SELFPAY ==
[2023-02-10 14:14] VITALS: BMI 21.2
--- NOTE | 2023-02-10 14:56 | HP.PCM_ITS ---
History and Physical Date of Admission: 02/11/23 This is a 72-year-old lady who presents today for a cardiac catheterization. She has a history of coronary disease status post drug-eluting stent placed to the right coronary artery in June 2020.? She also has a history of mild mitral valve prolapse, hypertension, and Raynaud's disease.? She did contract COVID last year and she says that she thinks that she has been somewhat short of breath since then.? After her last visit she had been to the [employer] trip and noticed that she was very tired and cannot keep up with her exertion.? She also had occasional palpitations.? She was also noted to have mild pedal edema.? She denies any dizziness or diaphoresis near syncope or syncope.? She was seen here in the office and underwent a pharmacologic stress test which did not demonstrate any evidence of ischemia, an echocardiogram which demonstrated preserved ejection fraction of 60% with stage I diastolic dysfunction and 1+ mitral regurgitation, a 24-hour Holter monitor which demonstrated an average heart rate of 59 bpm and a minimum 41 bpm sinus rhythm and a maximal 119 bpm.? Intake Vital Signs See EMR Allergies See EMR Medications See EMR Ejection fraction %: 60 to 64 PFS Medical History? Atherosclerosis of coronary artery of [place] heart without angina pectoris COVID-19 virus detected (02/2021) DDD (degenerative disc disease), lumbar Essential hypertension GERD (gastroesophageal reflux disease) Hyperlipidemia Insomnia Nonrheumatic mitral (valve) prolapse ANDREAS treated with BiPAP Osteoporosis Raynauds disease Sliding hiatal hernia Spondylosis of lumbar region without myelopathy or radiculopathy Surgical History? History of bilateral cataract extraction History of coronary artery stent placement (07/05/20) History of left heart catheterization (2015) History of mandibular surgery History of radial keratotomy History of tonsillectomy History of total abdominal hysterectomy and bilateral salpingo-oophorectomy Family History? Mother Seizures CVA (cerebral vascular accident)Father CVA (cerebral vascular accident)Sister?? ,? 59 years CAD (coronary artery disease) AAA (abdominal aortic aneurysm) Addiction Social History? Smoking Status:? Former smoker how long ago did patient quit smoking:? 45 years ago alcohol intake:? current alcohol intake frequency: a few times a week Alcohol type: wine substance use type:? does not use caffeine:? Yes Type: coffee Number of servings: 3 ROS Const Const: Negative for fatigue, weakness, fever(s), headache(s), chills, frequent falls, weight gain or weight loss Eyes Eyes: Negative for blind spots, loss of peripheral vision, transient loss of vision, blurry vision, change in vision, double vision, floaters or tunnel vision ENT ENT: Negative for headache(s), dizziness, Nosebleed/epistaxis, balance problems or neck pain Cardio Chest Pain: yes Frequency: daily Onset: at rest and exercise Location: left chest Palpitations: Yes Edema: Bilateral (while traveling) Muscle aches with walking: Bilateral Resp Respiratory: Positive for SOB with activity (newer); Negative for SOB at rest or SOB orthopnea\SOB lying down GI GI: Negative nausea, vomiting, heartburn, bloating, vomiting blood/hematemesis, bright, red blood in stools or black,tarry stools Musc Musc: Negative for muscle aches/ myalgia, muscle weakness, joint pain or balance problems Neuro Neuro: Negative for dizziness, lightheadedness, near syncope, syncope, orthostatic symptoms, frequent falls, headache(s), weakness, blurry vision or double vision Moses Hematologic/Lymphatic: Negative for easy bleeding or easy bruising Endo Endo: Negative for fatigue Cardiology Exam Const Appearance: cooperative and no acute distress Nutritional Appearance: thin Orientation: alert and oriented x3 Head Head: normal to inspection Ears: hearing grossly normal bilaterally Nose: external nose normal Face and Sinus: face symmetric Eyes General: appearance normal, both eyes and all related structures Eyelids: eyelids normal Conjunctivae: conjunctivae normal Pupils: PERRL and pupil size EOM: EOM intact bilaterally Neck Neck: normal visual inspection Carotids: Negative bruit Chest Chest inspection: normal inspection of the chest and normal respiratory effort Auscultation: Bilateral: Clear to Auscultation Cardio Palpation: normal PMI Rate: regular rate Rhythm: regular rhythm Heart sounds: S1 normal and S2 normal; Negative rub, gallop or murmur GI GI: normal to inspection and soft; Negative no hepatosplenomegaly Neuro General: patient alert, patient oriented x3 and CN's II-XI intact bilaterally Skin Skin: no rashes or lesions noted Extremities Pulses: Normal: Right Posterior Tibial Pulse, Left Posterior Tibial Pulse, Right Radial Pulse and Left Radial Pulse Lower Extremity Edema: None: Bilateral Psych Psychological: normal affect Supplemental Info Supplemental Information Stress Test 01/12/2023: Pharmacologic myocardial perfusion stress test. 72-year-old lady with a history of coronary artery disease and intermittent chest pain Resting EKG demonstrates sinus bradycardia with a rate of 51 bpm. Resting blood pressure is 132/78 mmHg. 0.4 mg of regadenoson was infused per usual protocol followed by rapid intravenous saline flush injection. Continuous EKG monitoring was performed. The maximum heart rate was 86 bpm which was 57% of max impacted heart rate the maximum workload was 1 metabolic equivalent. At rest there were no ST or T wave changes noted to suggest ischemia and at peak infusion no nspecific ST changes were noted which did not meet the criteria for ischemia. No clinical angina is noted. The final blood pressure was 130/68 mmHg. Myocardial perfusion protocol. 11.2 mCi of technetium 99m sestamibi was injected at rest. 0.4 mg of regadenoson was infused per usual protocol. At peak infusion 35 mCi of technetium 99m sestamibi was injected stress images were obtained stress and rest images were reconstructed and compared in the short axis vertical long and horizontal long axis. Gated images were also obtained. Perfusion SPECT analysis: Review of the stress images demonstrate normal uptake of tracer noted in all areas of the myocardium. The resting images similar demonstrated normal uptake of tracer noted in all areas of the myocardium. No areas of reversibility are noted to suggest ischemia and no previous infarct is noted. Gated SPECT analysis: The gated ejection fraction is 79%. Conclusion: Normal pharmacologic myocardial perfusion stress test. Preserved ejection fraction. Echocardiogram 01/12/2023: Interpretation Summary Normal LV size. Left ventricular systolic function is normal. The estimated ejection fraction is 60 %. Stage 1 diastolic dysfunction. Pulmonary artery systolic pressure is 42 mmHg. Assessment and Plan Assessment and Plan (1) History of coronary artery stent placement: ?Status:?Chronic ?Comment: [id number] RCA w/ 4.00 x 16 mm Synergy Stent 10/15/20 ?Plan: Jax has a history of coronary artery disease with stent placement to her RCA in 2019. Her most recent stress test from 12/2022 was negative for ischemia. Patient continues to acknowledge chest pain, and dyspnea. We will proceed with a cardiac catheterization to further assess this. Depending on results, further recommendations will be made. (2) Nonrheumatic mitral (valve) prolapse: ?Status:?Chronic ?Comment: mild ?Plan: She does have mild mitral valve prolapse with mild regurgitation.? I would not recommend that we make any changes at this particular time. (3) Essential hypertension: ?Status:?Chronic ?Plan: She does have a history of hypertension with well-controlled blood pressures.? No changes will be made with respect to the above. (4) Hyperlipidemia: ?Status:?Chronic ?Qualifiers: ?Hyperlipidemia type:?unspecified? Qualified Code(s):?E78.5 - Hyperlipidemia, unspecified ?Plan: She does have a history of hyperlipidemia and will continue with aggressive risk factor modification.? I have reassured her that she should continue with her current therapy and I would not make any changes.
--- NOTE | 2023-02-11 12:47 | CL.D_ITS ---
Patient Name: JED ESTEBAN Study Date: 02/11/2023 Performing: Roberto Syed MD Ht: 65 inches 165.1 cm : 1950 Wt: 128 lbs 58.06 kg Age: 72 Gender: female BSA: 1.64 PROCEDURE(S) PERFORMED DC01-(28724)LHC/COR/LV CLINICAL PROFILE AND INDICATIONS Indications: Suspected CAD Heart Failure: None Stress/Imaging Stress/Image Study Performed: No CAD Presentations: Other: chest pain CONCLUSIONS Non obstructive coronary arteries Equivocal to mild mitral valve prolapse with no regurgitation and preserved ejection fraction RECOMMENDATIONS Medical therapy DESCRIPTION OF PROCEDURE The patient arrived to the procedure lab. The risks and benefits of the procedure as well as a full description of our services here and current unavailability of surgical backup were fully explained to the patient and/or their significant other prior to the catheterization. The Timeout was completed, verifying the correct patient and procedure. The patient's procedural site was prepped and draped in the usual fashion. Local anesthetic was given subcutaneously to right radial region with Lidocaine 2%. Using a modified Seldinger technique, arterial access was obtained via the right radial artery, a 6Fr sheath was inserted. Left Coronary Artery selective angiography was performed in multiple views using a 5 Fr. 4.0 [place] catheter. Right Coronary Artery selective angiography was then performed in multiple views using a 5 Fr. 4.0 [place] catheter. Left Ventriculography was performed in [place] projection using a 5 Fr. [place] catheter. LV to AO pullback pressures were then recorded.The arterial sheath was pulled and a TR Band was applied for hemostasis CORONARY ANGIOGRAPHY DOMINANCE: Right Dominant LEFT HEART ASSESSMENT Left Ventricular Ejection Fraction: by LV Gram 60 % Normal LV wall motion Normal Left Ventricular systolic function LEFT MAIN: Angiographically normal LEFT ANTERIOR DESCENDING ARTERY: Mild luminal irregularities less than 30% DIAGONAL 1: Ostial - 30 % Stenosis CIRCUMFLEX ARTERY: Mild luminal irregularities RIGHT CORONARY ARTERY: Previously placed stent is patent VALVE FINDINGS: Mitral Valve Prolapse Mild COMPLICATIONS No Complications PROCEDURE MEDICATIONS Fentanyl 50 mcg IV Versed 2 mg IV Versed 1 mg IV Versed 1 mg IV Versed 1 mg IV Oxygen: 2 L/min via nasal cannula SUMMARY OF HEMODYNAMIC DATA Time AIR REST ECG 11:38:12 AO 95/54 (72) SA 12:34:40 LV 78/6, 18 12:39:30 LV 91/12, 18 12:39:39 LV 71/0, 7 12:40:25 LVp 79/10, 25 12:40:33 AOp 85/15 (32) 12:40:40 Signed By Roberto Syed MD On 02/11/2023 12:46:29 Roberto Syed MD
== END 2023-02-11 15:15 | disposition home or self-care (01) ==
LOC: CLSP 10:57
PROVIDERS: PCP Student in an Organized Health Care Education/Training Program; Referring Provider Internal Medicine Cardiovascular Disease; Visit Provider Internal Medicine Cardiovascular Disease
DX: I34.1 Nonrheumatic mitral (valve) prolapse (principal); I25.10 Atherosclerotic heart disease of native coronary artery without angina pectoris; I34.0 Nonrheumatic mitral (valve) insufficiency; I10 Essential (primary) hypertension; E78.5 Hyperlipidemia, unspecified; K21.9 Gastro-esophageal reflux disease without esophagitis; G47.33 Obstructive sleep apnea (adult) (pediatric); Z87.891 Personal history of nicotine dependence; Z95.5 Presence of coronary angioplasty implant and graft
CPT/HCPCS: 93458; 99152; 99153; J7040; Q9967; C1769; C1894

== ENCOUNTER 2023-05-12 09:30 | Outpatient (RCR) | payer MEDICARE, OTHER, SELFPAY ==
--- NOTE | 2023-02-19 08:30 | HP.PTEVAL_ITS ---
Patient's Visit Information JED ESTEBAN is a 72 year old F referred to Physical Therapy by GERTRUDE JONAS with a diagnosis of Low back pain, scoliosis. Date of Evaluation: 01/29/23 Physical Therapist: Luis Diaz DPT - Visit Plan Frequency: 2-3x /Week Duration: 6 Weeks Plan: Start with core and hip strengthening in neutral spine. Add in multifidus strengthening as tolerated. Progress in complexity as tolerated. - Subjective Pt. is here today for her initial evaluation with diagnosis of low back pain and scoliosis. Pt. has had a series of injections which has helped, but not fully. She reports doing her exercises from previously, but has become lax with them since having issues with her husbands health. Pt. is having pain with most activities, sitting is better than standing. She is sleeping okay. No N/T in either LE. Pt. reports no sudden weakness or saddle region pain. Pt. is able to walk well. Pt. is hopeful to get back to all recreational activities and taking care of her without back pain or limitations. - Pain Lumbar spine Pain Intensity (Out of 10): 2 Pain Intensity Range: 0, 5 - Objective POSTURE: Pt. has a general flexed posture. Pt. does have a marked lumbothoraco scoliosis. Pt. has general flexed posture with sway back posture. PALPATION: Pt. has tenderness along multifidus. Not much with spring testing throughout lumbar spine. NEURO: Pt. has normal sensation and normal DTR of BLEs. ROM: LUMBAR SPINE: flexion normal, extension mod loss increase NW, SB mod loss increase NW bilat. rotation mod loss increase NW bilat. Pt. has normal HS length, tightness in B hip flexors. MMT: distal LEs 5-/5 throughout. B hips 4/5 throughout. Core strength- flexion fair-, lumbar extension poor. GAIT: pt. ambulates with sway back posture. Pt. tends to rest on hip flexors, lacks hips extension with gait. - Balance/Special Test Scores Oswestry Low Back Score: 10 - Goals Goal 1:: LTG: Pt. to be I with HEP. Goal Time Frame: 4-6 Weeks Goal 2:: STG: Pt. to ambulate without increase in lumbar spine pain. Goal Time Frame: 2-4 Weeks Goal 3:: LTG: Pt to have increased core and B hip strength to 5/5 throughout. Goal Time Frame: 4-6 Weeks Goal 4:: LTG: Pt. to complete all ADls without increase in lumbar spine symptoms. Goal Time Frame: 4-6 Weeks - Rehabilitation Potential Physical Therapy Diagnosis: Pt. has signs and symptoms consistent with low back pain an scoliosis. Pt. has marked core and hip weakness and would benefit from PT to work on strength and stability in order to get back to all recreational and house work activities without limitations. Rehabilitation Potential: Good - Anticipated Interventions Patient/Client Instruction: Educate patient on: Condition, Plan of Care, Risk Factors, Benefits of Fitness Program For the Purpose of:: To foster healthy habits, To improve decision making, To facilitate caregiver knowledge, To improve self management, To prevent re- injury, To improve ability to perform tasks related to life management Therapeutic Exercise to Include: Strength training, Power training, Postural training, Dynamic Lumbar Stabilization For the Purpose of:: To decrease pain, To increase ROM, To improve nutrient delivery to tissue, To increase oxygenation perfusion, To improve muscle performance and motor function, To improve ability to perform ADL's, To improve health of tissue, To decrease soft tissue restriction, To increase flexibility/ROM Thank you for the opportunity to evaluate your patient. For Medicare and Medicare HMO plans, please review the plan of care and approve it. It will need to be FAXED BACK to us at [phone] for Medicare purposes. For Medicare only, by signing this I certify the plan of care. Please let me know if there are questions or concerns regarding this plan of care. Physician Signature: Date:
--- NOTE | 2023-03-26 14:30 | HP.PTREVAL_ITS ---
Re-Evaluation Intro: GERTRUDE JONAS, It has been my pleasure to treat JED ESTEBAN over the last 7 visits for Low back pain, scoliosis. Please see the progress note below for an update on the physical therapy plan of care! Subjective Subjective: Pt. reports overall doing much better. Pt. reports no pain currently. Pt. reports sleeping on the floor for comfort and is now sleeping in her bed. Most of her pain is in her R sided SI joint when getting up from bed. She does have some discomfort in her low back with prolonged standing. Objective Objective/Function: ROM: Pt. has good ROM throughout lumbar spine and B hips. No motion caused increased symptoms. MMT: Pt. has good strength throughout BLEs. Pt. has fair core strength, fair- trunk extension. Pt. continues to walk with a sway back posture and in stance. Pt. has difficulty correcting. I would like to continue with gym strengthening on core and pelvic strengthening. Progress gym exercises as tolerated. Most of her issues are with siting and with standing for longer periods of time. Plan Plan Plan: I would like to continue with gym strengthening on core and pelvic strengthening. Progress gym exercises as tolerated. Add in continued lumbar strengthening, posterior pevlic tilted positioning. Add in pelvic control/strengthening. Add is thoracic spine strengthening. Balance/Gait/Functional tests Balance/Special Test Scores Oswestry Low Back Score: 11 Goals Goals Goal 1:: LTG: Pt. to be I with HEP. Goal Time Frame: 4-6 Weeks Goal Progress: Progressing Goal 2:: STG: Pt. to ambulate without increase in lumbar spine pain. Goal Time Frame: 2-4 Weeks Goal Progress: Goal Met Goal 3:: LTG: Pt to have increased core and B hip strength to 5/5 throughout. Goal Time Frame: 4-6 Weeks Goal Progress: Progressing Goal 4:: LTG: Pt. to complete all ADls without increase in lumbar spine symptoms. Goal Time Frame: 4-6 Weeks Goal Progress: Progressing Anticipated Interventions Anticipated Interventions Patient/Client Instruction: Educate patient on: Condition, Plan of Care, Risk Factors and Benefits of Fitness Program For the Purpose of:: To foster healthy habits, To improve decision making, To facilitate caregiver knowledge, To improve self management, To prevent re-injury and To improve ability to perform tasks related to life management Therapeutic Exercise to Include: Strength training, Power training, Postural training and Dynamic Lumbar Stabilization For the Purpose of:: To decrease pain, To increase ROM, To improve nutrient delivery to tissue, To increase oxygenation perfusion, To improve muscle perform ance and motor function, To improve ability to perform ADL's, To improve health of tissue, To decrease soft tissue restriction and To increase flexibility/ROM Re-Evaluation Ending Re-evaluation ending: Please do not hesitate to contact me at [phone] by phone or if you have questions or concerns regarding this new plan of care! Sincerely, SEA MurilloT
== END 2023-05-12 19:00 | disposition home or self-care (01) ==
LOC: PT 09:30
PROVIDERS: PCP Student in an Organized Health Care Education/Training Program
DX: M47.816 Spondylosis without myelopathy or radiculopathy, lumbar region (principal); M41.125 Adolescent idiopathic scoliosis, thoracolumbar region; M51.36 Other intervertebral disc degeneration, lumbar region; M41.35 Thoracogenic scoliosis, thoracolumbar region
CPT/HCPCS: 97110; 97161; 97164

== ENCOUNTER → 2024-01-05 | Outpatient (CLI) | payer MEDICARE, OTHER, SELFPAY ==
[2024-01-05 15:46] LABS: Absolute Lymphocyte Count 2.12 X10^3/uL (0.83-4.51); Basophil# 0.05 X10^3/uL; Basophil% 0.6 % (0-1); Eosinophil# 0.07 X10^3/uL; Eosinophils% 0.9 % (0-5); Hemoglobin 13.4 g/dL (12.0-15.0); Lymphocyte # 2.12 X10^3/ul (0.83-4.51); Lymphocyte % 26.6 % (19-41); Mean Corp Hgb Conc 32.7 g/dL (32-36); Mean Corpuscular Hgb 29.3 pg (27.0-32.0); Mean Corpuscular Volume 89.7 fL (81-99); Mean Platelet Vol. 9.8 fl (6.2-12.0); Monocyte# 0.67 X10^3/uL; Monocyte% 8.4 % (0-10); NRBC Flagged by Analyzer 0 % (0-5); Neutrophil # 5.03 X10^3/uL (2.7-7.7); Neutrophil % 63.2 % (47-70); Platelet Count 338 K/mm3 (150-450); RBC Distribution Width CV 13.2 % (11.6-14.6); RBC Distribution Width SD 43.2 fl (35.1-43.9); Red Blood Count 4.57 M/mm3 (4.2-5.4)
[2024-01-05 16:22] LABS: AST(SGOT) 21 U/L (15-37); Alanine Aminotransfer ALT/SGPT 35 U/L (13-56); Albumin, Serum 4.1 g/dL (3.2-5.0); Alkaline Phosphatase 99 U/L (45-117); Anion Gap 7 (5-15); BUN 15 mg/dL (7-18); BUN/Creat Ratio 14.3 RATIO (10-20); Bilirubin, Direct 0.15 mg/dL (0.00-0.30); Calcium,Total 9.2 mg/dL (8.5-10.1); Chloride 101 mmol/L (98-107); Cholesterol 181 mg/dL (200); Creatinine, Serum 1.05 mg/dL (0.55-1.02); EST Glomerular Filtration Rate 55 mL/min (>60); Est Glom Filt Rate - Afr Amer 66 mL/min (>60); Globulin 3.5 g/dL (2.2-4.2); Glucose 101 mg/dL (74-106); High Density Lipoprotein 74 mg/dL; Protein, Total 7.6 g/dL (6.4-8.2); Sodium Level 133 mmol/L (136-145); Thyroid Stim Hormone (TSH) 2.24 uIU/mL (0.358-3.74); Triglycerides 77 mg/dL; Very Low Density Lipoprotein 15 mg/dL (5-40)
[2024-01-05 20:22] LABS: BNP,B-Type NATRIURETIC PEPTIDE 17.4 pg/mL (0-100)
== END | disposition home or self-care (01) ==
LOC: LAB 15:19
PROVIDERS: PCP Student in an Organized Health Care Education/Training Program; Referring Provider Physician Assistant Medical; Visit Provider Physician Assistant Medical
DX: R06.09 Other forms of dyspnea (principal); E78.5 Hyperlipidemia, unspecified; Z95.5 Presence of coronary angioplasty implant and graft
CPT/HCPCS: 36415; 80048; 80061; 80076; 83880; 84443; 85025

== ENCOUNTER → 2024-09-08 | Outpatient (CLI) | payer MEDICARE, OTHER, SELFPAY ==
[2024-09-08 10:03] LABS: Absolute Lymphocyte Count 1.75 X10^3/uL (0.83-4.51); Absolute Neutrophil Count 4.3 X10^3/uL (2.0-7.7); Basophil# 0.06 X10^3/uL; Basophil% 0.9 % (0-1); Eosinophil# 0.09 X10^3/uL; Eosinophils% 1.3 % (0-5); Hematocrit 38.7 % (37-47); Hemoglobin 12.8 g/dL (12.0-15.0); Lymphocyte # 1.75 X10^3/ul (0.83-4.51); Lymphocyte % 25.1 % (19-41); Mean Corp Hgb Conc 33.1 g/dL (32-36); Mean Corpuscular Volume 90.8 fL (81-99); Mean Platelet Vol. 9.9 fl (6.2-12.0); Monocyte# 0.73 X10^3/uL; Monocyte% 10.5 % (0-10); NRBC Flagged by Analyzer 0 % (0-5); Neutrophil # 4.32 X10^3/uL (2.7-7.7); Neutrophil % 61.9 % (47-70); Platelet Count 323 K/mm3 (150-450); RBC Distribution Width CV 12.8 % (11.6-14.6); RBC Distribution Width SD 42.2 fl (35.1-43.9); Red Blood Count 4.26 M/mm3 (4.2-5.4)
[2024-09-08 10:28] LABS: Anion Gap 6 (5-15); BUN 11 mg/dL (7-18); BUN/Creat Ratio 15.8 RATIO (10-20); Calcium,Total 9.2 mg/dL (8.5-10.1); Chloride 103 mmol/L (98-107); EST Glomerular Filtration Rate 88 mL/min (>60); Est Glom Filt Rate - Afr Amer 106 mL/min (>60); Glucose 101 mg/dL (74-106); Magnesium 2.4 mg/dL (1.6-2.6); Potassium 4.3 mmol/L (3.5-5.1); Sodium Level 135 mmol/L (136-145)
== END | disposition home or self-care (01) ==
PROVIDERS: PCP Student in an Organized Health Care Education/Training Program; Referring Provider Nurse Practitioner Family; Visit Provider Nurse Practitioner Family
DX: R00.2 Palpitations (principal); R42 Dizziness and giddiness
CPT/HCPCS: 36415; 80048; 83735; 84443; 85025

== ENCOUNTER → 2024-09-16 | Outpatient (CLI) | payer MEDICARE, OTHER, SELFPAY ==
--- NOTE | 2024-09-16 14:09 | STRESSREP ---
Stress Test Report Pharmacologic myocardial perfusion stress test. 74-year-old lady with a history of chest pain Resting EKG demonstrates sinus bradycardia with a rate of 46 bpm. Resting blood pressure is 138/82 mmHg. 0.4 mg of regadenoson was infused per usual protocol followed by rapid intravenous saline flush injection. Continuous EKG monitoring was performed. The maximum heart rate was 84 bpm which was 56% of max impacted heart rate the maximum workload was 1 metabolic equivalent. At rest there were no ST or T wave changes noted to suggest ischemia and at peak infusion nonspecific ST changes were noted which did not meet the criteria for ischemia. No clinical angina is noted. The final blood pressure was 126/68 mmHg. Myocardial perfusion protocol. 11.6 mCi of technetium 99m sestamibi was injected at rest. 0.4 mg of regadenoson was infused per usual protocol. At peak infusion 34.1 mCi of technetium 99m sestamibi was injected stress images were obtained stress and rest images were reconstructed and compared in the short axis vertical long and horizontal long axis. Gated images were also obtained. Perfusion SPECT analysis: Review of the stress images demonstrate normal uptake of tracer noted in all areas of the myocardium. The resting images similar demonstrated normal uptake of tracer noted in all areas of the myocardium. No areas of reversibility are noted to suggest ischemia and no previous infarct is noted. Gated SPECT analysis: The gated ejection fraction is 60%.+ Conclusion: Normal pharmacologic myocardial perfusion stress test. Preserved ejection fraction.
== END | disposition home or self-care (01) ==
PROVIDERS: PCP Student in an Organized Health Care Education/Training Program; Referring Provider Nurse Practitioner Family; Visit Provider Nurse Practitioner Family
DX: R00.2 Palpitations (principal); I48.0 Paroxysmal atrial fibrillation; I25.10 Atherosclerotic heart disease of native coronary artery without angina pectoris; I34.1 Nonrheumatic mitral (valve) prolapse; R07.9 Chest pain, unspecified; R42 Dizziness and giddiness
CPT/HCPCS: 78452; 93017; 93225; 93226; A9500; A4216; J2785

== ENCOUNTER → 2024-09-23 | Outpatient (CLI) | payer MEDICARE, OTHER, SELFPAY ==
--- NOTE | 2024-09-23 12:45 | ECHOD_ITS ---
Reason For Study: Mitral Valve Prolapse Procedure This was a 2D Doppler, Color Flow transthoracic echocardiogram. Exam performed in department. Left Ventricle Normal LV size. Tiny membranous VSD cannot be completely excluded. Left ventricular systolic function is normal. The left ventricular ejection fraction is 65 %. No regional wall motion abnormalities noted. Right Ventricle Normal RV size. Normal systolic function. Atria Normal left atrium. Normal right atrium. Mitral Valve Bileaflet diffuse mitral valve thickening. Mild mitral valve prolapse. Mild (1+) eccentric mitral valve insufficiency. Tricuspid Valve Normal tricuspid valve. Mild (1+) tricuspid valve insufficiency. Pulmonary artery systolic pressure is 33 mmHg. Aortic Valve Trisinus/trileaflet aortic valve. Pericardium/Pleural No pericardial effusion. MMode/2D Measurements & Calculations LVIDd: 4.1 cm IVSd: 0.90 cm Ao root diam: 3.0 cm LVIDs: 2.6 cm LVPWd: 0.77 cm RVDd: 3.7 cm FS: 35.6 % LAV(MOD-bp): 41.1 ml SV(MOD-sp4): 49.9 ml LVAd ap4: 25.5 cm2 LAV(MOD-bp) Indexed: 24.9 ml/m2 LVLd ap4: 7.3 cm SI(MOD-sp4): 30.3 ml/m2 LAV(MOD-sp2): 44.6 ml EDV(MOD-sp4): 71.8 ml LAV(MOD-sp4): 37.6 ml EDV(sp4-el): 75.8 ml LVAs ap4: 12.3 cm2 LVLs ap4: 5.6 cm ESV(MOD-sp4): 21.9 ml ESV(sp4-el): 23.0 ml EF(MOD-sp4): 69.5 % EF(sp4-el): 69.7 % SV(sp4-el): 52.8 ml LA dimension(2D): 4.8 cm LA A4 area: 14.8 cm2 TAPSE: 2.6 cm RA A4 area: 10.6 cm2 Time Measurements MV dec time: 0.22 sec Doppler Measurements & Calculations MV E max clive: 67.2 cm/sec Lat Peak E' Clive: 11.7 cm/sec Med Peak E' Clive: 9.2 cm/sec MV A max clive: 125.8 cm/sec E/E' lat: 5.8 E/E' med: 7.3 MV E/A: 0.53 MV V2 max: 136.2 cm/sec MV P1/2t max clive: 92.3 cm/sec Ao V2 max: 150.5 cm/sec MV max P.4 mmHg MV P1/2t: 72.3 msec Ao max P.1 mmHg MV V2 mean: 57.8 cm/sec Ao V2 mean: 95.4 cm/sec MV mean P.7 mmHg MV dec slope: 373.9 cm/sec2 Ao mean P.3 mmHg MV V2 VTI: 31.1 cm MVA(P1/2t): 3.0 cm2 Ao V2 VTI: 32.2 cm AV (velocity ratio): 0.92 LV V1 max: 129.0 cm/sec MR max clive: 568.1 cm/sec TR max clive: 274.3 cm/sec LV V1 max P.7 mmHg MR max P.1 mmHg TR max P.1 mmHg LV V1 mean P.5 mmHg LV V1 mean: 88.0 cm/sec LV V1 VTI: 29.5 cm ECHO/Echo Complete Interpretation Summary Normal LV size. Left ventricular systolic function is normal. The left ventricular ejection fraction is 65 %. Bileaflet diffuse mitral valve thickening. Mild mitral valve prolapse. Mild (1+) eccentric mitral valve insufficiency. Pulmonary artery systolic pressure is 33 mmHg. Ordering Physician: Zeenat Hurley Referring Physician: Zeenat Hurley Performed By: Edson Fields RCS
== END | disposition home or self-care (01) ==
LOC: CVS 12:44
PROVIDERS: PCP Student in an Organized Health Care Education/Training Program; Referring Provider Physician Assistant Medical; Visit Provider Physician Assistant Medical
DX: R06.09 Other forms of dyspnea (principal); I34.1 Nonrheumatic mitral (valve) prolapse
CPT/HCPCS: 93306

== ENCOUNTER → 2024-09-29 | Outpatient (CLI) | payer MEDICARE, OTHER, SELFPAY ==
[2024-09-29 08:56] LABS: Anion Gap 6 (5-15); BUN 13 mg/dL (7-18); BUN/Creat Ratio 15.7 RATIO (10-20); Calcium,Total 9.6 mg/dL (8.5-10.1); Chloride 100 mmol/L (98-107); Creatinine, Serum 0.83 mg/dL (0.55-1.02); EST Glomerular Filtration Rate 72 mL/min (>60); Est Glom Filt Rate - Afr Amer 87 mL/min (>60); Glucose 122 mg/dL (74-106); Potassium 4.5 mmol/L (3.5-5.1); Sodium Level 132 mmol/L (136-145)
[2024-09-29 08:59] LABS: BNP,B-Type NATRIURETIC PEPTIDE 17.5 pg/mL (0-100)
== END | disposition home or self-care (01) ==
PROVIDERS: PCP Student in an Organized Health Care Education/Training Program; Referring Provider Physician Assistant Medical; Visit Provider Physician Assistant Medical
DX: R06.09 Other forms of dyspnea (principal); I10 Essential (primary) hypertension
CPT/HCPCS: 36415; 80048; 83880

== ENCOUNTER → 2024-10-07 | Outpatient (CLI) | payer MEDICARE, OTHER, SELFPAY ==
[2024-10-07 09:12] LABS: Anion Gap 5 (5-15); BUN 10 mg/dL (7-18); BUN/Creat Ratio 15.6 RATIO (10-20); Calcium,Total 9.6 mg/dL (8.5-10.1); Chloride 104 mmol/L (98-107); Creatinine, Serum 0.64 mg/dL (0.55-1.02); EST Glomerular Filtration Rate 96 mL/min (>60); Est Glom Filt Rate - Afr Amer 117 mL/min (>60); Glucose 103 mg/dL (74-106); Potassium 4.3 mmol/L (3.5-5.1); Sodium Level 136 mmol/L (136-145)
== END | disposition home or self-care (01) ==
LOC: LAB 07:53
PROVIDERS: PCP Student in an Organized Health Care Education/Training Program; Referring Provider Physician Assistant Medical; Visit Provider Physician Assistant Medical
DX: R42 Dizziness and giddiness (principal)
CPT/HCPCS: 36415; 80048

== ENCOUNTER → 2024-10-10 | Outpatient (CLI) | payer MEDICARE, OTHER, SELFPAY ==
[2024-10-10 16:11] LABS: Iron 54 ug/dL (50-170); Iron Binding Capacity,Total 322 ug/dL (250-450); PERCENT IRON SATURATION 16.8 % (15.0-55.0)
== END | disposition home or self-care (01) ==
LOC: LAB 15:24
PROVIDERS: PCP Student in an Organized Health Care Education/Training Program; Referring Provider Physician Assistant Medical; Visit Provider Physician Assistant Medical
DX: R00.2 Palpitations (principal)
CPT/HCPCS: 36415; 83540; 83550; A4648